=== PATIENT | female | born 1950 | race Caucasian/White ===

== ENCOUNTER 2020-06-01 03:11 | Emergency (ER) | payer MEDICARE, BC, SELFPAY ==
[2020-06-01] VITALS (8 sets, daily range): BP systolic 117–158; BP diastolic 54–97; PULSE 67–76; RESP 16–18; TEMP 37.1; O2SAT 90–98; BMI 39.4
--- NOTE | 2020-06-01 03:53 | CTR_ITS ---
PROCEDURE INFORMATION: Exam: CT Head Without Contrast Exam date and time: 06/01/2020 4:15 AM Age: 69 years old Clinical indication: Dizziness; Additional info: Dizziness/vomiting TECHNIQUE: Imaging protocol: Computed tomography of the head without contrast. Radiation optimization: All CT scans at this facility use at least one of these dose optimization techniques: automated exposure control; mA and/or kV adjustment per patient size (includes targeted exams where dose is matched to clinical indication); or iterative reconstruction. COMPARISON: No relevant prior studies available. RADIATION DOSE METRICS: Total DLP (mGy-cm): 801.5 FINDINGS: Brain: No acute intracranial hemorrhage or mass effect. There is very mild decreased attenuation in the periventricular white matter, likely from microvascular disease. There is an old lacunar infarct in the right basal ganglia region. No definite acute infarct by CT. MRI could be more sensitive/specific for detection, as clinically directed. Ventricles: Ventricle size is normal for age. Bones/joints: No definite acute skull fracture. Sinuses: Included paranasal sinuses are essentially clear. Mastoid air cells: No significant acute finding. Vasculature: Vascular calcifications in the internal carotid and vertebral basilar systems. CT/CT head wo con* [id number] IMPRESSION: 1. No acute intracranial hemorrhage or mass effect. 2. Changes of microvascular disease, and old right lacunar infarct. 3. No definite acute infarct by CT, see above. 4. Other findings discussed above. Radiation Dose CTDIVOL = (mGy): DLP = 801.5 (mGy-cm)
--- NOTE | 2020-06-01 03:53 | CTR_ITS ---
PROCEDURE INFORMATION: Exam: CT Cervical Spine Without Contrast Exam date and time: 06/01/2020 4:15 AM Age: 69 years old Clinical indication: Neck pain TECHNIQUE: Imaging protocol: Computed tomography images of the cervical spine without contrast. Radiation optimization: All CT scans at this facility use at least one of these dose optimization techniques: automated exposure control; mA and/or kV adjustment per patient size (includes targeted exams where dose is matched to clinical indication); or iterative reconstruction. COMPARISON: No relevant prior studies available. RADIATION DOSE METRICS: Total DLP (mGy-cm): 1573.21 FINDINGS: Vertebrae: On axial CT images, no definite acute fracture is visible. Sagittal and coronal reconstructions show no fracture or subluxation. Mild to moderate degenerative disc changes and facet joint arthritis at several levels. Discs/Spinal canal/Neural foramina: No definite/significant disc herniation by CT, MRI could be more sensitive if clinically indicated. Lungs: No significant acute abnormality in the upper lungs. CT/CT cervical spin wo con* [id number] IMPRESSION: 1. No definite acute fracture or subluxation by CT. 2. Other findings discussed above. Radiation Dose CTDIVOL = (mGy): DLP = 1573.21 (mGy-cm)
--- NOTE | 2020-06-01 03:53 | XRR_ITS ---
PROCEDURE INFORMATION: Exam: XR Chest, 1 View Exam date and time: 06/01/2020 4:30 AM Age: 69 years old Clinical indication: Patient HX: Dizziness, nausea, vertigo TECHNIQUE: Imaging protocol: XR of the chest Views: 1 view. COMPARISON: CR Chest 1 [place] [id number] 06/14/2019 7:33 PM FINDINGS: Lungs: Emphysematous change and interstitial prominence. Pleural space: No pleural effusion. Heart/Mediastinum: Cardiac silhouette upper limits of normal in size. Bones/joints: Osteopenia, degenerative change, and mild scoliosis. When correlating with the previous study, no significant interval changes are present. XR/XR chest 1V portable [id number] IMPRESSION: Stable appearance of the chest, not significantly changed from 06/14/19.
[2020-06-01] MEDS: diazePAM 5 mg Tablet PO (04:14)
[2020-06-01] MEDS: sodium chloride 0.9% 1,000 ML 999 ML IV (04:15)
[2020-06-01] MEDS: ondansetron 2 mg/ML SDV 2 mL 4 MG IVP (04:16)
[2020-06-01 04:33] LABS: Basophils % 0.4 %; Eosinophils # 0.3 10^3/uL (0.0-0.8); Eosinophils % 6.2 %; Hematocrit 38.9 % (37.0-47.0); Hemoglobin 12.8 g/dL (11.5-15.3); Lymphocytes # 0.4 10^3/uL (0.8-4.8); Lymphocytes % 6.8 %; Mean Corpuscular HGB Conc 32.9 g/dL (30.0-36.0); Mean Corpuscular Hemoglobin 30.2 pg (28.0-34.0); Mean Corpuscular Volume 91.7 fL (81-99); Mean Platelet Volume 12.6 fL (7.4-10.4); Monocytes # 0.5 10^3/uL (0.2-0.9); Monocytes % 9.7 %; Neutrophils # 4.09 10^3/uL (1.8-7.7); Neutrophils % 74.9 %; Nucleated Red Blood Cells % 0 %; Platelet Count 117 10^3/cmm (130-400); Red Blood Count 4.24 10^6/uL (4.1-5.3); White Blood Count 5.5 10^3/uL (4.0-10.0)
[2020-06-01 04:41] LABS: INR 0.99 (0.8-1.2)
[2020-06-01 04:50] LABS: Alanine Aminotransferase 24 U/L (0-33); Albumin Level 4.7 g/dL (3.5-5.2); Alkaline Phosphatase 89 IU/L (35-105); Anion Gap 16.3 (5-19); Aspartate Amino Transferase 22 U/L (0-32); Blood Urea Nitrogen 14 mg/dL (8-23); Calcium 10.5 mg/dL (8.5-10.5); Carbon Dioxide 21 mmol/L (22-29); Chloride 100 mmol/L (98-107); Globulin 2.2 g/dL (1.3-4.6); Glucose 184 mg/dL (65-115); Lipase 31 U/L (13-60); Magnesium 1.5 mg/dL (1.7-2.3); Osmolality Calculated 277 mOsm/kg (285-295); Potassium 4.3 mmol/L (3.5-5.1); Sodium 133 mmol/L (136-145); Total Bilirubin 0.4 mg/dL (0.15-1.2); Total Protein 6.9 g/dL (6.6-8.7)
[2020-06-01 04:51] LABS: Troponin(5th) Baseline 6 ng/L (0-10)
[2020-06-01 04:54] LABS: Alcohol Level < 10 mg/dL (0-10)
--- NOTE | 2020-06-01 05:40 | ED_ITS ---
Documented by User: Hannah Carbajal 06/01/20 05:42 HPI - Dizziness General: Chief Complaint: Nausea/Vomiting/Diarrhea Stated Complaint: n/v x 3 days; dizzy Time Seen by Provider: 06/01/20 03:24 Source: patient Mode of arrival: ambulatory Limitations: no limitations History of Present Illness: HPI Narrative: Betty is a nice 69-year-old female who comes in complaining of a 3-day history of dizziness described as feeling off balance. She has associated nausea and vomiting and a headache. She states that she has had a headache ever since she fell in October and has been having these dizzy spells ever since then. Patient denies any chest pain, shortness of breath, palpitations, lightheadedness or otherwise. Patient states her symptoms are worse when she moves quickly or moves her head in certain positions. Associated symptoms: Reports headache(s), nausea and vomiting; Denies change in hearing, chest pain, chills, diaphoresis, ear discharge, malaise, palpitations or syncope Associated neuro symptoms: Deny confusion or numbness in extremities Review of Systems Const: Denies: fever(s), chills, body aches, fatigue, malaise or diaphoresis Eyes: Denies: change in vision, blurry vision, blind spots, photophobia, eye discharge or eye redness ENMT: Denies: throat pain, odynophagia, hoarseness, swelling of lips/tongue, oral sores, ear or mastoid pain, ear discharge, change in hearing or nasal di scharge Card: Denies: chest pain, palpitations, irregular heart rhythm, edema, lightheadedness, syncope, pre-syncope, dyspnea on exertion or orthopnea Resp: Denies: dyspnea, productive cough, non-productive cough, wheezing, hemoptysis or chest congestion GI: Reports: nausea and vomiting; Denies: abdominal pain, hematemesis, coffee ground emesis, heartburn, diarrhea, constipation, GI cramping, hematochezia or melena : Denies: flank pain, dysuria, urinary frequency, urinary urgency or hematuria Musc: Denies: neck pain, back pain, extremity pain, extremity swelling, joint pain, joint swelling, joint redness, joint warmth or joint stiffness Skin/Breast: Denies: rash, pruritus, erythema, skin tenderness or jaundice Neuro: Reports: headache(s), dizziness and vertigo; Denies: numbness in extremities, weakness in extremities, sensory changes, lack of coordination, difficulty walking, confusion, Slurred speech present or seizure-like activity Jeremy/Lymph: Denies: easy bruising, easy bleeding, petechiae, purpura or enlarged lymph nodes All/Imm: Denies: urticaria, throat swelling, tongue swelling, facial swelling or acute wheezing Physical Exam Const: COMMON NORMALS: no acute distress, patient oriented x3, no limitations, healthy appearing and well nourished GENERAL APPEARANCE: cooperative, well kempt and well developed HENMT: COMMON NORMALS: normocephalic, atraumatic, external ears normal, EAC's normal and Normal external nose present HEAD & SCALP: normal to inspection, normocephalic and atraumatic FACE & SINUS: normal facial exam and face symmetric NOSE: Normal external nose present and Normal nares present EXTERNAL EAR: Yes external ears normal EXTERNAL AUDITORY CANAL: EAC's normal MOUTH: Normal oral and palatal mucosa present, lip normal and tongue normal Eye: COMMON NORMALS: Equal, round and reactive pupils present and conjunctivae normal GENERAL EYE: appearance normal, both eyes and all related structures ALIGNMENT: Yes alignment normal PERIORBITAL: periorbital findings normal EYELID: eyelids normal CONJUNCTIVA: Yes conjunctivae normal SCLERA: sclerae normal PUPIL: Yes Equal, round and reactive pupils present Neck/C-Spine: COMMON NORMALS: full ROM, no lymphadenopathy, supple, no meningeal signs and no JVD GENERAL: Yes normal visual inspection and Yes trachea midline Chest: COMMONS NORMALS: normal inspection of the chest and normal palpation of entire chest wall Resp: COMMON NORMALS: normal respiratory effort, No retractions and No use of accessory muscles EFFORT & INSPECTION: Yes able to speak in complete sentences and Yes symmetric chest movement AUSCULTATION: no crackles, no rales, no rhonchi and no wheezes Cardio: COMMON NORMALS: no JVD, regular rate, regular rhythm, S1 normal heart sound present and S2 normal heart sound present RATE: regular rate RHYTHM: regular rhythm HEART SOUNDS: S1 normal heart sound present, S2 normal heart sound present, no click, no gallops, no murmurs, no rubs and abnormal split S2 GI: COMMON NORMALS: Soft to palpation and No hepatosplenomegaly present PALPATION: Yes Soft to palpation, No Tenderness to palpation present (GI), No Guarding due to palpation present (GI), No Rigid due to palpation, Yes No hepatosplenomegaly present, No Hernia present, No Palpable mass present and No Pulsatile mass present : COMMON NORMALS: Yes no CVA tenderness BLADDER/KIDNEY EXAM: Yes no CVA tenderness EXTERNAL FEMALE EXAM: No Hernia present Back/Pelvis: COMMON NORMALS: no CVA tenderness, thoracic and lumbar spine normal to inspection, no thoracic nor lumbar tenderness and thoraco-lumbar ROM normal Extremity: COMMON NORMALS: normal to inspection, full ROM, capillary refill normal, no joint enlargement, no clubbing, cyanosis or edema and no calf tenderness Neuro: COMMON NORMALS: patient oriented x3, CN's II-XII intact bilaterally, moves all extremities, no focal motor deficits and no sensory deficits noted MENINGEAL SIGNS: Yes no meningeal signs SPEECH: speech normal Psych: COMMON NORMALS: mental status grossly normal, Normal thought process present, cooperative, normal affect, speech normal and activity/motor behavior normal APPEARANCE: Yes well kempt SPEECH: Yes normal speech THOUGHT PROCESS: Normal thought process present Skin: COMMON NORMALS: no rashes or lesions noted, turgor normal, no jaundice, no petechiae and no mottling GENERAL SKIN EXAM: no rashes or lesions noted and turgor normal Course Vital Signs: Vital signs: Vital Signs Temperature 98.7 F 06/01/20 03:21 Pulse Rate 67 06/01/20 07:39 Respiratory Rate 18 06/01/20 07:39 Blood Pressure 120/54 06/01/20 07:39 Pulse Oximetry 98 06/01/20 07:39 MDM - Dizziness Lab Data: Labs: Lab Results 06/01/20 06/01/20 06/01/20 Range/Units 04:10 04:10 04:10 WBC 5.5 (4.0-10.0) 10^3/ uL RBC 4.24 (4.1-5.3) 10^6/u L Hgb 12.8 (11.5-15.3) g/dL Hct 38.9 (37.0-47.0) % MCV 91.7 (81-99) fL MCH 30.2 (28.0-34.0) pg MCHC 32.9 (30.0-36.0) g/dL RDW 13.0 (12.1-15.1) % Plt Count 117 L (130-400) 10^3/c mm MPV 12.6 H (7.4-10.4) fL Neut % (Auto) 74.9 % Lymph % (Auto) 6.8 % [place] % (Auto) 9.7 % Eos % (Auto) 6.2 % Baso % (Auto) 0.4 % Neut # (Auto) 4.09 (1.8-7.7) 10^3/u L Lymph # (Auto) 0.4 L (0.8-4.8) 10^3/u L [place] # (Auto) 0.5 (0.2-0.9) 10^3/u L Eos # (Auto) 0.3 (0.0-0.8) 10^3/u L Baso # (Auto) 0.0 (0.0-0.1) 10^3/u L Nucleated RBC % (a uto) 0 % Nucleated RBCs # 0.0 /100WBC PT 13.40 H (10.5-13.3) SECO NDS INR 0.99 (0.8-1.2) Sodium 133 L (136-145) mmol/L Potassium 4.3 (3.5-5.1) mmol/L Chloride 100 (98-107) mmol/L Carbon Dioxide 21 L (22-29) mmol/L Anion Gap 16.3 (5-19) BUN 14 (8-23) mg/dL Creatinine 1.0 H (0.5-0.9) mg/dL GFR Calculation 55.0 L (90-130) mL/min Glucose 184 H (65-115) mg/dL Calculated Osmolal ity 277 L (285-295) mOsm/k g Calcium 10.5 (8.5-10.5) mg/dL Magnesium 1.5 L (1.7-2.3) mg/dL Total Bilirubin 0.4 (0.15-1.2) mg/dL AST 22 (0-32) U/L ALT 24 (0-33) U/L Alkaline Phosphata se 89 (35-105) IU/L Troponin T Baselin e (0-10) ng/L Troponin T 120 Min tolowa dee-ni' (0-10) ng/L Delta Troponin T (0-10) ABS# Total Protein 6.9 (6.6-8.7) g/dL Albumin 4.7 (3.5-5.2) g/dL Globulin 2.2 (1.3-4.6) g/dL Lipase 31 (13-60) U/L Urine Color (Yellow) Urine Appearance (CLEAR) Urine pH (5-7) Ur Specific Gravit y (1.005-1.030) Urine Protein (Negative) Urine Glucose (UA) (Normal) Urine Ketones (Negative) Urine Blood (Negative) Urine Nitrate (Negative) Urine Bilirubin (NEGATIVE) Urine Urobilinogen (Negative) mg/dL Ur Leukocyte Tiffany ase (Negative) Urine RBC (0-2) /hpf Urine WBC (0-5) /hpf Ur Squamous Epith Cells (0-5) Urine Bacteria (NONE) Ethyl Alcohol < 10 (0-10) mg/dL 06/01/20 06/01/20 06/01/20 Range/Units 04:10 06:03 06:22 WBC (4.0-10.0) 10^3/ uL RBC (4.1-5.3) 10^6/u L Hgb (11.5-15.3) g/dL Hct (37.0-47.0) % MCV (81-99) fL MCH (28.0-34.0) pg MCHC (30.0-36.0) g/dL RDW (12.1-15.1) % Plt Count (130-400) 10^3/c mm MPV (7.4-10.4) fL Neut % (Auto) % Lymph % (Auto) % [place] % (Auto) % Eos % (Auto) % Baso % (Auto) % Neut # (Auto) (1.8-7.7) 10^3/u L Lymph # (Auto) (0.8-4.8) 10^3/u L [place] # (Auto) (0.2-0.9) 10^3/u L Eos # (Auto) (0.0-0.8) 10^3/u L Baso # (Auto) (0.0-0.1) 10^3/u L Nucleated RBC % (a uto) % Nucleated RBCs # /100WBC PT (10.5-13.3) SECO NDS INR (0.8-1.2) Sodium (136-145) mmol/L Potassium (3.5-5.1) mmol/L Chloride (98-107) mmol/L Carbon Dioxide (22-29) mmol/L Anion Gap (5-19) BUN (8-23) mg/dL Creatinine (0.5-0.9) mg/dL GFR Calculation (90-130) mL/min Glucose (65-115) mg/dL Calculated Osmolal ity (285-295) mOsm/k g Calcium (8.5-10.5) mg/dL Magnesium (1.7-2.3) mg/dL Total Bilirubin (0.15-1.2) mg/dL AST (0-32) U/L ALT (0-33) U/L Alkaline Phosphata se (35-105) IU/L Troponin T Baselin e 6 (0-10) ng/L Troponin T 120 Min tolowa dee-ni' 6.00 (0-10) ng/L Delta Troponin T 0 (0-10) ABS# Total Protein (6.6-8.7) g/dL Albumin (3.5-5.2) g/dL Globulin (1.3-4.6) g/dL Lipase (13-60) U/L Urine Color Yellow (Yellow) Urine Appearance Clear (CLEAR) Urine pH 5 (5-7) Ur Specific Gravit y 1.020 (1.005-1.030) Urine Protein Neg (Negative) Urine Glucose (UA) Norm (Normal) Urine Ketones Negative (Negative) Urine Blood Neg (Negative) Urine Nitrate Negative (Negative) Urine Bilirubin Neg (NEGATIVE) Urine Urobilinogen Norm (Negative) mg/dL Ur Leukocyte Tiffany ase Negative (Negative) Urine RBC None (0-2) /hpf Urine WBC None (0-5) /hpf Ur Squamous Epith Cells Rare (0-5) Urine Bacteria Trace (NONE) Ethyl Alcohol (0-10) mg/dL Discharge Plan Discharge Patient Disposition: Home, Self-Care Clinical Impression: Acute labyrinthitis Qualifiers: Laterality: bilateral Qualified Code(s): H83.03 - Labyrinthitis, bilateral Condition: Stable Prescriptions: New meclizine 25 mg tablet 25 mg PO QID PRN (Reason: dizziness) Qty: 30 RF: 0 ondansetron 4 mg tablet,disintegrating 4 mg PO Q8H PRN (Reason: nausea and vomiting) Qty: 15 RF: 0 Discharge Orders: Discharge Order (Routine); Ordered 06/01/20 Ordered By: Preet Shearer Referrals: Naren Castle MD [Primary Care Provider] - Sign Out Sign Out Data: Patient Sign Out occurred on 06/01/20 at 07:23. Patient's care was discussed, and care was transferred from to Preet Shearer. Coding Level of Care Code ED Global Category Manager for Chg Fwd Exam Comprehensive Documented by User: Preet Shearer, 06/01/20 07:44 HPI - Dizziness General: Chief Complaint: Nausea/Vomiting/Diarrhea Stated Complaint: n/v x 3 days; dizzy Time Seen by Provider: 06/01/20 03:24 Course Vital Signs: Vital signs: Vital Signs Temperature 98.7 F 06/01/20 03:21 Pulse Rate 67 06/01/20 07:39 Respiratory Rate 18 06/01/20 07:39 Blood Pressure 120/54 06/01/20 07:39 Pulse Oximetry 98 06/01/20 07:39 MDM - Dizziness Lab Data: Labs: Lab Results 06/01/20 06/01/20 06/01/20 Range/Units 04:10 04:10 04:10 WBC 5.5 (4.0-10.0) 10^3/ uL RBC 4.24 (4.1-5.3) 10^6/u L Hgb 12.8 (11.5-15.3) g/dL Hct 38.9 (37.0-47.0) % MCV 91.7 (81-99) fL MCH 30.2 (28.0-34.0) pg MCHC 32.9 (30.0-36.0) g/dL RDW 13.0 (12.1-15.1) % Plt Count 117 L (130-400) 10^3/c mm MPV 12.6 H (7.4-10.4) fL Neut % (Auto) 74.9 % Lymph % (Auto) 6.8 % [place] % (Auto) 9.7 % Eos % (Auto) 6.2 % Baso % (Auto) 0.4 % Neut # (Auto) 4.09 (1.8-7.7) 10^3/u L Lymph # (Auto) 0.4 L (0.8-4.8) 10^3/u L [place] # (Auto) 0.5 (0.2-0.9) 10^3/u L Eos # (Auto) 0.3 (0.0-0.8) 10^3/u L Baso # (Auto) 0.0 (0.0-0.1) 10^3/u L Nucleated RBC % (a uto) 0 % Nucleated RBCs # 0.0 /100WBC PT 13.40 H (10.5-13.3) SECO NDS INR 0.99 (0.8-1.2) Sodium 133 L (136-145) mmol/L Potassium 4.3 (3.5-5.1) mmol/L Chloride 100 (98-107) mmol/L Carbon Dioxide 21 L (22-29) mmol/L Anion Gap 16.3 (5-19) BUN 14 (8-23) mg/dL Creatinine 1.0 H (0.5-0.9) mg/dL GFR Calculation 55.0 L (90-130) mL/min Glucose 184 H (65-115) mg/dL Calculated Osmolal ity 277 L (285-295) mOsm/k g Calcium 10.5 (8.5-10.5) mg/dL Magnesium 1.5 L (1.7-2.3) mg/dL Total Bilirubin 0.4 (0.15-1.2) mg/dL AST 22 (0-32) U/L ALT 24 (0-33) U/L Alkaline Phosphata se 89 (35-105) IU/L Troponin T Baselin e (0-10) ng/L Troponin T 120 Min tolowa dee-ni' (0-10) ng/L Delta Troponin T (0-10) ABS# Total Protein 6.9 (6.6-8.7) g/dL Albumin 4.7 (3.5-5.2) g/dL Globulin 2.2 (1.3-4.6) g/dL Lipase 31 (13-60) U/L Urine Color (Yellow) Urine Appearance (CLEAR) Urine pH (5-7) Ur Specific Gravit y (1.005-1.030) Urine Protein (Negative) Urine Glucose (UA) (Normal) Urine Ketones (Negative) Urine Blood (Negative) Urine Nitrate (Negative) Urine Bilirubin (NEGATIVE) Urine Urobilinogen (Negative) mg/dL Ur Leukocyte Tiffany ase (Negative) Urine RBC (0-2) /hpf Urine WBC (0-5) /hpf Ur Squamous Epith Cells (0-5) Urine Bacteria (NONE) Ethyl Alcohol < 10 (0-10) mg/dL 06/01/20 06/01/20 06/01/20 Range/Units 04:10 06:03 06:22 WBC (4.0-10.0) 10^3/ uL RBC (4.1-5.3) 10^6/u L Hgb (11.5-15.3) g/dL Hct (37.0-47.0) % MCV (81-99) fL MCH (28.0-34.0) pg MCHC (30.0-36.0) g/dL RDW (12.1-15.1) % Plt Count (130-400) 10^3/c mm MPV (7.4-10.4) fL Neut % (Auto) % Lymph % (Auto) % [place] % (Auto) % Eos % (Auto) % Baso % (Auto) % Neut # (Auto) (1.8-7.7) 10^3/u L Lymph # (Auto) (0.8-4.8) 10^3/u L [place] # (Auto) (0.2-0.9) 10^3/u L Eos # (Auto) (0.0-0.8) 10^3/u L Baso # (Auto) (0.0-0.1) 10^3/u L Nucleated RBC % (a uto) % Nucleated RBCs # /100WBC PT (10.5-13.3) SECO NDS INR (0.8-1.2) Sodium (136-145) mmol/L Potassium (3.5-5.1) mmol/L Chloride (98-107) mmol/L Carbon Dioxide (22-29) mmol/L Anion Gap (5-19) BUN (8-23) mg/dL Creatinine (0.5-0.9) mg/dL GFR Calculation (90-130) mL/min Glucose (65-115) mg/dL Calculated Osmolal ity (285-295) mOsm/k g Calcium (8.5-10.5) mg/dL Magnesium (1.7-2.3) mg/dL Total Bilirubin (0.15-1.2) mg/dL AST (0-32) U/L ALT (0-33) U/L Alkaline Phosphata se (35-105) IU/L Troponin T Baselin e 6 (0-10) ng/L Troponin T 120 Min tolowa dee-ni' 6.00 (0-10) ng/L Delta Troponin T 0 (0-10) ABS# Total Protein (6.6-8.7) g/dL Albumin (3.5-5.2) g/dL Globulin (1.3-4.6) g/dL Lipase (13-60) U/L Urine Color Yellow (Yellow) Urine Appearance Clear (CLEAR) Urine pH 5 (5-7) Ur Specific Gravit y 1.020 (1.005-1.030) Urine Protein Neg (Negative) Urine Glucose (UA) Norm (Normal) Urine Ketones Negative (Negative) Urine Blood Neg (Negative) Urine Nitrate Negative (Negative) Urine Bilirubin Neg (NEGATIVE) Urine Urobilinogen Norm (Negative) mg/dL Ur Leukocyte Tiffany ase Negative (Negative) Urine RBC None (0-2) /hpf Urine WBC None (0-5) /hpf Ur Squamous Epith Cells Rare (0-5) Urine Bacteria Trace (NONE) Ethyl Alcohol (0-10) mg/dL Discharge Plan Discharge Patient Disposition: Home, Self-Care Clinical Impression: Acute labyrinthitis Qualifiers: Laterality: bilateral Qualified Code(s): H83.03 - Labyrinthitis, bilateral Condition: Stable Prescriptions: New meclizine 25 mg tablet 25 mg PO QID PRN (Reason: dizziness) Qty: 30 RF: 0 ondansetron 4 mg tablet,disintegrating 4 mg PO Q8H PRN (Reason: nausea and vomiting) Qty: 15 RF: 0 Discharge Orders: Discharge Order (Routine); Ordered 06/01/20 Ordered By: Preet Shearer Referrals: Naren Castle MD [Primary Care Provider] - Sign Out Sign Out Data: Patient Sign Out occurred on 06/01/20 at 07:23. Patient's care was discussed, and care was transferred from to Preet Shearer. Coding Level of Care Code ED Global Category Manager for Chg Fwd Exam Comprehensive
--- NOTE | 2020-06-01 05:54 | ECG_ITS ---
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 Measurements Intervals Davey Rate: 67 P: 15 WY: 195 QRS: -2 QRSD: 93 T: 3 QT: 406 QTc: 430 Interpretive Statements SINUS RHYTHM MINIMAL VOLTAGE CRITERIA FOR LVH, CONSIDER NORMAL VARIANT [MEETS CRITERIA IN ONE OF: R(aVL), S(V1), R(V5), R(V5/V6)+S(V1)] NONSPECIFIC T-WAVE ABNORMALITY No previous ECG available for comparison Electronically Signed On 06-01-2020 17:20:00 CDT by Dionne Mccoy M.D. [id number]
[2020-06-01 06:48] LABS: Troponin 5 2HR Delta 0 ABS# (0-10)
--- NOTE | 2020-06-01 07:13 | PC.NURSE ---
REPORT GIVEN TO LINH Benitez FOR PT HAND OFF.
--- NOTE | 2020-06-01 07:14 | PC.NURSE ---
Resumed care at this time.
[2020-06-01 07:27] LABS: Add Urine Culture? No; Bacteria Urine TRACE; Bilirubin Urine Neg (NEGATIVE); Blood Urine Neg (Negative); Glucose Urine UA Norm (Normal); Ketones Urine Negative (Negative); Leukocyte Esterase Urine Negative (Negative); Nitrate Urine Negative (Negative); Protein Urine Neg (Negative); Squamous Epithelial Cell Urine RARE (0-5); Urine Appearance Clear (CLEAR); Urine Color Yellow (Yellow); Urobilinogen Urine Norm (Negative); pH Urine 5 (5-7)
== END 2020-06-01 08:03 | disposition home or self-care (01) ==
PROVIDERS: Emergency Medicine; Emergency Provider Family Medicine; PCP Family Medicine
DX: H83.03 Labyrinthitis, bilateral (principal)
CPT/HCPCS: 12345; 70450; 71045; 72125; 80053; 80307; 81001; 83690; 83735; 84484; 85025; 85610; 93005; 96361; 96374; 96375; 99283; 99284; J2405; J7030

== ENCOUNTER 2020-06-07 14:07 | Outpatient (CLI) | payer MEDICARE, BC, SELFPAY ==
--- NOTE | 2020-06-07 14:17 | MM_ITS ---
WS: [id number] BILATERAL DIGITAL SCREENING MAMMOGRAPHY WITH CAD CLINICAL INFORMATION: SCREENING HISTORY: Screening mammogram. No current complaints. COMPARISON: TECHNIQUE: Bilateral CC and MLO views. FINDINGS: Scattered fibroglandular densities bilaterally. No suspicious focal mass, asymmetry, calcifications, or architectural distortion. No evidence of malignancy. Punctate and lucent centered calcifications. Stable intramammary lymph node right breast. MM/[place] [id number] IMPRESSION: BI-RADS: 2-Benign FOLLOW UP: 1 Year Follow-up Recommend return to annual screening mammography.
--- NOTE | 2020-06-07 15:30 | XR_ITS ---
WS: [id number] Bone mineral density performed on a [place], 06/07/2020 Clinical data: HYPERCALCEMIA Findings: The first 4 lumbar vertebral bodies demonstrated the bone mineral density of 0.835 g/cm2 for a young adult T score of -2.9. Measurement of the left hip reveals a bone mineral density of 0.711 g/cm2 with a young adult T score of -2.4. Measurement of the right hip reveals the bone mineral density of 0.728 g/cm2 for young adult T score of -2.2. XR/XR DEXA axial skeleton* [id number] Impression: 1. Osteoporosis of the lumbar spine. 2. Osteopenia of both hips.
== END 2020-06-07 14:08 | disposition home or self-care (01) ==
LOC: RADSHAW 14:14
PROVIDERS: PCP Family Medicine; Visit Provider Family Medicine
DX: Z12.31 Encounter for screening mammogram for malignant neoplasm of breast (principal); E83.52 Hypercalcemia; M81.8 Other osteoporosis without current pathological fracture; M85.88 Other specified disorders of bone density and structure, other site
CPT/HCPCS: 77067; 77080

== ENCOUNTER 2021-07-02 14:29 | Outpatient (CLI) | payer MEDICARE, BC, SELFPAY ==
--- NOTE | 2021-07-02 14:37 | USCV_ITS ---
Betty Mead Age: 70 Gender: F : 1950 Exam Date: 07/02/2021 14:59 Ordering Phys: Naren Castle MD Technologist: Kassy Bush [place] [facility] [place]: SWELLING LEFT LEG PAIN HISTORY: Lower extremity swelling. PROCEDURES: Venous duplex imaging was performed in only the left lower extremity. The following venous structures were evaluated: common femoral vein, profunda vein, proximal portion of the greater saphenous vein, superficial femoral vein, and the popliteal vein. In addition, the posterior tibial and peroneal trunk were evaluated. FINDINGS: Normal 2-D Doppler and augmentation and compressibility throughout the lower extremity venous structures. Additional imaging through the proximal calf veins also reveals no thrombus. Limited evaluation of the greater saphenous vein is patent with no thrombus. There appears to be a left medial knee toure's cyst or other fluid collection seen. Pt states there has been no trauma to the left leg or knee. CONCLUSIONS No evidence of left lower extremity DVT. Left popliteal cyst measuring 3.9 x 0.6 x 1.7cm Armadno Clemente MD (Electronically Signed) Final Date: 02 July 2021 17:40 S
--- NOTE | 2021-07-02 14:40 | XRR_ITS ---
PROCEDURE INFORMATION: Exam: XR Left Knee Exam date and time: 07/02/2021 2:40 PM Age: 70 years old Clinical indication: Pain; Knee; Left; Additional info: Left knee pain TECHNIQUE: Imaging protocol: XR Left knee. Views: 3 views. COMPARISON: CR [facility] [place] Foot LEFT 3 views 03/04/2018 10:46 AM FINDINGS: Bones/joints: Unremarkable. No significant finding. Soft tissues: Normal. Vasculature: Scattered atherosclerosis. XR/XR knee LT 3V* [id number] IMPRESSION: No significant knee joint abnormality.
== END 2021-07-02 14:30 | disposition home or self-care (01) ==
LOC: RAD 14:36
PROVIDERS: PCP Family Medicine; Visit Provider Family Medicine
DX: M79.89 Other specified soft tissue disorders (principal); M25.562 Pain in left knee
CPT/HCPCS: 73562; 93971

== ENCOUNTER → 2021-09-26 10:36 | Outpatient (BNVA) | payer MEDICARE, BC, SELFPAY | PROVIDERS: PCP Family Medicine; Referring Provider Family Medicine; Visit Provider Specialist | DX: M17.12 Unilateral primary osteoarthritis, left knee (principal) | CPT/HCPCS: 73560; 73565 ==

== ENCOUNTER → 2021-09-28 11:23 | Outpatient (BNVA) | payer MEDICARE, BC, SELFPAY | PROVIDERS: PCP Family Medicine; Visit Provider Specialist | DX: Z20.822 Contact with and (suspected) exposure to COVID-19 (principal); Z01.818 Encounter for other preprocedural examination | CPT/HCPCS: 87635 ==

== ENCOUNTER 2021-10-05 07:27 | Day surgery (SDC) | payer MEDICARE, BC, SELFPAY ==
[2021-10-04 16:07] VITALS: BMI 34.3
[2021-10-05] VITALS (8 sets, daily range): BP systolic 133–187; BP diastolic 64–104; PULSE 50–69; RESP 16–19; TEMP 36.1–36.9; O2SAT 90–98
[2021-10-05 08:13] LABS: Glucose Point of Care 140 mg/dL (70-110)
[2021-10-05] MEDS: sodium chloride 0.9% 1,000 ML 30 ML IV (08:25)
[2021-10-05] MEDS: CELEcoxib 200 mg Capsule 400 MG PO (08:26)
[2021-10-05] MEDS: acetaminophen 1,000 MG/100 ML PIGGYBACK 400 MG IV (08:27)
--- NOTE | 2021-10-05 08:38 | ANES.PREANE2 ---
Pre-Anesthetic Assessment Pre-Anesthetic Assessment: Height/Weight: Height 1.63 m Weight 90.718 kg Temp Pulse Resp BP Pulse Ox 97.5 F L 60 16 160/104 98 10/05/21 07:49 10/05/21 07:49 10/05/21 07:49 10/05/21 07:49 10/05/21 07:49 Preop Diagnosis: Left knee medial meniscal tear, patellar tendinitis Proposed Procedure: Operation Date: 10/05/21 09:05 Proposed Procedures p Knee Arthroscopy 92417 S83.242A(Left) - Carolyn Badleras MD Familial anesthetic complications: none Was Beta Maggie taken within 24 hours: N/A Was Clonidine taken within 24 hours: N/A Last intake: Intake Last Liquid Date 10/04/21 Last Liquid Time 20:00 Last Solid Date 10/04/21 Last Solid Time 19:30 Social: Social History: No alcohol and No tobacco Exam: Pre-Anes Outpt Exam: alert, oriented x 3, clear to auscultation bilaterally and regular rate & rhythm Airway: Cervical ROM: WNL MP: 2 Dentition: Full CV/HEM: CV/HEM: HTN Comments: Patient had episode several years ago while traveling where she had syncopal episode. She states she was on a diet and drinking excess water and was found to have low potassium and magnesium. Her HR was 30s and there was discussion that she might need pacemaker. She has since seen marketing communications associate in [place] and Dr rg. No further heart issues and it was decided no pacemaker necessary and no need for any further evaluation. pateint states she can achieve > 4 METS with no symptoms Metabolic: Metabolic: DM and Hyperlipidemia Anesthetic Plan: ASA status: 3 Anesthesia: General Risk of > 500 ml blood loss (7ml/kg in children): No Meds/Allergies Current Medications: Current Medications Generic Name Dose Route Start Last Admin Trade Name Freq PRN Reason Stop Dose Admin Sodium Chloride 1,000 mls @ 30 ml s/hr 10/05/21 07:45 10/05/21 08:25 Sodium Chloride 0.9% IV 10/06/21 07:44 30 mls/hr .Q24H MARIANO Administration PFSH Anesthesia PFSH: Medical History (Updated 09/28/21 @ 12:51 by Carolyn Balderas MD) Benign essential HTN Bradycardia Depression Diabetes Dyslipidemia Glaucoma Labyrinthitis Osteoporosis Syncope and collapse The EKG from 06/01/2020 revealed sinus rhythm, minimal left axis deviation, minimal voltage criteria for LVH and some nonspecific T wave changes. T2DM (type 2 diabetes mellitus) Surgical History H/O hysterectomy with oophorectomy Hx of appendectomy Hx of cataract removal with insertion of prosthetic lens Family History Other Hypertension Pacemaker Stroke Social History Smoking and tobacco status: never smoked Alcohol intake: never Data Anesthesia CBC & Chem 7: 10/05/21 08:10 Other Labs: Laboratory Results - last 48 hr 10/05/21 08:08 POC Glucose 140 H Cardiac Studies: No Data to Display
[2021-10-05 08:53] LABS: Alanine Aminotransferase 16 U/L (0-33); Albumin Level 4.4 g/dL (3.5-5.2); Alkaline Phosphatase 106 IU/L (35-105); Anion Gap 15.1 (5-19); Aspartate Amino Transferase 13 U/L (0-32); Blood Urea Nitrogen 15 mg/dL (8-23); Calcium 10.2 mg/dL (8.5-10.5); Carbon Dioxide 22 mmol/L (22-29); Chloride 106 mmol/L (98-107); Creatinine Clr Calc Pharmacy 71.3868; Globulin 2.5 g/dL (1.3-4.6); Glomerular Filtration Rate 82.7 mL/min (90-130); Glucose 144 mg/dL (65-115); Osmolality Calculated 291 mOsm/kg (285-295); Potassium 4.1 mmol/L (3.5-5.1); Sodium 139 mmol/L (136-145); Total Bilirubin 0.4 mg/dL (0.15-1.2); Total Protein 6.9 g/dL (6.6-8.7)
--- NOTE | 2021-10-05 09:15 | W.PM.OPSUD ---
Surgery/Procedure H&P Update DATE OF PROCEDURE: October 05, 2021 DATE H&P PERFORMED: 09/28/21 H&P UPDATE INFORMATION: I have reviewed H&P completed within last 30 days, I have examined patient prior to procedure, No changes to prior documentation and H&P is in [facility] [place] on date indicated PREOP DIAGNOSIS: Left knee medial meniscal tear, patellar tendinitis PLANNED PROCEDURE: Operation Date: 10/05/21 09:05 Proposed Procedures p Knee Arthroscopy 44137 S83.242A(Left) - Carolyn Balderas MD Related Problem List Diagnoses (1) Patellar tendonitis of left knee: (2) Acute medial meniscus tear of left knee: Qualifiers: Encounter type: initial encounter Qualified Code(s): S83.242A - Other tear of medial meniscus, current injury, left knee, initial encounter
[2021-10-05] MEDS: morphine 4 mg/mL SDV 1 mL 8 MG XX (11:13)
[2021-10-05] MEDS: ondansetron 2 mg/ML SDV 2 mL 4 MG IVP (11:35)
--- NOTE | 2021-10-05 11:39 | PM.OP ---
Operative Report Date of procedure: October 05, 2021 Pre-op Diagnosis: Left knee medial and lateral meniscal tear, patellar tendinitis, DJD Post-op diagnosis: same Post-op Findings: Significant osteoarthritic change with grade IV chondromalacia medial femoral condyle and patella. Inner rim tearing of the lateral meniscus. Posterior horn medial meniscal tear as per MRI plus inner rim tearing. Procedure Done: Left arthroscopic knee surgery with partial medial and lateral meniscectomies, chondroplasties of the patella and medial femoral condyle Pathology: none sent Surgeon: Carolyn Baldears Anesthesia: General (ASA 3) Estimated blood loss (mL): 20 Tourniquet time (min): 1 Tourniquet time: At 250 mmHg. Tourniquet removed after 1 minute secondary to venous tourniquet. IV fluids (mL): 800 Urine output (mL): 0 Urine output: No Recinos Complications: None Findings: Inner rim medial and lateral meniscal tearing with posterior horn medial meniscal tear, significant chondromalacia and osteoarthritic change along the medial femoral condyle and medial tibial plateau as well as the patellofemoral joint. Condition: stable Disposition: PACU (Then to same-day surgery for discharge to home) Brief History: This 70-year-old woman presented to my office after having an injury to her left knee. The patient had an MRI which demonstrated a posterior horn medial meniscal tear. By x-ray, she had some osteoarthritic changes. She wished to have the knee addressed as it was impacting significantly her activities of daily living. After discussion, we elected to proceed with arthroscopic knee surgery. Risks and complications were discussed with the patient. She consented to the surgical procedure. Questions were answered. Procedure: Patient was brought to the operating theater and after undergoing adequate general anesthesia, ASA 3, the patient's left lower extremity was prepped and draped in usual fashion utilizing DuraPrep. A tourniquet was placed high on the leg prior to prepping and draping. The tourniquet was elevated prior to commencement of the surgical procedure to 250 mmHg. Total tourniquet time was 1 minute. Elevation followed prepping and exsanguination, but the tourniquet functioned as a venous tourniquet as the patient's blood pressure skyrocketed once the tourniquet was elevated. The blood pressure decreased back to more normal for the patient once the tourniquet was removed. Prior to commencement of the surgical procedure, a surgical pause was performed. At the time of the surgical pause, we identified the site and side of surgery. We also confirmed the patient's identity and appropriate and timely administration of preoperative antibiotics. Preoperative surgical markings were also visualized at this time. Standard arthroscopic portals were utilized including superolateral, inferomedial, and inferolateral portals. The examination commenced in the suprapatellar pouch area where the patient was noted to have significant chondromalacia on the undersurface of the patella. The arthroscope was then passed in the medial compartment where there was noted to be significant chondromalacic changes of the medial femoral condyle and medial tibial plateau. There was also noted to be the posterior horn medial meniscal tear as described on the MRI with associated inner rim tearing of the meniscus as well. The arthroscope was then passed across the notch area where anterior cruciate ligament was visualized and found to be intact, but there was significant synovitis associated with this. The scope was passed into the lateral compartment with the knee in a [id number] position. Lateral meniscus was noted to have inner rim tearing. The lateral femoral condyle was without significant changes of chondromalacia. The lateral meniscus was addressed with the intra-articular shaver and heat wand to address the tearing. Once lateral meniscus had been thus prepared it was palpated and found to be intact and not displaceable into the knee joint. Scope was then returned to notch area where a synovectomy was performed. It was then passed into the medial compartment where the posterior horn tear of the medial meniscus was addressed with a combination of basket forceps, the intra-articular shaver, and the intra-articular heat wand. Additionally, the shaver and heat wand were used to address the significant chondromalacic changes over the entire weightbearing surface of the medial femoral condyle following this debridement of the chondromalacia and medial meniscus, the meniscus was palpated and found to be not displaceable into the knee joint. The arthroscope was then returned to the patellofemoral joint where a chondroplasty was performed of the undersurface of the patella. This chondroplasty involved use of the intra-articular shaver as well as the heat wand. Once the patella had been addressed, the scope was passed back through the knee compartments to evaluate for other abnormalities. Finding none, attention was directed to closure. The knee was copiously irrigated and suctioned dry. Following this, each portal was closed with a simple suture followed by Dermabond and Tegaderm. Additionally, the knee was injected with 28 mL of half percent ropivacaine and 8 mg of morphine. Additional 10 mL of ropivacaine was placed about the portals. Sterile dressing was placed consisting of the Dermabond, Steri-Strips, and OpSite followed by sterile soft roll and an Casey wrap. Patient was returned to Recovery Room in satisfactory condition where she will be discharged home to follow-up with me in the office as scheduled. There were no complications and no specimens. Associated Problem List Diagnoses (1) Primary osteoarthritis of left knee: (2) Acute medial meniscus tear of left knee: Qualifiers: Encounter type: initial encounter Qualified Code(s): S83.242A - Other tear of medial meniscus, current injury, left knee, initial encounter (3) Acute lateral meniscus tear of left knee: Qualifiers: Encounter type: initial encounter Qualified Code(s): S83.282A - Other tear of lateral meniscus, current injury, left knee, initial encounter (4) Patellar tendonitis of left knee:
[2021-10-05] MEDS: HYDROcodone-acetaminophen 5-325 mg Tablet 1 TAB PO (12:33)
--- NOTE | 2021-10-05 14:17 | ANE.PACU2 ---
Inpatient post-anesthesia follow up: Airway intact: Yes Vital signs: Temperature 97 F Pulse Rate 50 Respiratory Rate 16 Blood Pressure 156/64 Pulse Oximetry 96 Oxygen Delivery Me thod Room Air Oxygen Flow Rate 2 Fraction of Inspir ed Oxygen Hydration adequate: Yes Nausea and vomiting: No Pain level: 2 Mental status: Baseline
== END 2021-10-05 13:10 | disposition home or self-care (01) ==
PROVIDERS: PCP Family Medicine; Visit Provider Specialist
PROC: (CPT 29870; principal; 2021-10-05 08:55)
DX: S83.282A Other tear of lateral meniscus, current injury, left knee, initial encounter (principal); S83.242A Other tear of medial meniscus, current injury, left knee, initial encounter; X58.XXXA Exposure to other specified factors, initial encounter; M76.52 Patellar tendinitis, left knee; M17.12 Unilateral primary osteoarthritis, left knee; I10 Essential (primary) hypertension; E11.9 Type 2 diabetes mellitus without complications; E78.5 Hyperlipidemia, unspecified; M81.0 Age-related osteoporosis without current pathological fracture; Z82.49 Family history of ischemic heart disease and other diseases of the circulatory system; Z82.3 Family history of stroke
CPT/HCPCS: 29880; 36415; 36416; 80053; 82962; J0690; J1100; J2270; J2405; J2704; J2795; J3010; J3490; J7030

== ENCOUNTER 2021-11-06 14:32 | Outpatient (RCR) | payer MEDICARE, BC, SELFPAY | END 2021-11-23 23:59 | disposition home or self-care (01) | LOC: SPT 14:32 | PROVIDERS: PCP Family Medicine; Referring Provider Specialist; Visit Provider Specialist | DX: Z48.89 Encounter for other specified surgical aftercare (principal) | CPT/HCPCS: 97110; 97161 ==

== ENCOUNTER 2021-11-24 06:00 | Outpatient (RCR) | payer MEDICARE, BC, SELFPAY | END 2021-12-24 23:59 | disposition home or self-care (01) | LOC: SPT 06:00 | PROVIDERS: PCP Family Medicine; Referring Provider Specialist; Visit Provider Specialist | DX: Z47.89 Encounter for other orthopedic aftercare (principal); M17.12 Unilateral primary osteoarthritis, left knee | CPT/HCPCS: 97110 ==

== ENCOUNTER 2021-12-25 06:00 | Outpatient (RCR) | payer MEDICARE, BC, SELFPAY | END 2022-01-21 23:59 | disposition home or self-care (01) | LOC: SPT 06:00 | PROVIDERS: PCP Family Medicine; Referring Provider Specialist; Visit Provider Specialist | DX: Z47.89 Encounter for other orthopedic aftercare (principal); M17.12 Unilateral primary osteoarthritis, left knee | CPT/HCPCS: 97110; 97116 ==

== ENCOUNTER 2022-01-22 06:00 | Outpatient (RCR) | payer MEDICARE, BC, SELFPAY | END 2022-01-22 23:59 | disposition home or self-care (01) | LOC: SPT 06:00 | PROVIDERS: PCP Family Medicine; Referring Provider Specialist; Visit Provider Specialist | DX: Z47.89 Encounter for other orthopedic aftercare (principal); M17.12 Unilateral primary osteoarthritis, left knee | CPT/HCPCS: 97116; L1851 ==

== ENCOUNTER → 2022-02-06 10:12 | Outpatient (BNVA) | payer MEDICARE, BC, SELFPAY | PROVIDERS: PCP Family Medicine; Visit Provider Specialist | DX: M17.12 Unilateral primary osteoarthritis, left knee (principal) | CPT/HCPCS: 73560; 73565; 87635 ==

== ENCOUNTER 2022-02-12 15:40 | Observation (INO) | payer MEDICARE, BC, SELFPAY ==
[2022-02-08 10:07] VITALS: BMI 33.5
--- NOTE | 2022-02-08 10:16 | ECG_ITS ---
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 Measurements Intervals Vona Rate: 64 P: 175 MT: 195 QRS: 205 QRSD: 101 T: 167 QT: 416 QTc: 431 Interpretive Statements SINUS RHYTHM RIGHT AXIS DEVIATION [QRS AXIS > 100] NONSPECIFIC ST & T-WAVE ABNORMALITY Compared to ECG 06/01/2020 06:03:44 Right-axis deviation now present T-wave abnormality still present Electronically Signed On 02-08-2022 20:12:15 CDT by Cody Irizarry M.D. [id number]
--- NOTE | 2022-02-08 10:49 | P.ANESASSM_ITS ---
Pre-Anesthetic Assessment Height/Weight: Height 1.63 m Weight 88.451 kg Preop Diagnosis: Severe degenerative osteoarthritis left knee Operation Date: 02/12/22 10:30 Proposed Procedures p Total Knee Arthroplasty 22793/m87.08(Right) - Carolyn Balderas MD Familial anesthetic complications: None Social No alcohol and No tobacco Exam alert, oriented x 3, clear to auscultation bilaterally and regular rate & rhythm Airway Mallampati: Class II Dentition: other (1 missing) Pulmonary None reported CV/HEM Hypertension bradycardia None reported Hepatic None reported Metabolic Diabetes Mellitus and Hyperlipidemia Anesthetic Plan ASA status: 2 Anesthesia: Regional (specify below) Other: spinal + adductor canal Risk of > 500 ml blood loss (7ml/kg in children): No Medications/Allergies Home Medications Medication Instructions Recorded Confirmed Last Taken Type meclizine 25 mg tablet 25 mg PO QID PRN #30 tab 06/01/20 02/08/22 08/08/21 Rx amlodipine 5 mg tablet 5 mg PO DAILY 07/18/20 02/08/22 10/04/21 History biotin 10 mg tablet 10 mg PO DAILY 07/18/20 02/08/22 10/04/21 History calcium carbonate 600 mg calcium 600 mg PO DAILY 07/18/20 02/08/22 10/03/21 H istory (1,500 mg) tablet (Calcium) diphenhydramine HCl 25 mg capsule 25 mg PO DAILY cap 07/18/20 02/08/22 10/04/21 History (Benadryl) ergocalciferol (vitamin D2) 50 mcg 50 mcg PO DAILY 07/18/20 02/08/22 10/04/21 History (2,000 unit) capsule glipizide 5 mg tablet 2.5 mg PO DAILY 07/18/20 02/08/22 10/04/21 08:00 History sitagliptin 100 mg tablet (Januvia) 100 mg PO DAILY 07/18/20 02/08/22 10/04/21 History fenofibrate 160 mg tablet 160 mg PO DAILY 10/04/21 02/08/22 10/04/21 History trazodone 150 mg tablet 150 mg PO BEDTIME 10/04/21 02/08/22 10/04/21 History valsartan 80 mg tablet (Diovan) 80 mg PO DAILY 02/06/22 02/08/22 Unknown History Allergies Allergy/AdvReac Type Severity Reaction Status Date / Time codeine Allergy ADR-Nausea Verified 02/08/22 10:03 [facility] Anesthesia Medical History Benign essential HTN Bradycardia Depression Diabetes Dyslipidemia Glaucoma Labyrinthitis Osteoporosis Syncope and collapse The EKG from 06/01/2020 revealed sinus rhythm, minimal left axis deviation, minimal voltage criteria for LVH and some nonspecific T wave changes. T2DM (type 2 diabetes mellitus) Surgical History H/O hysterectomy with oophorectomy Hx of appendectomy Hx of cataract removal with insertion of prosthetic lens Family History Other Hypertension Pacemaker Stroke Social History Smoking and tobacco status: never smoked Alcohol intake: never Data Anesthesia : 02/08/22 10:37 02/08/22 10:37 Cardiac Studies: No Data to Display
[2022-02-08 10:50] LABS: Basophils # 0.1 10^3/uL (0.0-0.1); Basophils % 0.9 %; Eosinophils # 0.2 10^3/uL (0.0-0.8); Eosinophils % 2.9 %; Hematocrit 41.8 % (37.0-47.0); Hemoglobin 13.8 g/dL (11.5-15.3); Lymphocytes # 1.5 10^3/uL (0.8-4.8); Lymphocytes % 19.6 %; Mean Corpuscular Hemoglobin 29.2 pg (28.0-34.0); Mean Corpuscular Volume 88.6 fl (81-99); Mean Platelet Volume 12.6 fL (7.4-10.4); Monocytes # 0.6 10^3/uL (0.2-0.9); Neutrophils # 5.39 10^3/uL (1.8-7.7); Neutrophils % 68.7 %; Nucleated Red Blood Cells % 0 %; Platelet Count 178 10^3/cmm (130-400); Red Blood Count 4.72 10^6/uL (4.1-5.3); White Blood Count 7.9 10^3/uL (4.0-10.0)
[2022-02-08 11:28] LABS: Urine Appearance Clear (CLEAR); Urine Color Yellow (Yellow); pH Urine 5 (5-7)
[2022-02-08 11:29] LABS: Add Urine Culture? Yes; Add Urine Microscopic? YES; Bacteria Urine 2+ /hpf; Bilirubin Urine Neg (Negative); Blood Urine Neg (Negative); Glucose Urine UA 2+ (Normal); Ketones Urine Negative (Negative); Leukocyte Esterase Urine Negative (Negative); Nitrate Urine Positive (Negative); Protein Urine Neg (Negative); Squamous Epithelial Cell Urine RARE /hpf (0-5); Urobilinogen Urine Neg (Negative); WBC Urine 0-4 /hpf (0-5)
[2022-02-08 11:45] LABS: Alanine Aminotransferase 15 U/L (0-33); Albumin Level 4.7 g/dL (3.5-5.2); Alkaline Phosphatase 112 IU/L (35-105); Anion Gap 15.8 (5-19); Aspartate Amino Transferase 15 U/L (0-32); Blood Urea Nitrogen 18 mg/dL (8-23); Calcium 10.5 mg/dL (8.5-10.5); Carbon Dioxide 22 mmol/L (22-29); Chloride 105 mmol/L (98-107); Creatinine Clr Calc Pharmacy 69.4436; Globulin 2.8 g/dL (1.3-4.6); Glucose 144 mg/dL (65-115); Osmolality Calculated 292 mOsm/kg (285-295); Potassium 3.8 mmol/L (3.5-5.1); Sodium 139 mmol/L (136-145); Total Bilirubin 0.3 mg/dL (0.15-1.2); Total Protein 7.5 g/dL (6.6-8.7)
[2022-02-12] VITALS (24 sets, daily range): BP systolic 115–161; BP diastolic 46–80; PULSE 43–62; RESP 11–22; TEMP 36.3–36.6; O2SAT 89–99
[2022-02-12] MEDS: sodium chloride 0.9% 1,000 ML 30 ML IV (09:48)
[2022-02-12] MEDS: acetaminophen 1,000 MG/100 ML PIGGYBACK 400 MG IV ×2 (09:48→16:37)
[2022-02-12] MEDS: CELEcoxib 200 mg Capsule 400 MG PO (09:51)
[2022-02-12 10:02] LABS: Glucose Point of Care 103 mg/dL (70-110)
--- NOTE | 2022-02-12 10:28 | P.HPUD_ITS ---
Surgery/Procedure H&P Update DATE OF PROCEDURE: February 12, 2022 DATE H&P PERFORMED: 02/06/22 H&P UPDATE INFORMATION: I have reviewed H&P completed within last 30 days, I have examined patient prior to procedure, No changes to prior documentation and H&P is in [facility] [place] on date indicated PREOP DIAGNOSIS: Left knee primary osteoarthritis PLANNED PROCEDURE: Operation Date: 02/12/22 10:30 Proposed Procedures p Total Knee Arthroplasty 13259/m87.08(Left) - Carolyn Balderas MD Related Problem List Diagnoses (1) Primary osteoarthritis of left knee:
--- NOTE | 2022-02-12 10:57 | P.ANESUD_ITS ---
Pre-Anesthetic Update Pre-Anesthetic Assessment: Date of Surgery/Procedure: 02/12/22 Preop Hortencia gnosis: Left knee primary osteoarthritis Proposed Procedure: Operation Date: 02/12/22 10:30 Proposed Procedures p Total Knee Arthroplasty 17295/m87.08(Right) - Carolyn Balderas MD Changes from Pre-Anesthetic Assessment: no changes in health. Last Intake: Intake Last Liquid Date 02/11/22 Last Liquid Time 00:00 Last Solid Date 02/11/22 Last Solid Time 18:00 Vitals: Temperature 97.6 F 02/12/22 09:36 Temperature Source Temporal Artery S can 02/12/22 09:36 Pulse Rate 55 L 02/12/22 09:36 Respiratory Rate 16 02/12/22 09:36 Blood Pressure 152/68 02/12/22 09:36 Blood Pressure Kristy n 96 02/12/22 09:36 Pulse Oximetry 97 02/12/22 09:36 Oxygen Delivery Me thod 02/12/22 09:36 Cardiac Studies: No Data to Display
--- NOTE | 2022-02-12 11:38 | ANES.PROC ---
Anesthesia Procedures Procedure/Date: 02/12/22 Nerve Block ^: Nerve Block 1: Main Anesthesia: spinal anesthesia block Time Out Performed: Yes Consent: requested by attending/covering physician, from patient, risks and benefits reviewed and patient agrees to proceed Nerve block location: adductor canal (left) Anesthesia monitors applied: pulse oximetry, EKG, BP cuff and oxygen Nerve block position: supine Anesthetic Used: ropivicaine 0.5% Amount of anesthesia used (mL): 20 Ultrasound used to: recognize landmarks Nerve Stimulator Used?: No Interscalene/Femoral BLK: 4 stimuplex 21 g needle used for position and inplane approach Injection: neg aspiration of heme Patient Tolerated Procedure: well Complications: none
[2022-02-12] MEDS: ceFAZolin 1,000 mg SDV 1000 MG IRRIGATION ×2 (12:15→12:23)
[2022-02-12] MEDS: vancomycin 1,000 MG SDV 1000 MG XX (12:17)
--- NOTE | 2022-02-12 12:29 | SUR.OPER ---
family updated of surgical status
--- NOTE | 2022-02-12 13:33 | SUR.OPER ---
family updated of surgical status
[2022-02-12] MEDS: fentaNYL 50 mcg/mL INJ 2mL IVP (14:27)
--- NOTE | 2022-02-12 14:27 | XRR_ITS ---
PROCEDURE INFORMATION: Exam: XR Left Knee Exam date and time: 02/12/2022 2:35 PM Age: 71 years old Clinical indication: Device placement; Joint replacement hardware; Prior surgery; Surgery date: Post-operative (0-2 days); Surgery type: Status post left total knee arthroplasty TECHNIQUE: Imaging protocol: XR Left knee. Views: 1 or 2 views. COMPARISON: CR XR knees AP WB w LT lmt ORTH 02/06/2022 10:20 AM FINDINGS: Bones/joints: Sequela of recently placed left total knee arthroplasty in expected alignment. Soft tissues: Soft tissue thickening and gas within the anterior knee with skin analisa consistent with recent surgical procedure. XR/XR knee LT 1-2V [id number] IMPRESSION: Sequela of recently placed left total knee arthroplasty in expected alignment.
--- NOTE | 2022-02-12 14:38 | P.OP_ITS ---
Operative Report Date of procedure: February 12, 2022 Pre-op diagnosis: Left knee primary osteoarthritis Post-op diagnosis: Left knee primary osteoarthritis Post-op findings: Severe degenerative osteoarthritis and obvious osteochondral defect with osteonecrosis Procedure done: Left total knee arthroplasty Implants: The [employer] total knee system with a size 4 triathlon beaded posterior stabilized femur left, a triathlon titanium tibial component size 4 beaded, a triathlon X3 posterior stabilized tibial bearing insert size 4 X 9 mm and a beaded triathlon titanium asymmetric patella size 32 x 10 mm Pathology: none sent Surgeon: Carolyn Balderas Arborer: [facility] operating room technicians Anesthesia: MAC (With spinal and supplemental block, ASA 2) Estimated blood loss (mL): 5 Tourniquet time (min): 109 (At 250 mmHg) IV fluids (mL): 1,000 Urine output (mL): 300 Complications: None Findings: Severe degenerative osteoarthritis with obvious osteochondral lesion as visualized on x-ray Condition: stable Disposition: PACU (Then return to floor for postoperative rehabilitation and pain management) Brief History: This 71-year-old woman presented with complaints of increasing and severe left knee pain. She had previously undergone arthroscopic knee surgery for a meniscal tear, and this helped with that particular complaint. Since that time, she has developed pain in the knee, and this is most consistent with osteoarthritic pain. Also, imaging demonstrates an avascular necrosis with osteochondral lesion. After discussion, the patient wished to proceed with left total knee arthroplasty. Risks and complications were discussed with her. Consents were signed and questions were answered. Procedure: The patient was brought to the operating theater, and after undergoing adequate spinal anesthesia with MAC, ASA 2, and with supplemental adductor canal block placed, the left lower extremity was prepped with Dura-Prep and draped in usual fashion following placement of a tourniquet high on the leg. The leg was then draped free. Following prepping and draping, the leg was exsanguinated, and the tourniquet was elevated to 250 mm Hg for a total tourniquet time of 109 minutes.? Prior to elevation of the tourniquet, but following exposure of the site of surgery, a surgical pause was performed. At the time of the surgical pause, we confirmed the site and side of surgery. Additionally, we confirmed the appropriate and timely administration of preoperative antibiotics, Ancef 2 g, and Transexemic acid 1 g. The availability of equipment was confirmed, and the patient's identity was verbalized as well. Following the surgical pause, an incision was made centering over the patella continuing proximally and distally as necessary to allow access to the knee joint. Dissection continued through skin and soft tissues using a scalpel. Hemostasis was obtained using electrocautery. The skin incision was followed by a median parapatellar arthrotomy. The leg was extended and the patella was everted. Following this, the leg was returned to flexed position.? The distal femur was exposed and a drill hole was made in this for placement of the distal femoral jig. The distal femoral jig was set at 5? of valgus. The distal femoral cutting block was then placed in appropriate position, and an judy wing was used to confirm an appropriate amount of distal femur would be resected.? The distal femoral resection was accomplished with 10 mm of bone being resected distally due to the patient's flexion contracture. After the distal femoral resection had been accomplished, the femur was measured and it measured a size 4 in an anterior posterior direction is in a medial lateral direction.? A size 4 femoral cutting block was placed in position after we had shifted the position 1/2 step anteriorly, and we were then able to accomplish the anterior, posterior and chamfer cuts. This jig was then removed, and the notch guide was placed in position. With the notch guide in appropriate position, the notch was excised including resection of the anterior and posterior cruciate ligaments. This notch was to allow for the posterior stabilized femoral component. At this point, the femur was prepared and attention was directed to the proximal tibia. The posterior knee retractor was placed along with medial and lateral retractors.? Further resection of the menisci was accomplished as we had better visualization. A complete meniscectomy was performed both medially and laterally with care being taken to protect the popliteus. Retractors were then placed so that the proximal tibia was well visualized. A drill hole was then made in the tibia for placement of the intramedullary guide. This guide was placed so that approximately 2 mm of bone would be resected from the medial tibial plateau, and this resulted in 4 mm resected from the lateral tibial plateau. The intramedullary guide was utilized supplemented with an extramedullary guide to assure appropriate alignment for the proximal tibial resection. The proximal tibial jig was then evaluated, pinned in position, and the proximal tibial resection was accomplished without difficulty. The jig was removed, and the pr oximal tibia was measured. It measured a size 4. We then attempted a trial reduction with a size 4 by 9 mm insert.? The knee was placed through range of motion.? There was excellent stability with excellent varus-valgus alignment with appropriate patellar tracking. Extension was noted to be full as well.? This was felt to be the appropriate size insert. There was full extension and flexion without lift off, and the rotation of the tibia was marked. Alignment was checked from the hip to the ankle, and this was noted to be appropriate as well. Attention was then directed to the patella. The patella was measured with a caliper.? We resected sufficient patella to leave approximately 14 mm of patella remaining, and this gave us sufficient cancellous bone for the cementless patella.? Measurements of the patella then indicated that a size asymmetric 32 mm x 10 mm was the appropriate patellar size. We then placed the jig to drill for the 3 pegs of the press-fit patella, and these drill holes were made without incident. A trial patella was then placed, and the knee was placed through range of motion. The patella was noted to track nicely without evidence of subluxation.? The femur was prepared for a press-fit femur by drilling 2 holes for the femoral pegs.? All trial components were subsequently removed. The tibial tray was then pinned into position, and we broached the tibia for the s tem of the tibial component.? Subsequently, 4 drill holes were made for placement of the press-fit tibia.? This was accomplished without difficulty. Care was taken to assure appropriate rotation of the tibia as well as appropriate position on the proximal tibia. The tibial tray was completely seated on the proximal tibia. Following broaching, the tibial guide was removed, and all surfaces were copiously irrigated. The surfaces were then dried and a bone plug was placed into the distal femur.? Exparel was also injected at this point. The Tritanium tibia was impacted into position.? The beaded femur was then impacted into position in a cementless fashion. The tibial insert was placed. The patella was pressed into position with a patellar clamp.? The knee was irrigated with 20 mL of Betadine and 500 mL of normal saline, and this was allowed to remain in the knee for 3-4 minutes.? The knee was then copiously irrigated and suctioned dry.? Attention was then directed to closure.? Closure was accomplished with 0 Vicryl in the fascial tissues.? Following this, a 2-0 Monocryl was used in the subcutaneous tissues, and the skin was closed with skin analisa. A sterile dressing was then placed consisting of dermabond Prineo, OpSite, ABD, sterile soft roll, and an Casey wrap. The patient was returned the Recovery Room in a satisfactory condition.? X-rays were obtained there.? The patient will be discharged to the floor for postoperative rehabilitation and pain management. Related Problem List Diagnoses (1) Primary osteoarthritis of left knee:
[2022-02-12] MEDS: ondansetron 2 mg/ML SDV 2 mL 4 MG IVP ×2 (15:16→18:12)
[2022-02-12] MEDS: TRAMadol 50 mg Tablet PO ×3 (15:21→23:14)
--- NOTE | 2022-02-12 15:30 | ANE.PACU2 ---
Inpatient post-anesthesia follow up: Airway intact: Yes Vital signs: Temperature 97.3 F Pulse Rate 45 Respiratory Rate 18 Blood Pressure 142/67 Pulse Oximetry 95 Oxygen Delivery Me thod Nasal Cannula Oxygen Flow Rate 2 Fraction of Inspir ed Oxygen Hydration adequate: Yes Nausea and vomiting: No Pain level: 2 Mental status: Baseline
[2022-02-12] MEDS: iron polysaccharide complex 150 mg Capsule PO (18:12)
[2022-02-12] MEDS: calcium carbonate 500 mg Chew Tablet 1000 MG PO (18:12)
[2022-02-12] MEDS: mupirocin oint 22 gm 1 APPLIC NASAL (18:12)
[2022-02-12] MEDS: sennosides-docusate Tablet 2 TAB PO (18:12)
[2022-02-12] MEDS: chlorhexidine gluconate 0.12% Btl 473 mL 30 ML MUCOUS MEM ×2 (18:13→21:31)
--- NOTE | 2022-02-12 19:07 | PC.NURSE ---
Patient arrived to floor from surgery around 1615. Post procedure monitoring still in progress. Neurovasculars on the L legs are within normal limits. Pain is being managed. Patient worked with PT. Tasha given. Recinos intact and clean. Will continue to monitor and give report to [facility] Paulson.
[2022-02-12 20:46] LABS: Glucose Point of Care 228 mg/dL (70-110)
[2022-02-12] MEDS: diphenhydrAMINE 25 mg Capsule PO (21:31)
[2022-02-12] MEDS: sulfamethoxazole-trimeth DS 160-800 mg Tablet 1 TAB PO (21:31)
[2022-02-12] MEDS: CELEcoxib 200 mg Capsule PO (21:31)
[2022-02-12] MEDS: trazodone 150 mg Tablet PO (21:32)
[2022-02-13] VITALS: BP 135/60; PULSE 53; RESP 17; TEMP 36.4; O2SAT 96
[2022-02-13] MEDS: acetaminophen 1,000 MG/100 ML PIGGYBACK 400 MG IV (00:38)
[2022-02-13] MEDS: TRAMadol 50 mg Tablet PO ×3 (03:19→11:14)
[2022-02-13 04:00] VITALS: BP 123/61; PULSE 48; RESP 17; TEMP 36.4; O2SAT 94
[2022-02-13 05:53] LABS: Basophils % 0.3 %; Eosinophils % 0.2 %; Hemoglobin 11.1 g/dL (11.5-15.3); Lymphocytes # 0.9 10^3/uL (0.8-4.8); Mean Corpuscular HGB Conc 32.6 g/dL (30.0-36.0); Mean Corpuscular Hemoglobin 29.2 pg (28.0-34.0); Mean Corpuscular Volume 89.5 fl (81-99); Monocytes % 8.9 %; Neutrophils # 9.05 10^3/uL (1.8-7.7); Neutrophils % 81.8 %; Nucleated Red Blood Cells % 0 %; Platelet Count 161 10^3/cmm (130-400); Red Cell Distribution Width 13.2 % (12.1-15.1); White Blood Count 11.1 10^3/uL (4.0-10.0)
[2022-02-13 05:57] LABS: Mean Platelet Volume 13.2 fL (7.4-10.4)
[2022-02-13 06:06] LABS: Anion Gap 12.5 (5-19); Blood Urea Nitrogen 17 mg/dL (8-23); Calcium 10.2 mg/dL (8.5-10.5); Carbon Dioxide 22 mmol/L (22-29); Chloride 108 mmol/L (98-107); Glucose 126 mg/dL (65-115); Osmolality Calculated 289 mOsm/kg (285-295); Potassium 4.5 mmol/L (3.5-5.1); Sodium 138 mmol/L (136-145)
[2022-02-13 07:50] VITALS: BP 126/64; PULSE 50; RESP 18; O2SAT 93
[2022-02-13 08:04] LABS: Glucose Point of Care 138 mg/dL (70-110)
[2022-02-13] MEDS: sulfamethoxazole-trimeth DS 160-800 mg Tablet 1 TAB PO (08:33)
[2022-02-13] MEDS: iron polysaccharide complex 150 mg Capsule PO (08:33)
[2022-02-13] MEDS: aspirin 325 mg EC Tablet PO (08:33)
[2022-02-13] MEDS: multivitamin therapeutic Tablet 1 TAB PO (08:33)
[2022-02-13] MEDS: calcium carbonate 500 mg Chew Tablet 1000 MG PO (08:33)
[2022-02-13] MEDS: cholecalciferol (vitamin D3) 1,000 unit Tablet 1000 UNIT PO (08:33)
[2022-02-13 08:34] VITALS: BP 126/64
[2022-02-13] MEDS: sennosides-docusate Tablet 2 TAB PO (08:34)
[2022-02-13] MEDS: losartan 50 mg Tablet 25 MG PO (08:34)
[2022-02-13] MEDS: chlorhexidine gluconate 0.12% Btl 473 mL 30 ML MUCOUS MEM (08:35)
[2022-02-13] MEDS: mupirocin oint 22 gm 1 APPLIC NASAL (08:35)
[2022-02-13] MEDS: acetaminophen 1,000 MG/100 ML PIGGYBACK 500 MG IV (08:38)
[2022-02-13] MEDS: amlodipine 5 mg Tablet PO (09:44)
[2022-02-13] MEDS: sitagliptin 100 mg Tablet PO (09:44)
[2022-02-13] MEDS: CELEcoxib 200 mg Capsule PO (09:45)
--- NOTE | 2022-02-13 10:33 | PC.CHAP ---
Pastoral Care Encounter/Spiritual Assessment Type of Contact [] Declined hl7 developer visit [] Patient/Family/Request visit [] Outpatient visit [] Follow-up visit [] Physician referral [] Code/Alert [x] Routine visit [] Staff referral [] Actively dying [] Patient sleeping [] Family support [] [] Out of room [] Palliative care [] [x] Receiving care in room [] Pre-surgical visit [] Trauma [] Long length of stay [] ICU visit [] Other: Relational/Emotional Strength [] Patient feels connected with others/family/visitors/staff [] Distress [] Loneliness/isolation [] Abandonment Spirituality of Patient [] Person of Macy [] Attends Jewish of their Macy [] Believes in Prayer [] Reads Bible or Congregational materials [] There are Spiritual issues to be addressed Account Administrator Interventions [] Prayer [] Active listening [] Non-anxious presence [] Spiritual/emotional support [] Crisis/trauma care [] Spiritual counseling [] Bereavement support [] Provided bereavement packet [] Provided Bible/devotional materials [] Provided toy/stuffed animal, coloring book to patient or family member [] Provided Communion [] Anointing/[place] [] Salvation [] Completed spiritual assessment [] Other: Impact on Illness or Injury [] Angry [] Fearful [] Anxious [] Often cries [] Exhaustion [] Unable to work [] Unable to attend yarsani [] Unable to walk/stand [] Unable to read [] Unable to drive [] Unable to eat/drink [] Unable to sleep [] Unable to be with family [] Patient intubated [] Other: Summary Time spent with patient
[2022-02-13 10:51] LABS: Glucose Point of Care 116 mg/dL (70-110)
[2022-02-13 11:52] VITALS: BP 160/75; PULSE 49; RESP 18; O2SAT 93
--- NOTE | 2022-02-13 14:41 | PM.DCS ---
Discharge Providers Date of Admission: 02/12/22 15:40 Date of Discharge: February 13, 2022 Attending Provider at Admission: Carolyn Balderas MD Attending Provider at Discharge: Carolyn Balderas MD Primary Care Provider: Naren Castle MD Diagnoses at Discharge Discharge Diagnosis (1) Primary osteoarthritis of left knee: Status: Acute (2) Status post total left knee replacement not using cement: Status: Acute Permanent problem details: Date of procedure: February 12, 2022 Diagnosis: Left knee primary osteoarthritis Post-op findings: Severe degenerative osteoarthritis and obvious osteochondral defect with osteonecrosis Procedure done: Left total knee arthroplasty Implants: The [employer] total knee system with a size 4 triathlon beaded posterior stabilized femur left, a triathlon titanium tibial component size 4 beaded, a triathlon X3 posterior stabilized tibial bearing insert size 4 X 9 mm and a beaded triathlon titanium asymmetric patella size 32 x 10 mm Reason for Visit Reason for Visit: Idiopathic aseptic necrosis of bone Brief History: This 71-year-old woman presented with complaints of increasing and severe left knee pain.? She had previously undergone arthroscopic knee surgery for a meniscal tear, and this helped with that particular complaint.? Since that time, she has developed pain in the knee, and this is most consistent with osteoarthritic pain.? Also, imaging demonstrates an avascular necrosis with osteochondral lesion.? After discussion, the patient wished to proceed with left total knee arthroplasty.? Risks and complications were discussed with her.? Consents were signed and questions were answered. Hospital Course Hospital Course This 71-year-old woman was admitted for same-day surgery. She underwent uneventful left total knee arthroplasty and was subsequently brought to the floor for postoperative observation and rehabilitation. The patient was under observation status, and on the first postoperative day, she was independent. She was being managed with oral pain medications. Plans were therefore made for her discharge to home with home health. On the day of discharge, her wound was benign. Dressing was dry and intact. There is no evidence of infection or DVT. She was neurologically intact. Physical Exam Const: COMMON NORMALS: no acute distress, average body habitus, patient oriented x3 and alert GENERAL APPEARANCE: cooperative and comfortable ORIENTATION/CONSCIOUSNESS: Yes awake HENMT: COMMON NORMALS: normocephalic and atraumatic HEAD & SCALP: normocephalic and atraumatic Eye: GENERAL EYE: appearance normal, both eyes and all related structures Chest: COMMONS NORMALS: normal inspection of the chest Resp: COMMON NORMALS: normal respiratory effort EFFORT & INSPECTION: Yes able to speak in complete sentences and Yes symmetric chest movement Extremity: LEFT LOWER EXTREMITY: Yes knee joint (Dressing dry and intact without drainage) Left knee: Yes inspection (Minimal bruising.), Yes palpation (No significant tenderness.) and Yes neurovascular exam (No evidence of DVT, neurologically intact) Neuro: COMMON NORMALS: patient oriented x3 SENSORIUM/ORIENTATION: Yes alert Psych: COMMON NORMALS: mental status grossly normal APPEARANCE: Yes grossly normal ATTITUDE: Yes calm and Yes engaged ATTENTION/CONCENTRATION: Yes attention grossly intact Skin: COMMON NORMALS: no rashes or lesions noted GENERAL SKIN EXAM: no rashes or lesions noted Urinary Catheter Management: Recinos Latex: Cath Placed During This Visit: yes, but has since been removed by the nurse Reason for Continuing Indwelling Catheter: Perioperative Use in Selected Surgeries Urinary Catheter Date of Insertion: 02/12/22 Urinary Catheter Time of Insertion: 11:40 Date Urinary Catheter Removed: 02/13/22 Time Urinary Catheter Discontinued: 06:20 Discharge Data Studies Completed and Pending Completed Studies During Hospitalization Category Date Time Status XR knee LT 1-2V [id number] Routine Exams 02/12/22 14:27 Completed Pending at discharge Category Date Time Status Pathology: Surgical [PTH] Routine Pth 02/12/22 13:37 Received Radiology Impressions Knee X-Ray 02/12/22 14:27 IMPRESSION: Sequela of recently placed left total knee arthroplasty in expected alignment. Laboratory Results WBC 11.1 10^3/uL (4.0-10.0) H 02/13/22 05:39 RBC 3.80 10^6/uL (4.1-5.3) L 02/13/22 05:39 Hgb 11.1 g/dL (11.5-15.3) L 02/13/22 05:39 Hct 34.0 % (37.0-47.0) L 02/13/22 05:39 MCV 89.5 fl (81-99) 02/13/22 05:39 MCH 29.2 pg (28.0-34.0) 02/13/22 05:39 MCHC 32.6 g/dL (30.0-36.0) 02/13/22 05:39 RDW 13.2 % (12.1-15.1) 02/13/22 05:39 Plt Count 161 10^3/cmm (130-400) 02/13/22 05:39 MPV 13.2 fL (7.4-10.4) H 02/13/22 05:39 Neut % (Auto) 81.8 % 02/13/22 05:39 Lymph % (Auto) 8.0 % 02/13/22 05:39 Grimes % (Auto) 8.9 % 02/13/22 05:39 Eos % (Auto) 0.2 % 02/13/22 05:39 Baso % (Auto) 0.3 % 02/13/22 05:39 Neut # (Auto) 9.05 10^3/uL (1.8-7.7) H 02/13/22 05:39 Lymph # (Auto) 0.9 10^3/uL (0.8-4.8) 02/13/22 05:39 [place]imes # (Auto) 1.0 10^3/uL (0.2-0.9) H 02/13/22 05:39 Eos # (Auto) 0.0 10^3/uL (0.0-0.8) 02/13/22 05:39 Baso # (Auto) 0.0 10^3/uL (0.0-0.1) 02/13/22 05:39 Nucleated RBC % (auto) 0 % 02/13/22 05:39 Nucleated RBCs # 0.0 /100WBC 02/13/22 05:39 Sodium 138 mmol/L (136-145) 02/13/22 05:39 Potassium 4.5 mmol/L (3.5-5.1) 02/13/22 05:39 Chloride 108 mmol/L (98-107) H 02/13/22 05:39 Carbon Dioxide 22 mmol/L (22-29) 02/13/22 05:39 Anion Gap 12.5 (5-19) 02/13/22 05:39 BUN 17 mg/dL (8-23) 02/13/22 05:39 Creatinine 0.9 mg/dL (0.5-0.9) 02/13/22 05:39 GFR Calculation Not Reportable 02/13/22 05:39 Glucose 126 mg/dL (65-115) H 02/13/22 05:39 POC Glucose 116 mg/dL (70-110) H 02/13/22 10:41 Calculated Osmolality 289 mOsm/kg (285-295) 02/13/22 05:39 Calcium 10.2 mg/dL (8.5-10.5) 02/13/22 05:39 Total Bilirubin 0.3 mg/dL (0.15-1.2) 02/08/22 10:37 AST 15 U/L (0-32) 02/08/22 10:37 ALT 15 U/L (0-33) 02/08/22 10:37 Alkaline Phosphatase 112 IU/L (35-105) H 02/08/22 10:37 Total Protein 7.5 g/dL (6.6-8.7) 02/08/22 10:37 Albumin 4.7 g/dL (3.5-5.2) 02/08/22 10:37 Globulin 2.8 g/dL (1.3-4.6) 02/08/22 10:37 Urine Color Yellow (Yellow) 02/08/22 10:45 Urine Appearance Clear (CLEAR) 02/08/22 10:45 Urine pH 5 (5-7) 02/08/22 10:45 Ur Specific [place] 1.030 (1.005-1.030) 02/08/22 10:45 Urine Protein Neg (Negative) 02/08/22 10:45 Urine Glucose (UA) 2+ (Normal) H 02/08/22 10:45 Urine Ketones Negative (Negative) 02/08/22 10:45 Urine Blood Neg (Negative) 02/08/22 10:45 Urine Nitrate Positive (Negative) H 02/08/22 10:45 Urine Bilirubin Neg (Negative) 02/08/22 10:45 Urine Urobilinogen Neg mg/dL (Negative) 02/08/22 10:45 Ur Leukocyte Esterase Negative (Negative) 02/08/22 10:45 Urine RBC None /hpf (0-2) 02/08/22 10:45 Urine WBC 0-4 /hpf (0-5) H 02/08/22 10:45 Ur Squamous Epith Cells Rare /hpf (0-5) 02/08/22 10:45 Amorphous Sediment Not Reportable 02/08/22 10:45 Urine Bacteria 2+ /hpf (NONE) H 02/08/22 10:45 Vitals Last Vital Signs Temp 97.5 F L 02/13/22 04:00 Pulse 49 L 02/13/22 11:52 Resp 18 02/13/22 11:52 BP 160/75 02/13/22 11:52 Pulse Ox 93 02/13/22 11:52 Discharge Plan Discharge Patient Disposition: Home Health Service Condition: Stable Prescriptions: New celecoxib 200 mg Capsule 200 mg PO Q12H 30 Days Qty: 60 0RF tramadol 50 mg Tablet 100 mg PO Q6H PRN (Reason: Mild To Moderate Pain) 7 Days Qty: 56 0RF acetaminophen 500 mg Tablet 500 mg PO Q8H 15 Days Qty: 45 0RF aspirin 325 mg Tablet,Delayed Release (Dr/Ec) 325 mg PO DAILY 30 Days Qty: 30 0RF Continued Januvia 100 mg tablet 100 mg PO DAILY 0RF glipizide 5 mg tablet 2.5 mg PO DAILY 0RF amlodipine 5 mg tablet 5 mg PO DAILY 0RF diphenhydramine HCl [Benadryl] 25 mg capsule 25 mg PO DAILY 0RF biotin 10 mg tablet 10 mg PO DAILY 0RF ergocalciferol (vitamin D2) 50 mcg (2,000 unit) capsule 50 mcg PO DAILY 0RF calcium carbonate [Calcium 600] 600 mg calcium (1,500 mg) tablet 600 mg PO DAILY 0RF valsartan [Diovan] 80 mg tablet 80 mg PO DAILY 0RF sulfamethoxazole-trimethoprim [Bactrim DS] 800-160 mg tablet 1 tab PO Q12H Qty: 20 0RF meclizine 25 mg tablet 25 mg PO QID PRN (Reason: dizziness) Qty: 30 0RF trazodone 150 mg tablet 150 mg PO BEDTIME 0RF fenofibrate 160 mg tablet 160 mg PO DAILY 0RF Discharge Orders: Discharge Order (Routine); Ordered 02/13/22 Ordered By: Carolyn Balderas Referrals: [facility] [place] [facility] ([facility]) [Outside] Carolyn Balderas MD [Physician] - 02/26/22 10:30 am (This will be for a nurse visit. You will then have an appointment with me with x-ray on March 04 at 10:15 AM) Discharge Diet: Advance as tolerated, Usual diet and Diabetic Discharge Activity: Increase activity as tolerated, Limit activity as instructed, Use walker/crutches as instructed and As per PT/OT instructions Patient Instructions: Aspirin (By mouth), Tramadol (By mouth) (Ultram, Ultram ER, [place], Theratramadol-60, Qdolo), Celecoxib (By mouth), Knee Replacement (GEN), Opioid Safety Activity Restrictions/Additional Instructions: Range of motion and strengthening to left lower extremity. Ice and elevation. Physical therapy per home then outpatient PT. You may remove your dressing down to the clear plastic, and you may shower. Discharge Attestations Time Spent in Discharge Care*: greater than 30 min Specific Discharge Activities: educating patient, educating and/or supporting family/caregiver, documenting/other paperwork and evaluating patient/reviewing data Quality Metrics Clinical Quality Measures [ No reported AMI, CVA or VTE this stay] Coding Level of Care Code Acute Chg FW DC note Diagnoses Primary osteoarthritis of left knee M17.12 Status post total left knee replacement not using cement Z96.652
[2022-02-13 16:50] VITALS: BP 160/75; PULSE 49; RESP 18; O2SAT 93
== END 2022-02-13 15:00 | disposition home health service (06) ==
LOC: MEDSURG 16:46
PROVIDERS: Admitting Provider Specialist; PCP Family Medicine; Visit Provider Specialist
PROC: (CPT 27447; principal; 2022-02-12 10:10)
DX: M17.12 Unilateral primary osteoarthritis, left knee (principal); I10 Essential (primary) hypertension; E11.9 Type 2 diabetes mellitus without complications; E78.5 Hyperlipidemia, unspecified
CPT/HCPCS: 27447; 36415; 36416; 51702; 64447; 73560; 76942; 80048; 80053; 81001; 82962; 85025; 87077; 87086; 87186; 88307; 88311; 93005; 97110; 97116; 97161; 97165; C1776; C9290; G0378; J0690; J1100; J2405; J2704; J2795; J3010; J3370; J3490; J7030

== ENCOUNTER → 2022-03-04 10:05 | Outpatient (BNVA) | payer MEDICARE, BC, SELFPAY | PROVIDERS: PCP Family Medicine; Visit Provider Specialist | DX: Z96.652 Presence of left artificial knee joint (principal) | CPT/HCPCS: 73560; 73565 ==

== ENCOUNTER 2022-03-20 06:00 | Outpatient (RCR) | payer MEDICARE, BC, SELFPAY | END 2022-03-23 23:59 | disposition home or self-care (01) | LOC: SPT 06:00 | PROVIDERS: PCP Family Medicine; Referring Provider Specialist; Visit Provider Specialist | DX: Z47.1 Aftercare following joint replacement surgery (principal); Z96.652 Presence of left artificial knee joint | CPT/HCPCS: 97161 ==

== ENCOUNTER 2022-03-24 06:00 | Outpatient (RCR) | payer MEDICARE, BC, SELFPAY | END 2022-04-18 23:59 | disposition home or self-care (01) | LOC: SPT 06:00 | PROVIDERS: PCP Family Medicine; Referring Provider Specialist; Visit Provider Specialist | DX: Z96.652 Presence of left artificial knee joint (principal) | CPT/HCPCS: 97110 ==

== ENCOUNTER → 2022-05-06 10:48 | Outpatient (BNVA) | payer MEDICARE, BC, SELFPAY | PROVIDERS: PCP Family Medicine; Visit Provider Specialist | DX: Z96.652 Presence of left artificial knee joint (principal) | CPT/HCPCS: 73560; 73565 ==

== ENCOUNTER 2022-06-13 11:10 | Outpatient (CLI) | payer MEDICARE, BC, SELFPAY ==
--- NOTE | 2022-06-13 11:15 | MM_ITS ---
WS: [id number] BILATERAL SCREENING DIGITAL BREAST TOMOSYNTHESIS MAMMOGRAM WITH CAD HISTORY: SCREEN COMPARISON: 06/07/2020 and 04/20/2014 Bilateral CC and MLO views with tomosynthesis and synthetic mammography submitted. Computer aided det ection analyzed. Breast composition: There are scattered areas of fibroglandular density. No suspicious masses, microc alcifications or architectural distortion. Benign calcifications in each breast. MM/[place] [id number] IMPRESSION: BI-RADS: 2-Benign FOLLOW UP: 1 Year Follow-up
== END 2022-06-13 11:11 | disposition home or self-care (01) ==
LOC: RAD 11:11
PROVIDERS: PCP Family Medicine; Visit Provider Family Medicine
DX: Z12.31 Encounter for screening mammogram for malignant neoplasm of breast (principal)
CPT/HCPCS: 77063; 77067

== ENCOUNTER → 2022-11-12 13:51 | Outpatient (BNVA) | payer MEDICARE, BC, SELFPAY | PROVIDERS: PCP Family Medicine; Visit Provider Family Medicine | DX: N39.0 Urinary tract infection, site not specified (principal); R30.0 Dysuria; Z51.81 Encounter for therapeutic drug level monitoring; E11.9 Type 2 diabetes mellitus without complications; R53.81 Other malaise; R53.83 Other fatigue; E53.8 Deficiency of other specified B group vitamins; E55.9 Vitamin D deficiency, unspecified; E78.5 Hyperlipidemia, unspecified; I10 Essential (primary) hypertension | CPT/HCPCS: 80053; 81000; 82306; 82607; 83036; 84443; 85025; 87077; 87086; 87184 ==

== ENCOUNTER → 2023-02-12 12:28 | Outpatient (BNVA) | payer MEDICARE, BC, SELFPAY | PROVIDERS: PCP Family Medicine; Visit Provider Family Medicine | DX: E11.9 Type 2 diabetes mellitus without complications (principal); E55.9 Vitamin D deficiency, unspecified; F41.9 Anxiety disorder, unspecified; K29.70 Gastritis, unspecified, without bleeding | CPT/HCPCS: 82306; 83036 ==

== ENCOUNTER → 2023-05-05 13:05 | Outpatient (BNVA) | payer MEDICARE, BC, SELFPAY | PROVIDERS: PCP Family Medicine; Visit Provider Specialist | DX: Z96.652 Presence of left artificial knee joint (principal); M17.12 Unilateral primary osteoarthritis, left knee | CPT/HCPCS: 73560; 73565; 99213 ==

== ENCOUNTER → 2023-08-28 08:22 | Outpatient (BNVA) | payer MEDICARE, BC, SELFPAY | PROVIDERS: PCP Family Medicine; Visit Provider Family Medicine | DX: Z51.81 Encounter for therapeutic drug level monitoring (principal); E11.9 Type 2 diabetes mellitus without complications; E55.9 Vitamin D deficiency, unspecified; E78.5 Hyperlipidemia, unspecified | CPT/HCPCS: 80053; 83036; 85025 ==

== ENCOUNTER 2023-09-10 11:08 | Outpatient (CLI) | payer MEDICARE, BC, SELFPAY ==
--- NOTE | 2023-09-10 11:21 | XRR_ITS ---
PROCEDURE INFORMATION: Exam: XR Chest Exam date and time: 09/10/2023 11:22 AM Age: 72 years old Clinical indication: Dyspnea and shortness of breath TECHNIQUE: Imaging protocol: Radiologic exam of the chest. Views: 2 views. COMPARISON: CR XR chest 1V portable [id number] 06/01/2020 4:13 AM FINDINGS: Lungs: 16 mm nodular density projecting over the peripheral left upper lobe. This was not present on the prior examination. CT is recommended for better evaluation. Pleural spaces: Unremarkable. No pleural effusion. No pneumothorax. Heart/Mediastinum: Unremarkable. No cardiomegaly. Bones/joints: Unremarkable. XR/XR chest 2V* [id number] IMPRESSION: 16 mm nodular density projecting over the peripheral left upper lobe. This was not present on prior examination. CT is recommended for better evaluation
== END 2023-09-10 11:09 | disposition home or self-care (01) ==
PROVIDERS: PCP Family Medicine; Visit Provider Family Medicine
DX: R06.00 Dyspnea, unspecified (principal)
CPT/HCPCS: 71046

== ENCOUNTER 2023-09-19 09:41 | Outpatient (CLI) | payer MEDICARE, BC, SELFPAY ==
--- NOTE | 2023-09-19 10:30 | CT_ITS ---
WS: [id number] CT chest wo con [id number] HISTORY: Lung nodule, dyspnea with exertion TECHNIQUE: Axial imaging performed through the thorax. Coronal and sagittal reformats are submitted. All CT scans at [facility] use at least one of these dose optimization techniques: automated exposure control; mA and/or kV adjustment per patient size (includes targeted exams where dose is mat ched to clinical indication); or iterative reconstruction. CONTRAST: None DLP: 512.68 mGy.cm COMPARISON: 06/14/2019, chest radiograph 09/10/2023 Lungs and central airway: Slightly spiculated solid mass in the LEFT upper lobe abuts the fissure. Ma ss measures 11 x 13 x 13 mm. No associated calcifications. There are several additional small pulmona ry nodules. 5 mm nodule RIGHT middle lobe. 5 mm nodule at the lingula. 3 mm nodule RIGHT lower lobe. Pleura: Normal. No pleural effusion. Heart and pericardium: Mild cardiomegaly. Moderate coronary artery atherosclerosis. No pericardial ef fusion. Mediastinum and shawn: No adenopathy is identified on this unenhanced exam. Small enlarged lymph nodes would be difficult to exclude without IV contrast. Vessels: Ectatic thoracic aorta with mild ectasia. Aberrant RIGHT subclavian artery. Chest wall and lower neck: No soft tissue masses. Upper abdomen: Mild hepatic steatosis. Normal size spleen. Moderate splenic artery calcification. Cys tic mass upper pole LEFT kidney with wall calcification. No adrenal mass. Osseous structures: Increase in thoracic kyphosis and scoliosis. IMPRESSION: 1. Spiculated solid nodule LEFT upper lobe abutting the fissure. Nodule measures 11 x 13 x 13 mm. Pul monary neoplasm needs to be excluded. This does correspond to the radiographic abnormality recently d escribed. 2. There are additional very small, noncalcified pulmonary nodules as described above. The largest ad ditional nodules are 5 mm in the lingula and RIGHT middle lobe. 3. No adenopathy identified on this unenhanced exam. 4. No adrenal mass. 5. Complex LEFT renal cyst. Wall calcification associated with this cyst. Stable since 06/14/2019. 6. Aberrant RIGHT subclavian artery. 7. Mild cardiomegaly.
== END 2023-09-19 09:42 | disposition home or self-care (01) ==
LOC: RAD 09:41
PROVIDERS: PCP Family Medicine; Visit Provider Family Medicine
DX: R91.8 Other nonspecific abnormal finding of lung field (principal); R06.00 Dyspnea, unspecified; I51.7 Cardiomegaly
CPT/HCPCS: 71250; 85379

== ENCOUNTER → 2023-10-07 13:50 | Outpatient (BNVA) | payer MEDICARE, BC, SELFPAY | PROVIDERS: PCP Family Medicine; Referring Provider Family Medicine; Visit Provider Internal Medicine Pulmonary Disease | DX: J30.2 Other seasonal allergic rhinitis (principal); R91.8 Other nonspecific abnormal finding of lung field; R06.00 Dyspnea, unspecified; Z77.22 Contact with and (suspected) exposure to environmental tobacco smoke (acute) (chronic) | CPT/HCPCS: 36415; 82785; 86003; 99204 ==

== ENCOUNTER 2023-10-14 13:42 | Outpatient (CLI) | payer MEDICARE, BC, SELFPAY ==
--- NOTE | 2023-10-14 10:00 | PETR_ITS ---
PROCEDURE INFORMATION: Exam: PET/CT Skull Base to Mid-thigh Exam date and time: 10/14/2023 10:44 AM Age: 72 years old Clinical indication: Abnormal findings; 1. Spiculated solid nodule left upper lobe abutting the fissure. Nodule measures 11 x 13 x 13 mm. Pulmonary neoplasm needs to be excluded. This does correspond to the radiographic abnormality. Recently described. ; Additional info: Spiculated nodule in left lung, nodule not amenable to CT guided biopsy. Needing to get pet LABS AND CLINICAL REPORTS: Glucose: 162 mg/dl Treatment strategy for malignancy (PET staging): Initial Staging (PI) TECHNIQUE: Imaging protocol: Following at least four-hour fasting and following the injection of radiopharmaceutical, low dose CT images were obtained. Then, PET images were obtained. Attenuation corrected images were constructed using the CT scan. Fused images of PET and CT were reviewed. The standardized uptake values (SUV) reported below are maximum values within a region of interest, expressed in gm/ml. Exam includes orbital meatal line to mid-thigh. Radiopharmaceutical: 13.1 mCi F-18 FDG (Fluorodeoxyglucose), IV. Time of imaging post radiopharmaceutical administration: 1 hour Injection site: Right AC COMPARISON: CT chest wo con [id number] 09/19/2023 9:49 AM FINDINGS: Brain: Visualized brain has normal physiologic uptake. Pharynx: No abnormal uptake. Physiologic uptake. Larynx: No abnormal uptake. Physiologic uptake. Lungs, pleura and trachea: Hypermetabolic 1.8 x 1.5 cm left upper lobe lesion with maximum SUV 5.8 axial image 74. Heart: Normal physiologic uptake. Mediastinal space: No abnormal uptake. Liver: No abnormal uptake. Probable mild hepatic steatosis. Gallbladder and bile ducts: No abnormal uptake. Pancreas: No abnormal uptake. Spleen: No abnormal uptake. Adrenal glands: No abnormal uptake. Kidneys and ureters: Normal physiologic uptake. Unchanged left renal cyst. Stomach and bowel: No abnormal uptake. Vasculature: No abnormal uptake. Aberrant right subclavian artery. Lymph nodes: Focal uptake in the left hilar region with maximum SUV 3.7 on axial image 76. Underlying presumed node is not well delineated without contrast. Bones/joints: No abnormal uptake in the visualized axial and appendicular skeleton. Soft tissues: No abnormal uptake in the visualized head, neck, chest, abdomen, pelvis, and extremities. PET/PET skulltothigh INITIAL 90618 IMPRESSION: Hypermetabolic left upper lobe lesion and suspect hypermetabolic left hilar lymph node. No suspicious contralateral findings.
== END 2023-10-14 13:43 | disposition home or self-care (01) ==
LOC: RAD 13:42
PROVIDERS: PCP Family Medicine; Visit Provider Family Medicine
DX: R91.1 Solitary pulmonary nodule (principal)
CPT/HCPCS: 78815; A9552

== ENCOUNTER 2023-10-20 05:45 | Day surgery (SDC) | payer MEDICARE, BC, SELFPAY ==
[2023-10-20] VITALS (10 sets, daily range): BP systolic 104–181; BP diastolic 47–98; PULSE 61–79; RESP 12–18; TEMP 36.1–36.4; O2SAT 90–96; BMI 34.3
--- NOTE | 2023-10-20 06:01 | CT_ITS ---
WS: [id number] NONCONTRAST CT CHEST HISTORY: lung biopsy. Lung mass. Prior bronchoscopy. DLP: Not provided. All CT scans at [facility] use at least one of these dose optimization techniques: automated e xposure control; mA and/or kV adjustment per patient size (includes targeted exams where dose is matc hed to clinical indication); or iterative reconstruction. CT imaging of 0. 0.5 mm is performed through the thorax with arms up and arms down prior to bronchosc opy for navigation purposes. Imaging will be used for guidance during bronchoscopy. Slightly spiculated solid nodule LEFT upper lobe is reidentified abutting the LEFT fissure. Nodule me asures 13 x 15 mm without significant increase in size. Lungs are hyperexpanded. There are few additi onal nodules as described on the prior examination. Mild atherosclerosis aorta. Pulmonary artery size is mildly prominent. Small mediastinal and hilar ly mph nodes. Aberrant RIGHT subclavian artery. RIGHT subclavian artery passes posterior to the esophagu s. Moderate coronary artery calcification. Mild cardiomegaly. Heavy calcification in the splenic abe ry. Incompletely visualized well-circumscribed mass upper pole LEFT kidney. And Hounsfield severity l ow suggesting this is a cyst. There is calcification in the wall of the cyst. No adrenal mass. IMPRESSION: CT thorax provided for navigational purpose during bronchoscopy. LEFT upper lobe spiculated 13 x 15 mm nodule.
[2023-10-20] MEDS: sodium chloride 0.9% 1,000 ML 30 ML IV (06:36)
--- NOTE | 2023-10-20 06:55 | ANES.PREANE2 ---
Pre-Anesthetic Assessment Height/Weight: Height 1.63 m Weight 90.718 kg Temp Pulse Resp BP Pulse Ox O2 Del Method 97.0 F L 68 16 181/83 95 Room Air 10/20/23 06:36 10/20/23 06:36 10/20/23 06:36 10/20/23 06:36 10/20/23 06:36 10/20/23 06:36 Operation Date: 10/20/23 07:00 Proposed Procedures p ON, EBUS, 93651, 21044, 05110, 99185, 89033, 93305, 64976, 11880, 40972, 89960, 41008, 15187, 76105, 74834,R91.8(Not Applicable) - Sukhi Rudd MD s Ebus(Not Applicable) - Sukhi Rudd MD Familial anesthetic complications: None Was Beta Maggie taken within 24 hours: N/A Was Clonidine taken within 24 hours: N/A Last intake: Intake Last Liquid Date 10/19/23 Last Liquid Time 23:00 Last Solid Date 10/19/23 Last Solid Time 23:00 Social No alcohol and No tobacco Exam alert, oriented x 3, clear to auscultation bilaterally and regular rate & rhythm Airway Mallampati: Class I Dentition: chipped CV/HEM Arrythmia and Hypertension Metabolic Diabetes Mellitus and Hyperlipidemia Anesthetic Plan ASA status: 3 Anesthesia: General Risk of > 500 ml blood loss (7ml/kg in children): No Medications/Allergies Home Medications Medication Instructions Recorded Confirmed Last Taken Type meclizine 25 mg tablet 25 mg PO QID PRN dizziness #30 tabs 06/01/20 10/20/23 1 Month Ago Rx ~09/19/23 ergocalciferol (vitamin D2) 50 mcg 50 mcg PO BID #180 caps 12/12/22 10/20/23 10/18/23 Rx (2,000 unit) capsule omeprazole 40 mg capsule,delayed 40 mg PO DAILY #90 caps 12/12/22 10/20/23 10/19/23 Rx release ondansetron HCl 4 mg tablet 4 mg PO Q8H PRN nausea and 12/12/22 10/20/23 6 Months Ago Rx vomiting #60 tabs ~04/19/23 sertraline 100 mg tablet 100 mg PO DAILY #90 tabs 01/10/20/23 10/18/23 Rx valsartan 160 mg tablet 160 mg PO DAILY #90 tabs 12/12/22 10/20/23 10/18/23 Rx biotin 1 mg capsule 1 mg PO DAILY 09/08/23 10/20/23 10/18/23 History melatonin 3 mg capsule 3 mg PO DAILY 09/08/23 10/20/23 10/18/23 History albuterol sulfate 90 mcg/actuation 2 inh inhalation QID PRN shortness 10/07/23 10/20/23 10/19/23 Rx aerosol inhaler of breath or wheezing #8.5 grams budesonide-formoterol HFA 80 2 puff inhalation BID #10.2 grams 10/07/23 10/20/23 10/19/23 Rx mcg-4.5 mcg/actuation aerosol inhaler (Symbicort) amlodipine 2.5 mg tablet 7.5 mg PO DAILY 10/17/23 10/20/23 10/20/23 History dulaglutide 0.75 mg/0.5 mL 0.75 mg SUBCUT DIRECTED 10/17/23 10/20/23 10/11/23 History subcutaneous pen injector (Trulicity) sitagliptin phosphate 100 mg 100 mg PO DAILY 10/17/23 10/20/23 10/19/23 History tablet (Januvia) Allergies Allergy/AdvReac Type Severity Reaction Status Date / Time codeine Allergy ADR-Nausea Verified 10/20/23 06:31 Current Medications Generic Name Dose Route Start Last Admin Trade Name Freq PRN Reason Stop Dose Admin Sodium Chloride 1,000 mls @ 30 mls/hr 10/20/23 06:15 10/20/23 06:36 Sodium Chloride 0.9% IV 10/21/23 06:14 30 mls/hr .Q24H MARIANO Administration PFSH Anesthesia Medical History Benign essential HTN Bradycardia Depression Diabetes Dyslipidemia Glaucoma Labyrinthitis Osteoporosis Syncope and collapse The EKG from 06/01/2020 revealed sinus rhythm, minimal left axis deviation, minimal voltage criteria for LVH and some nonspecific T wave changes. T2DM (type 2 diabetes mellitus) Surgical History H/O hysterectomy with oophorectomy Hx of appendectomy Hx of cataract removal with insertion of prosthetic lens Family History Other Hypertension Postsurgical cardiac pacemaker in situ Stroke Social History Smoking and tobacco/nicotine status: never used tobacco/nicotine Alcohol intake: never Substance/Drug Use: never Data Anesthesia Cardiac Studies: No Data to Display
--- NOTE | 2023-10-20 07:03 | W.PM.OPSUD ---
Surgery/Procedure H&P Update DATE OF PROCEDURE: October 20, 2023 DATE H&P PERFORMED: 10/07/23 H&P UPDATE INFORMATION: I have reviewed H&P completed within last 30 days, I have examined patient prior to procedure and Changes to prior documentation as noted here PREOP DIAGNOSIS: suspected malignancy PRIMARY INDICATION FOR PROCEDURE: pt has left upper lobe spicultated nodule seen on CT chest 09/19/23 PET/CT 10/14/23: Hypermetabolic left upper lobe lesion and suspect hypermetabolic left hilar lymph node.? No suspicious contralateral findings. today scheduled for navigational bronchoscopy guided biopsy of left upper lobe nodule and EBUS guided biopsies of left hilar and mediastinal lymph nodes. PLANNED PROCEDURE: Operation Date: 10/20/23 07:00 Proposed Procedures p ON, EBUS, 25585, 65836, 65888, 81018, 48388, 41912, 18108, 59016, 89760, 05316, 08186, 30108, 20856, 23439,R91.8(Not Applicable) - Sukhi Rudd MD s Ebus(Not Applicable) - Sukhi Rudd MD
--- NOTE | 2023-10-20 07:12 | SC_ITS ---
WS: [id number] C-ARM RADIOGRAPHS CHEST; 4 IMAGES HISTORY: ion COMPARISON: None available. Intraprocedural imaging during navigational bronchoscopy for biopsy LEFT upper lobe mass. IMPRESSION: Intraprocedural imaging for navigational bronchoscopy.
[2023-10-20] MEDS: lidocaine 1% INJ 10 mL (per mL) XX (07:28)
[2023-10-20 08:12] LABS: Glucose Point of Care 156 mg/dL (70-110)
--- NOTE | 2023-10-20 08:39 | XR_ITS ---
WS: [id number] PORTABLE CHEST HISTORY: post ion/ebus COMPARISON: 09/10/2023 Mild hazy attenuation throughout both lungs is probably based on the portable technique and patient's body habitus. Previously described LEFT upper lobe nodule is not as well visualized radiographically . No pleural effusion or pneumothorax. Cardiac size: Mildly enlarged cardiac silhouette. Mediastinum/Aorta: Mild atherosclerosis aorta. No osseous abnormality seen. IMPRESSION: No pneumothorax status post ion LEFT upper lobe mass biopsy.
--- NOTE | 2023-10-20 08:50 | PM.OP ---
Operative Report Date of procedure: October 20, 2023 Pre-op diagnosis: Suspected lung malignancy Procedure done: 10906 Dx Bronchoscope w/Washings or airway inspection 48941 Bx Bronchoscope w/Brushings or protected brushings 49742 Dx Bronchoscope w/BAL 16871 Bronch with computer image guided Navigational Bronchoscopy 67846 Bronchoscopy w/Transbronchial lung biopsy(s), single lobe 51827 Bronchoscopy w/Transbronchial needle aspiration biopsy(s), tracheal, main stem, and/or lobar bronchus 14108 Bronchoscopy w/ therapeutic aspiration of the tracheobronchial tree (clearance of airway secretions, removal of mucus plugs) 38517 EBUS Sampling 3 nodes 48565 EBUS Diag or Interven Peripheral lesion (radial EBUS) Surgeon: Sukhi Rudd MD Brief History: Ms. Betty Mead referred by Dr. Castle for pulmonary nodule. Patient was complaining of dyspnea on exertion and had a chest x-ray 09/10/2023 which showed 16 mm nodular density projecting peripheral left upper lobe. Subsequent chest CT scan 09/19/2023 showed spiculated solid left upper lobe nodule abutting the fissure. Nodule measures 11 x 13 x 13 mm. This lesion looks suspicious for malignancy. There are other small noncalcified pulmonary nodules largest being 5 mm in lingula and right middle lobe. There is no obvious lymphadenopathy. Subsequent PET/CT 10/14/23: Hypermetabolic left upper lobe lesion and suspect hypermetabolic left hilar lymph node.? No suspicious contralateral findings. Patient herself was a never smoker but reported having significant second hand smoke exposure She complained having sob on exertion; spells of coughs used inhalers previously. She was on lisinopril previously which was discontinued and her cough improved slightly. She denied any weight loss, palpitations, chest pains, hemoptysis, Today scheduled for navigational bronchoscopy guided biopsy of left upper lobe lesion as well as endobronchial ultrasound-guided surveillance and biopsy of hilar and mediastinal lymph nodes. Procedure: 67758 Dx Bronchoscope w/Washings or airway inspection 39177 Bx Bronchoscope w/Brushings or protected brushings 38130 Dx Bronchoscope w/BAL 18222 Bronch with computer image guided Navigational Bronchoscopy 84873 Bronchoscopy w/Transbronchial lung biopsy(s), single lobe 64372 Bronchoscopy w/Transbronchial needle aspiration biopsy(s), tracheal, main stem, and/or lobar bronchus 16213 Bronchoscopy w/ therapeutic aspiration of the tracheobronchial tree (clearance of airway secretions, removal of mucus plugs) 35520 EBUS Sampling 3 nodes 18824 EBUS Diag or Interven Peripheral lesion (radial EBUS) Indication: Description of the procedure: The procedure was explained to the patient and the consent was obtained. The patient was brought to the OR. Anesthesia: The patient underwent endotracheal intubation for general anesthesia. Local anesthesia: The distal trachea-Terry, right and left mainstem bronchi were anesthetized with 1% lidocaine, 3 mL. Following induction of general anesthesia, the flexible bronchoscope was advanced through the ET tube. The lower trachea mucosa appeared normal, no endotracheal lesion was seen. The terry was sharp. The terry, the right and left mainstem bronchi are anesthetized with 1% lidocaine. In a systematic manner bilateral bronchial tree was then examined. The bronchoscope was then introduced into the right mainstem bronchus. The right upper lobe, right middle lobe and right lower lobe bronchi were examined up to the third subsegmental level and no abnormalities were identified.Mucosa appeared normal with no endobronchial lesion, active bleeding or mucous plug.There were significant clear as well as some mucus secretions which were suctioned right away.(88807). The bronchoscope was advanced into the left mainstem bronchus. The mucosa appeared normal with no endobronchial lesions. The left upper lobe, lingula and left lower lobe bronchi were examined up to the third subsegmental level and no abnormalities were identified. Mucosa appeared normal with no endobronchial lesion, active bleeding or mucous plug. There were some mucus secretions in left lower lobe-which were suctioned right away.(96054) After initial inspection as well as airway clearance with flexible bronchoscope(63350), ION robotic assisted navigational bronchoscope (31520) was introduced-and left upper lobe lesion was accessed. After confirming the location with radial EBUS (69464) with good concentric signal; under the fluoroscopy guidance -we were able to obtain biopsies using fine-needle, and forceps.There was some evidence of grade 2 bleeding-cold saline was instilled. BAL was also taken from left upper lobe segment. After making sure there is no active bleeding navigational bronchoscope was retracted and introduced Endobronchial ultrasound EBUS (93496). With the help of EBUS, identified lymph nodes at station 11 R, station 7, station 11 L. Fine-needle aspiration biopsies were taken from lymph nodes at station 11R, station 7, station 11 L, (50651) After taking the biopsies EBUS retracted-diagnostic bronchoscope was introduced to check for any evidence of active bleeding. There was some evidence of bleeding-controlled with instillation of cold saline and diluted epinephrine. After making sure there is no active bleeding bronchoscope was retracted and procedure terminated. Samples: A. Left upper lobe lesion 1. Total of 3 passes were made using needle aspiration(29017); we do not have onsite pathology and so all the material was placed in formalin for histopathology 2. Targeting the same area 4 passes were made using forceps (66754); we do not have onsite pathology and so all the material was placed in formalin for histopathology 3. Bronchoscope was wedged at the entrance of the anterior segment of left upper lobe, 10 mL of saline was instilled and returned 6 mL of bronchoalveolar lavage (19414). The fluid was mixed with blood and specks of tissue. Samples for cell count, cytology, cultures B. EBUS guided Fine-needle aspiration biopsies were taken from station 11R, station 7; station 11 L (94531) 1. Total of 3 passes were made using needle aspiration(32214) from station 11R; all the material was placed in formalin and sent for histopathology 2. Total of 3 passes were made using needle aspiration(72281) from station 7: all the material was placed in formalin and sent for histopathology 3. Total of 3 passes were made using needle aspiration(37051) from station 11 L; all the material was placed in formalin and sent for histopathology Complications: None.The patient was extubated and brought to the PACU in stable condition. Postprocedure chest x-ray: There is no evidence of pneumothorax Disposition: Patient can be discharged home in stable condition. Pt, and her son are aware that I am going to call them to update final biopsy results once available. Related Problem List Diagnoses (1) Lung nodule:
[2023-10-20 09:40] LABS: Cyto Order Verification Order Verified
--- NOTE | 2023-10-20 10:24 | XR_ITS ---
WS: [id number] PORTABLE CHEST HISTORY: repeat chest xray post ion, interm. low sp02 COMPARISON: Study earlier the same day. No pneumothorax. No interval change in appearance of the lungs. Nodule in the central RIGHT lung identified measuring 1.5 cm. No associated pneumothorax or hemorrhag e. No pleural effusion or pneumothorax. Cardiac size: Normal. Mediastinum/Aorta: Mild atherosclerosis aorta. No osseous abnormality seen. IMPRESSION: No pneumothorax status post thoracentesis.
--- NOTE | 2023-10-20 10:28 | PC.NURSE ---
Pt doing well in phase 2, denies shortness of breath or chest pain. Coughing has slowed down. Sp02 will intermittently drop to 88% on RA. Will return to 90-92% with cough and deep breathing. Lungs clear per auscultation. Datanelida updated via telephone and ordered another chest xray.
--- NOTE | 2023-10-20 10:40 | ANE.PACU2 ---
Inpatient post-anesthesia follow up: Airway intact: Yes Vital signs: Temperature 97.4 F Pulse Rate 71 Respiratory Rate 18 Blood Pressure 114/62 Pulse Oximetry 90 Oxygen Delivery Me thod Room Air Oxygen Flow Rate Fraction of Inspir ed Oxygen Hydration adequate: Yes Nausea and vomiting: No Pain level: 1 Mental status: Baseline
[2023-10-20 11:12] LABS: Apprearance, Bronch Wash Hazy (CLEAR); Color, Bronc Wash Red; Total Cells Counted Bronch 501
[2023-10-20 11:13] LABS: PATH Referral Yes
[2023-10-24 09:42] LABS: PD-L1 (Clone 22C3) by IHC BBPL See Report
== END 2023-10-20 10:48 | disposition home or self-care (01) ==
PROVIDERS: PCP Family Medicine; Visit Provider Internal Medicine Pulmonary Disease
PROC: 0BJ08ZZ Inspection of Tracheobronchial Tree, Via Natural or Artificial Opening Endoscopic (ICD-10-PCS; CPT 31622; principal; 2023-10-20 07:00)
PROC: BB4BZZZ Ultrasonography of Pleura (ICD-10-PCS; 2023-10-20 07:00)
DX: C34.12 Malignant neoplasm of upper lobe, left bronchus or lung (principal); I10 Essential (primary) hypertension; E11.9 Type 2 diabetes mellitus without complications; E78.5 Hyperlipidemia, unspecified; M81.0 Age-related osteoporosis without current pathological fracture
CPT/HCPCS: 31623; 31624; 31627; 31628; 31629; 31645; 31653; 31654; 36416; 71045; 71250; 76000; 80503; 82962; 87070; 87205; 88112; 88305; 88341; 88342; 89050; J1100; J2371; J2405; J2704; J3010; J3490; J7030

== ENCOUNTER → 2023-10-28 13:16 | Outpatient (BNVA) | payer MEDICARE, BC, SELFPAY | PROVIDERS: PCP Family Medicine; Visit Provider Internal Medicine Pulmonary Disease | DX: J82.83 Eosinophilic asthma (principal); C34.92 Malignant neoplasm of unspecified part of left bronchus or lung; Z77.22 Contact with and (suspected) exposure to environmental tobacco smoke (acute) (chronic); R91.8 Other nonspecific abnormal finding of lung field | CPT/HCPCS: 99214 ==

== ENCOUNTER → 2023-10-31 09:33 | Outpatient (BNVA) | payer MEDICARE, BC, SELFPAY | PROVIDERS: PCP Family Medicine; Visit Provider Surgery | DX: C34.92 Malignant neoplasm of unspecified part of left bronchus or lung (principal); Z95.828 Presence of other vascular implants and grafts | CPT/HCPCS: 99204 ==

== ENCOUNTER 2023-11-04 11:18 | Outpatient (CLI) | payer MEDICARE, BC, SELFPAY | END 2023-11-04 11:19 | disposition home or self-care (01) | LOC: RT 11:19 | PROVIDERS: PCP Family Medicine; Visit Provider Internal Medicine Pulmonary Disease | DX: J82.83 Eosinophilic asthma (principal); R91.1 Solitary pulmonary nodule; R06.00 Dyspnea, unspecified | CPT/HCPCS: 94010; 94618; 94726; 94729 ==

== ENCOUNTER 2023-11-06 10:33 | Day surgery (SDC) | payer MEDICARE, BC, SELFPAY ==
[2023-11-06] VITALS (9 sets, daily range): BP systolic 87–165; BP diastolic 61–94; PULSE 56–79; RESP 14–17; TEMP 36.2–36.5; O2SAT 92–98; BMI 34.3
--- NOTE | 2023-11-06 10:27 | W.PM.OPSUD ---
Surgery/Procedure H&P Update DATE OF PROCEDURE: November 06, 2023 DATE H&P PERFORMED: 10/07/23 H&P UPDATE INFORMATION: I have reviewed H&P completed within last 30 days, I have examined patient prior to procedure, No changes to prior documentation and H&P is in [facility] EMR on date indicated PLANNED PROCEDURE: Operation Date: 11/06/23 12:00 Proposed Procedures p 14731 port placement C34.92(Not Applicable) - Clarence Valentine MD
--- NOTE | 2023-11-06 10:32 | SC_ITS ---
WS: [id number] Infusion port insertion, C-arm fluoroscopy, 11/06/2023 Clinical Data: Port placement Comparison: Portable chest, 10/20/2023 Findings: Dr. Valentine inserted at an infusion port via the right internal jugular vein. It ends at the caval atrial junction. Impression: Insertion of right infusion catheter.
[2023-11-06 11:16] LABS: Glucose Point of Care 136 mg/dL (70-110)
[2023-11-06] MEDS: sodium chloride 0.9% 1,000 ML 30 ML IV (11:17)
--- NOTE | 2023-11-06 12:08 | ANES.PAUD2 ---
Pre-Anesthetic Update Pre-Anesthetic Assessment: Date of Surgery/Procedure: 11/06/23 Proposed Procedure: Operation Date: 11/06/23 12:00 Proposed Procedures p 79813 port placement C34.92(Not Applicable) - Clarence Valentine MD Any changes to Pre-Anesthetic Assessment?: No Last Intake: Intake Last Liquid Date 11/05/23 Last Liquid Time 18:00 Last Solid Date 11/05/23 Last Solid Time 18:00 Vitals: Temperature 97.1 F L 11/06/23 10:54 Temperature Source Temporal Artery S can 11/06/23 10:54 Pulse Rate 59 L 11/06/23 10:54 Respiratory Rate 17 11/06/23 10:54 Blood Pressure 158/94 11/06/23 10:54 Blood Pressure Kristy n 115 11/06/23 10:54 Pulse Oximetry 97 11/06/23 10:54 Oxygen Delivery Me thod Room Air 11/06/23 10:55 Exam: Pre-Anes Outpt Exam: alert, oriented x 3, clear to auscultation bilaterally and regular rate & rhythm Cardiac Studies: No Data to Display
[2023-11-06] MEDS: ceFAZolin 2,000 MG in sodium chloride 0.9% (plus) 50 ML 100 MG IV (12:17)
[2023-11-06] MEDS: heparin, porcine 1,000 unit/mL INJ 10 mL 6000 UNIT IRRIGATION (12:42)
[2023-11-06] MEDS: lidocaine-epi 1% 20 mL INJ INJECTION (12:43)
--- NOTE | 2023-11-06 13:00 | P.OP_ITS ---
Operative Report Date of procedure: November 06, 2023 Pre-op diagnosis: Lung cancer Post-op diagnosis: Same Post-op findings: Normal vascular anatomy Procedure done: Insertion of right IJ Port-A-Cath Implants: Bard Port-A-Cath Surgeon: Clarence Valentine MD School Bus Driver: FREDY OR Staff Estimated blood loss: 5 Complications: None Brief History: This is a 72-year-old female with lung cancer who requires chemotherapy, I have been requested to place a Port-A-Cath. After discussion of all the risk and benefits as documented in my preop note we decided to proceed. Procedure: Patient was brought into the OR. She was placed in a supine position. Mother anesthesia sedation was given. The right neck and chest was prepped and draped in the usual sterile fashion. Timeout was conducted. I then used ultrasound to localize the right IJ vein and infiltrated local anesthesia on top of the vein. I then cannulated the vein using an 18-gauge needle under direct ultrasound visualization. A wire was advanced into the vein and position was verified with both ultrasound and fluoroscopy. The needle was removed and the wire was clamped to the drapes. I then placed my attention to the right upper chest where I made a 4 cm incision, the incision was deepened to subcutaneous tissue and then a subcutaneous pocket was created to house the Port-A-Cath. Hemostasis was achieved. I then used hemostat to create a small tunnel from the chest wound to the area of the wire insertion site at the level of the neck. I then made A 0.5 cm incision at the level of the wire insertion site in the neck. The Port-A-Cath was placed in the pocket and the catheter was tunneled using the provided tunneler from the chest wound to the neck wound I then cut the catheter to length under direct fluoroscopy guidance. A peel-off sheath and introducer were then advanced over the wire under direct fluoroscopic guidance, the introducer and the wire were then removed and the catheter was advanced through the peel-off sheath. The peel-off sheath was removed leaving the catheter in place. Position was verified with fluoroscopy. The catheter was functioning well drawing back blood and flushing. I then hep-locked the catheter. Final fluoroscopy imaging was obtained showing adequate position of the catheter. I then closed the wound in layers using #3-0 Vicryl for the subcutaneous tissue and #4 Monocryl for the skin. Dermabond was applied. At the end of the procedure all counts were correct, the patient tolerated well the procedure and was transferred to the PACU in stable condition.
[2023-11-06] MEDS: meloxicam 7.5 mg tablet (14:16)
== END 2023-11-06 14:30 | disposition home or self-care (01) ==
PROVIDERS: Family Provider Nurse Practitioner Family; PCP Family Medicine; Visit Provider Surgery
PROC: (CPT 36561; principal; 2023-11-06 12:00)
DX: C34.90 Malignant neoplasm of unspecified part of unspecified bronchus or lung (principal); Z77.22 Contact with and (suspected) exposure to environmental tobacco smoke (acute) (chronic); I10 Essential (primary) hypertension; F32.A Depression, unspecified; E11.9 Type 2 diabetes mellitus without complications; E78.5 Hyperlipidemia, unspecified; M81.0 Age-related osteoporosis without current pathological fracture; T78.40XA Allergy, unspecified, initial encounter
CPT/HCPCS: 36561; 36416; 76000; 77001; 82962; C1788; J0690; J1644; J2704; J3010; J7030

== ENCOUNTER 2023-11-13 07:30 | Oncology outpatient (recurring) (ONCR) | payer MEDICARE, BC, SELFPAY ==
[2023-10-29 09:57] LABS: Basophils # 0.1 10^3/uL (0.0-0.1); Basophils % 0.7 %; Eosinophils # 0.3 10^3/uL (0.0-0.8); Eosinophils % 3.6 %; Hematocrit 42.4 % (36-47); Lymphocytes # 1.5 10^3/uL (0.8-4.8); Lymphocytes % 16.7 %; Mean Corpuscular Hemoglobin 29.1 pg (27-33); Mean Corpuscular Volume 88.1 fl (85-98); Mean Platelet Volume 12.8 fL (7.4-10.4); Monocytes # 0.7 10^3/uL (0.2-0.9); Monocytes % 7.4 %; Neutrophils # 6.24 10^3/uL (1.8-7.7); Neutrophils % 69.9 %; Nucleated Red Blood Cells % 0 %; Platelet Count 155 10^3/cmm (157-399); Red Blood Count 4.81 10^6/uL (3.85-5.65); Red Cell Distribution Width 13.5 % (12.1-15.1); White Blood Count 8.92 10^3/uL (3.29-11.43)
[2023-10-29 10:12] LABS: Alanine Aminotransferase 25 U/L (0-33); Albumin Level 4.3 g/dL (3.5-5.2); Alkaline Phosphatase 174 U/L (35-105); Anion Gap 16.1 (5-19); Aspartate Amino Transferase 28 U/L (0-32); Blood Urea Nitrogen 13 mg/dL (8-23); Calcium 9.6 mg/dL (8.5-10.5); Carbon Dioxide 22 mmol/L (22-29); Chloride 106 mmol/L (98-107); Globulin 2.7 g/dL (1.3-4.6); Glucose 169 mg/dL (65-115); Osmolality Calculated 294 mOsm/kg (285-295); Potassium 4.1 mmol/L (3.5-5.1); Sodium 140 mmol/L (136-145); Total Bilirubin 0.5 mg/dL (0.15-1.2)
[2023-10-29 10:49] LABS: Hepatitis A Antibody IgM Non-Reactive (Nonreactive); Hepatitis B Core AB, Total Non-Reactive (Nonreactive); Hepatitis B Surface AB < 3.5 (11.5-1000); Hepatitis B Surface Antigen Non-Reactive (Nonreactive); Hepatitis C Virus Antibody Non-Reactive (Nonreactive)
[2023-10-31 09:40] LABS: Bilirubin Urine 1+ (Negative); Blood Urine 2+ (Negative); Glucose Urine UA Norm (Normal); Ketones Urine Negative (Negative); Nitrate Urine Positive (Negative); Protein Urine 1+ (Negative); Urine Appearance Cloudy (CLEAR); Urine Color Yellow (Yellow); Urobilinogen Urine 1 mg/dL (Negative); pH Urine 5 (5-7)
[2023-10-31 09:41] LABS: Add Urine Microscopic? YES; Leukocyte Esterase Urine 2+ (Negative)
[2023-10-31 09:46] LABS: Add Urine Culture? Yes; Bacteria Urine 2+ /hpf; RBC Urine 0-4 /hpf (0-2); Squamous Epithelial Cell Urine 0-4 /hpf (0-5)
[2023-11-13 08:03] VITALS: BP 187/69; PULSE 64; TEMP 36.9; O2SAT 97
[2023-11-13 08:11] LABS: Basophils % 0.2 %; Eosinophils % 0.3 %; Hematocrit 39.1 % (36-47); Lymphocytes # 1.4 10^3/uL (0.8-4.8); Lymphocytes % 14.3 %; Mean Corpuscular HGB Conc 34.5 g/dL (30-55); Mean Corpuscular Hemoglobin 29.6 pg (27-33); Mean Corpuscular Volume 85.7 fl (85-98); Mean Platelet Volume 12.3 fL (7.4-10.4); Monocytes # 0.7 10^3/uL (0.2-0.9); Monocytes % 6.9 %; Neutrophils # 7.76 10^3/uL (1.8-7.7); Neutrophils % 77.5 %; Nucleated Red Blood Cells % 0 %; Platelet Count 176 10^3/cmm (157-399); Red Blood Count 4.56 10^6/uL (3.85-5.65); Red Cell Distribution Width 13.3 % (12.1-15.1); White Blood Count 10.01 10^3/uL (3.29-11.43)
[2023-11-13 08:41] LABS: Alanine Aminotransferase 28 U/L (0-33); Albumin Level 4.2 g/dL (3.5-5.2); Alkaline Phosphatase 159 U/L (35-105); Anion Gap 15.2 (5-19); Aspartate Amino Transferase 23 U/L (0-32); Blood Urea Nitrogen 18 mg/dL (8-23); Calcium 9.8 mg/dL (8.5-10.5); Carbon Dioxide 23 mmol/L (22-29); Chloride 103 mmol/L (98-107); Globulin 2.8 g/dL (1.3-4.6); Glucose 290 mg/dL (65-115); Osmolality Calculated 297 mOsm/kg (285-295); Potassium 4.2 mmol/L (3.5-5.1); Sodium 137 mmol/L (136-145); Thyroid Stimulating Hormone 0.69 uIU/mL (0.27-4.20); Total Bilirubin 0.6 mg/dL (0.15-1.2)
[2023-11-13] MEDS: sodium chloride 0.9% 250 ML 75 ML IV (10:36)
[2023-11-13] MEDS: OLANZapine 5 mg TABLET PO (10:39)
[2023-11-13] MEDS: acetaminophen 325 mg Tablet 650 MG PO (10:40)
[2023-11-13] MEDS: diphenhydrAMINE 50 mg/mL SDV 1mL 25 MG IVP (10:42)
[2023-11-13] MEDS: palonosetron 0.25 mg/5 mL SDV IVP (10:47)
[2023-11-13] MEDS: famotidine 20 mg/2 mL INJ IVP (10:47)
[2023-11-13] MEDS: cyanocobalamin 1,000 mcg/mL SDV 1000 MCG IM (11:43)
[2023-11-13] MEDS: fosaprepitant 150 MG in sodium chloride 0.9% 150 ML 300 MG IV (13:35)
[2023-11-13] MEDS: SODIUM CHLORIDE 0.9% IV (13:55)
[2023-11-13] MEDS: PEMETREXED DISODIUM IV (13:55)
[2023-11-13] MEDS: potassium chloride 20 MEQ in sodium chloride 0.9% 500 ML 255 MEQ IV (14:16)
[2023-11-13] MEDS: FUROsemide 10 mg/mL SDV 2mL 20 MG IVP (14:18)
[2023-11-13 15:54] VITALS: BP 154/72; PULSE 68; RESP 18; TEMP 36.6; O2SAT 98
== END 2023-11-13 23:59 | disposition home or self-care (01) ==
PROVIDERS: Internal Medicine; Internal Medicine Medical Oncology; Family Provider Nurse Practitioner Family; PCP Family Medicine; Visit Provider Nurse Practitioner Family
DX: Z53.9 Procedure and treatment not carried out, unspecified reason (principal); C34.92 Malignant neoplasm of unspecified part of left bronchus or lung; E11.65 Type 2 diabetes mellitus with hyperglycemia; Z79.899 Other long term (current) drug therapy
CPT/HCPCS: 36415; 80053; 81001; 84443; 85025; 86705; 86706; 86709; 86803; 87077; 87086; 87186; 87340; 96365; 96366; 96368; 96372; 96374; 96375; 96411; 96413; 96415; 96417; 99205; 99215; A4222; J1100; J1200; J1453; J1642; J1940; J2469; J3420; J3475; J3480; J3490; J7030; J7040; J7050; J9060; J9299; J9305

== ENCOUNTER 2023-11-20 13:44 | Oncology outpatient (recurring) (ONCR) | payer MEDICARE, BC, SELFPAY ==
[2023-11-20 13:55] VITALS: BP 130/68; PULSE 69; RESP 16; TEMP 36.1; O2SAT 98
[2023-11-20 14:02] LABS: Basophils % 0.3 %; Eosinophils # 0.3 10^3/uL (0.0-0.8); Eosinophils % 4.5 %; Hematocrit 37.6 % (36-47); Lymphocytes # 1.2 10^3/uL (0.8-4.8); Lymphocytes % 18.1 %; Mean Corpuscular HGB Conc 34.3 g/dL (30-55); Mean Corpuscular Hemoglobin 29.7 pg (27-33); Mean Corpuscular Volume 86.4 fl (85-98); Mean Platelet Volume 12.6 fL (7.4-10.4); Monocytes # 0.2 10^3/uL (0.2-0.9); Monocytes % 2.5 %; Neutrophils # 4.94 10^3/uL (1.8-7.7); Nucleated Red Blood Cells % 0 %; Platelet Count 141 10^3/cmm (157-399); Red Blood Count 4.35 10^6/uL (3.85-5.65); Red Cell Distribution Width 12.9 % (12.1-15.1); White Blood Count 6.68 10^3/uL (3.29-11.43)
[2023-11-20 14:20] LABS: Alanine Aminotransferase 33 U/L (0-33); Albumin Level 4.1 g/dL (3.5-5.2); Alkaline Phosphatase 126 U/L (35-105); Anion Gap 16.1 (5-19); Aspartate Amino Transferase 20 U/L (0-32); Blood Urea Nitrogen 33 mg/dL (8-23); Calcium 8.9 mg/dL (8.5-10.5); Carbon Dioxide 22 mmol/L (22-29); Chloride 102 mmol/L (98-107); Globulin 2.3 g/dL (1.3-4.6); Glucose 214 mg/dL (65-115); Osmolality Calculated 298 mOsm/kg (285-295); Potassium 3.1 mmol/L (3.5-5.1); Sodium 137 mmol/L (136-145); Total Bilirubin 0.5 mg/dL (0.15-1.2); Total Protein 6.4 g/dL (6.6-8.7)
== END 2023-11-23 23:59 | disposition home or self-care (01) ==
PROVIDERS: Family Provider Nurse Practitioner Family; PCP Family Medicine; Visit Provider Nurse Practitioner Family
DX: C34.92 Malignant neoplasm of unspecified part of left bronchus or lung; Z53.9 Procedure and treatment not carried out, unspecified reason
CPT/HCPCS: 36591; 80053; 85025; J1642

== ENCOUNTER 2023-11-26 20:00 | Outpatient (CLI) | payer MEDICARE, BC, SELFPAY | END 2023-11-26 20:01 | disposition home or self-care (01) | LOC: SLEEP 11-27 04:46 | PROVIDERS: PCP Family Medicine; Visit Provider Family Medicine | DX: G47.10 Hypersomnia, unspecified (principal); G47.33 Obstructive sleep apnea (adult) (pediatric) | CPT/HCPCS: 95810 ==

== ENCOUNTER → 2023-12-02 14:34 | Outpatient (BNVA) | payer MEDICARE, BC, SELFPAY | PROVIDERS: Family Provider Nurse Practitioner Family; PCP Family Medicine; Visit Provider Family Medicine | DX: N39.0 Urinary tract infection, site not specified (principal) | CPT/HCPCS: 87077; 87086; 87184 ==

== ENCOUNTER 2023-12-03 14:59 | Outpatient (CLI) | payer MEDICARE, BC, SELFPAY ==
--- NOTE | 2023-12-03 15:15 | MR_ITS ---
WS: [id number] MRI BRAIN WITH AND WITHOUT CONTRAST HISTORY: cancer staging COMPARISON: None available. TECHNIQUE: Multiplanar imaging performed through the brain with MultiHance 20 ml's IV. No acute infarcts are seen. Springer-white matter differentiation is well preserved. Moderate symmetric a trophy and mild small vessel ischemic disease. Prior lacunar infarct external capsule on the RIGHT. N o large territory infarct. Mild bilateral hippocampal formation atrophy. No susceptibility. Ventricles and extra-axial spaces are prominent on the basis of atrophy. Clivus and pituitary gland are normal. Visualized posterior fossa and brainstem are also normal. Postcontrast images are negative for masses or vascular malformations. Dural venous sinuses are normal. Paranasal sinuses: Well aerated with no significant disease. Mastoid air cells: Normal. Calvarium and scalp: Normal. IMPRESSION: 1. No diffusion abnormality. 2. No evidence for metastatic disease to the brain. 3. Moderate atrophy and mild small vessel ischemic disease.
[2023-12-03] MEDS: gadobenate dimeglumine 20 mL vial IV (15:18)
== END 2023-12-03 15:00 | disposition home or self-care (01) ==
LOC: RAD 14:59
PROVIDERS: Family Provider Nurse Practitioner Family; PCP Family Medicine; Visit Provider Internal Medicine
DX: C34.92 Malignant neoplasm of unspecified part of left bronchus or lung (principal)
CPT/HCPCS: 70553; A9577

== ENCOUNTER 2023-12-09 08:30 | Oncology outpatient (recurring) (ONCR) | payer MEDICARE, BC, SELFPAY ==
[2023-11-27 13:15] VITALS: BP 160/64; PULSE 52; RESP 16; TEMP 36.6; O2SAT 96
[2023-11-27 13:22] LABS: Basophils % 0.1 %; Eosinophils # 0.2 10^3/uL (0.0-0.8); Hematocrit 34.9 % (36-47); Lymphocytes % 14.6 %; Mean Corpuscular HGB Conc 34.4 g/dL (30-55); Mean Corpuscular Hemoglobin 29.3 pg (27-33); Mean Corpuscular Volume 85.3 fl (85-98); Mean Platelet Volume 12.2 fL (7.4-10.4); Monocytes # 0.7 10^3/uL (0.2-0.9); Monocytes % 9.4 %; Neutrophils # 5.04 10^3/uL (1.8-7.7); Neutrophils % 71.9 %; Nucleated Red Blood Cells % 0 %; Platelet Count 166 10^3/cmm (157-399); Red Blood Count 4.09 10^6/uL (3.85-5.65); Red Cell Distribution Width 13.3 % (12.1-15.1); White Blood Count 7.01 10^3/uL (3.29-11.43)
[2023-11-27 13:44] LABS: Alanine Aminotransferase 30 U/L (0-33); Alkaline Phosphatase 144 U/L (35-105); Anion Gap 14.6 (5-19); Aspartate Amino Transferase 22 U/L (0-32); Blood Urea Nitrogen 27 mg/dL (8-23); Calcium 9.2 mg/dL (8.5-10.5); Carbon Dioxide 26 mmol/L (22-29); Chloride 101 mmol/L (98-107); Globulin 2.4 g/dL (1.3-4.6); Glucose 154 mg/dL (65-115); Osmolality Calculated 294 mOsm/kg (285-295); Potassium 3.6 mmol/L (3.5-5.1); Sodium 138 mmol/L (136-145); Total Bilirubin 0.3 mg/dL (0.15-1.2); Total Protein 6.4 g/dL (6.6-8.7)
[2023-12-03 13:06] VITALS: BP 164/81; PULSE 63; RESP 16; TEMP 37.2; O2SAT 96
[2023-12-03 13:36] LABS: Basophils % 0.3 %; Hematocrit 35.5 % (36-47); Lymphocytes # 0.5 10^3/uL (0.8-4.8); Lymphocytes % 8.1 %; Mean Corpuscular HGB Conc 33.8 g/dL (30-55); Mean Corpuscular Hemoglobin 29.3 pg (27-33); Mean Corpuscular Volume 86.8 fl (85-98); Mean Platelet Volume 12.1 fL (7.4-10.4); Monocytes # 0.4 10^3/uL (0.2-0.9); Neutrophils # 4.76 10^3/uL (1.8-7.7); Neutrophils % 79.1 %; Nucleated Red Blood Cells % 0 %; Platelet Count 202 10^3/cmm (157-399); Red Blood Count 4.09 10^6/uL (3.85-5.65); Red Cell Distribution Width 14.4 % (12.1-15.1); White Blood Count 6.02 10^3/uL (3.29-11.43)
[2023-12-03 13:55] LABS: Alanine Aminotransferase 32 U/L (0-33); Alkaline Phosphatase 175 U/L (35-105); Anion Gap 13.8 (5-19); Aspartate Amino Transferase 21 U/L (0-32); Blood Urea Nitrogen 24 mg/dL (8-23); Calcium 9.6 mg/dL (8.5-10.5); Carbon Dioxide 25 mmol/L (22-29); Chloride 103 mmol/L (98-107); Globulin 2.6 g/dL (1.3-4.6); Glucose 357 mg/dL (65-115); Osmolality Calculated 302 mOsm/kg (285-295); Potassium 4.8 mmol/L (3.5-5.1); Sodium 137 mmol/L (136-145); Total Bilirubin 0.3 mg/dL (0.15-1.2); Total Protein 6.6 g/dL (6.6-8.7)
[2023-12-03 14:23] LABS: Slide Review Slide Review Perform
[2023-12-04 10:19] LABS: Albumin Level 4.1 g/dL (3.5-5.2); Anion Gap 15.8 (5-19); Blood Urea Nitrogen 33 mg/dL (8-23); Calcium 9.6 mg/dL (8.5-10.5); Carbon Dioxide 23 mmol/L (22-29); Chloride 102 mmol/L (98-107); Glucose 432 mg/dL (65-115); Phosphorus 3.5 mg/dL (2.5-4.5); Potassium 4.8 mmol/L (3.5-5.1); Sodium 136 mmol/L (136-145)
[2023-12-04 11:00] VITALS: BP 159/83; PULSE 56; RESP 17; TEMP 35.9; O2SAT 94
[2023-12-05 12:09] LABS: Alpha 1 Antitrypsin 106 mg/dL (83-199)
[2023-12-09 07:56] VITALS: BP 133/73; PULSE 70; TEMP 35.9; O2SAT 95
[2023-12-09 08:02] LABS: Basophils # 0.1 10^3/uL (0.0-0.1); Basophils % 0.4 %; Eosinophils % 0.1 %; Hematocrit 38.7 % (36-47); Lymphocytes % 8.2 %; Mean Corpuscular HGB Conc 33.9 g/dL (30-55); Mean Corpuscular Hemoglobin 29.9 pg (27-33); Mean Corpuscular Volume 88.4 fl (85-98); Mean Platelet Volume 11.9 fL (7.4-10.4); Monocytes # 0.7 10^3/uL (0.2-0.9); Monocytes % 5.7 %; Neutrophils # 9.76 10^3/uL (1.8-7.7); Nucleated Red Blood Cells % 0 %; Platelet Count 168 10^3/cmm (157-399); Red Blood Count 4.38 10^6/uL (3.85-5.65); White Blood Count 12.06 10^3/uL (3.29-11.43)
[2023-12-09 08:22] LABS: Alanine Aminotransferase 48 U/L (0-33); Alkaline Phosphatase 135 U/L (35-105); Anion Gap 15.7 (5-19); Aspartate Amino Transferase 22 U/L (0-32); Blood Urea Nitrogen 23 mg/dL (8-23); Calcium 9.7 mg/dL (8.5-10.5); Carbon Dioxide 20 mmol/L (22-29); Chloride 107 mmol/L (98-107); Globulin 2.9 g/dL (1.3-4.6); Glucose 199 mg/dL (65-115); Osmolality Calculated 295 mOsm/kg (285-295); Potassium 4.7 mmol/L (3.5-5.1); Sodium 138 mmol/L (136-145); Total Bilirubin 0.6 mg/dL (0.15-1.2); Total Protein 6.9 g/dL (6.6-8.7)
[2023-12-09] MEDS: OLANZapine 5 mg TABLET PO (10:05)
[2023-12-09] MEDS: acetaminophen 325 mg Tablet 650 MG PO (10:05)
[2023-12-09] MEDS: sodium chloride 0.9% 250 ML 75 ML IV (10:46)
[2023-12-09] MEDS: diphenhydrAMINE 50 mg/mL SDV 1mL 25 MG IVP (10:49)
[2023-12-09] MEDS: famotidine 20 mg/2 mL INJ IVP (10:52)
[2023-12-09] MEDS: palonosetron 0.25 mg/5 mL SDV IVP (10:55)
[2023-12-09] MEDS: fosaprepitant 150 MG in sodium chloride 0.9% 150 ML 300 MG IV (10:58)
[2023-12-09] MEDS: nivolumab 240 MG, nivolumab 120 MG in sodium chloride 0.9% 250 ML 572 MG IV (11:52)
[2023-12-09] MEDS: SODIUM CHLORIDE 0.9% IV (12:47)
[2023-12-09] MEDS: PEMETREXED DISODIUM IV (12:47)
[2023-12-09] MEDS: FUROsemide 10 mg/mL SDV 2mL 20 MG IVP (15:28)
[2023-12-09] MEDS: potassium chloride 20 MEQ in sodium chloride 0.9% 500 ML 500 MEQ IV (15:32)
[2023-12-09 16:31] VITALS: BP 139/72; PULSE 56; TEMP 36; O2SAT 97
== END 2023-12-09 23:59 | disposition home or self-care (01) ==
PROVIDERS: Internal Medicine; Family Provider Nurse Practitioner Family; PCP Family Medicine; Visit Provider Nurse Practitioner Family
DX: Z53.9 Procedure and treatment not carried out, unspecified reason (principal); C34.12 Malignant neoplasm of upper lobe, left bronchus or lung; Z51.12 Encounter for antineoplastic immunotherapy; Z51.11 Encounter for antineoplastic chemotherapy
CPT/HCPCS: 36591; 70553; 80053; 80069; 82103; 85025; 96366; 96367; 96375; 96413; 96415; 96417; 99215; A4222; A9577; J1100; J1200; J1453; J1642; J1940; J2469; J3475; J3480; J3490; J7030; J7040; J7050; J9060; J9299; J9305

== ENCOUNTER → 2023-12-29 11:19 | Outpatient (BNVA) | payer MEDICARE, BC, SELFPAY | PROVIDERS: Family Provider Nurse Practitioner Family; PCP Family Medicine; Visit Provider Family Medicine | DX: R30.0 Dysuria (principal) | CPT/HCPCS: 87086 ==

== ENCOUNTER 2023-12-30 07:33 | Oncology outpatient (recurring) (ONCR) | payer MEDICARE, BC, SELFPAY ==
[2023-12-30 08:06] LABS: Basophils % 0.4 %; Eosinophils # 0.2 10^3/uL (0.0-0.8); Eosinophils % 3.4 %; Hematocrit 28.5 % (36-47); Lymphocytes # 1.1 10^3/uL (0.8-4.8); Lymphocytes % 24.2 %; Mean Corpuscular HGB Conc 34.7 g/dL (30-55); Mean Corpuscular Hemoglobin 30.7 pg (27-33); Mean Corpuscular Volume 88.2 fl (85-98); Mean Platelet Volume 11.5 fL (7.4-10.4); Monocytes # 0.7 10^3/uL (0.2-0.9); Monocytes % 15.7 %; Neutrophils # 2.33 10^3/uL (1.8-7.7); Nucleated Red Blood Cells % 0 %; Platelet Count 176 10^3/cmm (157-399); Red Blood Count 3.23 10^6/uL (3.85-5.65); Red Cell Distribution Width 15.9 % (12.1-15.1); White Blood Count 4.47 10^3/uL (3.29-11.43)
[2023-12-30 08:41] LABS: Alanine Aminotransferase 18 U/L (0-33); Alkaline Phosphatase 126 U/L (35-105); Anion Gap 15.3 (5-19); Aspartate Amino Transferase 19 U/L (0-32); Blood Urea Nitrogen 15 mg/dL (8-23); Calcium 9.8 mg/dL (8.5-10.5); Carbon Dioxide 23 mmol/L (22-29); Chloride 106 mmol/L (98-107); Globulin 2.4 g/dL (1.3-4.6); Glucose 160 mg/dL (65-115); Osmolality Calculated 296 mOsm/kg (285-295); Potassium 3.3 mmol/L (3.5-5.1); Sodium 141 mmol/L (136-145); Thyroid Stimulating Hormone 2.54 uIU/mL (0.27-4.20); Total Bilirubin 0.5 mg/dL (0.15-1.2); Total Protein 6.4 g/dL (6.6-8.7)
[2023-12-30 09:55] LABS: Iron 69 ug/dL (37-145); Percent Saturation 29.7 % (20-50); Total Iron Binding Capacity 232 mcg/dl; Unsaturated Iron Binding 163 ug/dL (112-347)
[2023-12-30 10:07] LABS: Ferritin 1138 ng/mL (15-150)
[2023-12-30] MEDS: sodium chloride 0.9% 250 ML 50 ML IV (12:09)
[2023-12-30] MEDS: acetaminophen 325 mg Tablet 650 MG PO (12:10)
[2023-12-30] MEDS: OLANZapine 5 mg TABLET PO (12:11)
[2023-12-30] MEDS: palonosetron 0.25 mg/5 mL SDV IVP (12:13)
[2023-12-30] MEDS: diphenhydrAMINE 50 mg/mL SDV 1mL 25 MG IVP (12:16)
[2023-12-30] MEDS: famotidine 20 mg/2 mL INJ IVP (12:19)
[2023-12-30] MEDS: fosaprepitant 150 MG in sodium chloride 0.9% 150 ML 300 MG IV (12:22)
[2023-12-30] MEDS: PEMETREXED DISODIUM IV (14:40)
[2023-12-30] MEDS: SODIUM CHLORIDE 0.9% IV (14:40)
[2023-12-30] MEDS: FUROsemide 10 mg/mL SDV 2mL 20 MG IVP (15:48)
[2023-12-30] MEDS: potassium chloride 20 MEQ in sodium chloride 0.9% 500 ML 750 MEQ IV (15:49)
[2023-12-30 17:35] VITALS: BP 140/102; PULSE 84; RESP 18; TEMP 36.6; O2SAT 98
[2024-01-05 17:14] LABS: Soluble Transferrin Receptor 1.15 mg/L (0.76-1.76)
== END 2023-12-30 23:59 | disposition home or self-care (01) ==
PROVIDERS: Internal Medicine; Family Provider Nurse Practitioner Family; PCP Family Medicine; Visit Provider Nurse Practitioner Family
DX: C34.12 Malignant neoplasm of upper lobe, left bronchus or lung; R32 Unspecified urinary incontinence; E11.65 Type 2 diabetes mellitus with hyperglycemia; Z79.899 Other long term (current) drug therapy; Z51.11 Encounter for antineoplastic chemotherapy; Z51.12 Encounter for antineoplastic immunotherapy; C77.1 Secondary and unspecified malignant neoplasm of intrathoracic lymph nodes; Z79.4 Long term (current) use of insulin
CPT/HCPCS: 80053; 82728; 83540; 83550; 84238; 84443; 85025; 96365; 96366; 96367; 96375; 96413; 96415; 96417; 99214; A4222; J1100; J1200; J1453; J1642; J1940; J2469; J3475; J3480; J3490; J7030; J7040; J7050; J9060; J9299; J9305

== ENCOUNTER 2024-01-04 13:16 | Emergency (ER) | payer MEDICARE, BC, SELFPAY ==
--- NOTE | 2024-01-04 13:23 | ECG_ITS ---
[facility] Test Date: 2024-01-04 Pat Name: Betty Hamm Department: Room: Gender: Female Weaver Apprentice: : 1950 Requested By: Jose Juan Riley Order Number: [id number] Ira MD: Wilian Andino M.D. Measurements Intervals [place] Rate: 71 P: 20 AK: 189 QRS: -13 QRSD: 92 T: 35 QT: 417 QTc: 455 Interpretive Statements SINUS RHYTHM VOLTAGE CRITERIA FOR LVH [MEETS CRITERIA IN ONE OF: R(aVL), S(V1), R(V5), R(V5/V6)+S(V1)] Compared to ECG 06/14/2019 19:09:42 Sinus bradycardia no longer present ST (T wave) deviation no longer present Electronically Signed On 01-05-2024 14:17:15 TRAIN CALLER by Wilian Andino M.D. [id number]
[2024-01-04 13:26] VITALS: BP 107/63; PULSE 71; RESP 16; TEMP 36.3; O2SAT 98; BMI 33.3
--- NOTE | 2024-01-04 13:54 | XRR_ITS ---
PROCEDURE INFORMATION: Exam: XR Chest Exam date and time: 01/04/2024 2:00 PM Age: 73 years old Clinical indication: Shortness of breath; Additional info: SOB TECHNIQUE: Imaging protocol: Radiologic exam of the chest. Views: 1 view. COMPARISON: CR XR chest 1V portable [id number] 10/20/2023 11:33 AM FINDINGS: Lungs: No consolidation. Pleural spaces: No pleural effusion. No pneumothorax. Heart/Mediastinum: No cardiomegaly. Bones/joints: No acute findings. XR/XR chest 1V portable [id number] IMPRESSION: No acute findings.
[2024-01-04] MEDS: ketorolac 30 mg/mL INJ IVP (14:07)
[2024-01-04 14:15] LABS: Basophils % 0.2 %; Eosinophils # 0.1 10^3/uL (0.0-0.8); Eosinophils % 1.8 %; Hematocrit 28.1 % (36-47); Lymphocytes # 0.7 10^3/uL (0.8-4.8); Mean Corpuscular HGB Conc 34.5 g/dL (30-55); Mean Corpuscular Hemoglobin 30.7 pg (27-33); Mean Corpuscular Volume 88.9 fl (85-98); Mean Platelet Volume 12.3 fL (7.4-10.4); Monocytes # 0.1 10^3/uL (0.2-0.9); Monocytes % 0.9 %; Neutrophils # 4.72 10^3/uL (1.8-7.7); Neutrophils % 83.7 %; Nucleated Red Blood Cells % 0 %; Platelet Count 125 10^3/cmm (157-399); Red Blood Count 3.16 10^6/uL (3.85-5.65); Red Cell Distribution Width 15.7 % (12.1-15.1); White Blood Count 5.63 10^3/uL (3.29-11.43)
[2024-01-04 14:31] VITALS: BP 124/59; PULSE 64; O2SAT 99
[2024-01-04 14:42] LABS: Anion Gap 18.8 (5-19); Blood Urea Nitrogen 28 mg/dL (8-23); Calcium 8.7 mg/dL (8.5-10.5); Carbon Dioxide 21 mmol/L (22-29); Chloride 104 mmol/L (98-107); Glucose 171 mg/dL (65-115); Osmolality Calculated 300 mOsm/kg (285-295); Potassium 3.8 mmol/L (3.5-5.1); Sodium 140 mmol/L (136-145)
[2024-01-04 14:43] LABS: Troponin(5th) Baseline 16 ng/L (0-10)
[2024-01-04 14:48] LABS: NT Pro B Type Natriuretic Pept 399 pg/mL (0-125)
--- NOTE | 2024-01-04 14:59 | CTR_ITS ---
PROCEDURE INFORMATION: Exam: CTA Chest With Contrast Exam date and time: 01/04/2024 3:12 PM Age: 73 years old Clinical indication: Shortness of breath; Prior surgery; Surgery date: 1-6 months; Surgery type: Port; Additional info: perfecto SIM TECHNIQUE: Imaging protocol: Computed tomographic angiography of the chest with contrast. Exam focused on the arteries. 3D rendering (Not supervised by radiologist): MIP and/or 3D reconstructed images were created by the technologist. Radiation optimization: All CT scans at this facility use at least one of these dose optimization techniques: automated exposure control; mA and/or kV adjustment per patient size (includes targeted exams where dose is matched to clinical indication); or iterative reconstruction. Contrast material: OMNI 350; Contrast volume: 69 ml; Contrast route: INTRAVENOUS (IV); COMPARISON: CT angio chest [id number] 06/14/2019 7:55 PM RADIATION DOSE METRICS: Total DLP (mGy-cm): 429.09 FINDINGS: Pulmonary arteries: No central or segmental pulmonary emboli. Aorta: No aortic aneurysm or dissection. Lungs: Unchanged 14 mm left mid lung/lingular nodule. A few other tiny nodules are also grossly unchanged for example 5 mm nodule in the right middle lobe series 7, image 268. No focal consolidation. Pleural spaces: No pneumothorax. No pleural effusion. Heart: Coronary calcifications. No pericardial effusion. Lymph nodes: No enlarged lymph nodes. Bones/joints: No acute findings. Soft tissues: No acute findings. CT/CT angio chest [id number] IMPRESSION: No acute chest findings. Unchanged pulmonary nodules.
[2024-01-04] MEDS: iohexol 350 mg/mL 500 mL Btl (per mL) IV (15:17)
--- NOTE | 2024-01-04 15:38 | ECG_ITS ---
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 Measurements Intervals [place] Rate: 58 P: 185 CT: 224 QRS: 204 QRSD: 101 T: 192 QT: 458 QTc: 452 Interpretive Statements ECTOPIC ATRIAL BRADYCARDIA WITH FIRST DEGREE AV BLOCK WITH OCCASIONAL SUPRAVENTRICULAR PREMATURE COMPLEXES RIGHT AXIS DEVIATION [QRS AXIS > 100] MODERATE T-WAVE ABNORMALITY, CONSIDER INFERIOR ISCHEMIA [-0.1+ mV T-WAVE IN II/aVF] Compared to ECG 01/04/2024 13:23:03 Bradycardia, nonsinus now present First degree AV block now present Right-axis deviation now present T-wave abnormality now present Possible ischemia now present Sinus rhythm no longer present Left ventricular hypertrophy no longer present Electronically Signed On 01-05-2024 14:20:17 HUMAN SERVICES PROGRAM SPECIALIST by Wilian Andino M.D. [id number]
[2024-01-04] MEDS: ondansetron 2 mg/ML SDV 2 mL 4 MG IVP (15:44)
[2024-01-04 16:33] LABS: Troponin 5 2HR 17.66 ng/L (0-10); Troponin 5 2HR Delta 1.66 ABS# (0-10)
[2024-01-04 17:06] VITALS: BP 131/60; PULSE 64; O2SAT 100
--- NOTE | 2024-01-04 17:26 | ED_ITS ---
HPI - SOB/Dyspnea 2 General: Chief Complaint: Shortness of Breath/Dyspnea Stated Complaint: pressure in left shoulder, sob Time Seen by Provider: 01/04/24 13:33 History of Present Illness: HPI Narrative: This patient is a 73-year-old white female who presents to the ER complaining of pressure in the area of the left shoulder blade. This started at 7 PM last night. She does have associated shortness of breath. No nausea or vomiting. No anterior chest pain. Patient has a history of lung cancer and just received chemotherapy on Friday. She states she does not have a history of coronary artery disease or COPD. She has not had any pain or swelling in her legs. Review of Systems 2 General: Reports: 10 or more systems reviewed and unremarkable except in HPI and below Resp: Reports: dyspnea Musc: Reports: back pain PFSH ED 2 PFSH: Medical History Adenocarcinoma of left lung, stage 3 Dyslipidemia T2DM (type 2 diabetes mellitus) Syncope and collapse The EKG from 06/01/2020 revealed sinus rhythm, minimal left axis deviation, minimal voltage criteria for LVH and some nonspecific T wave changes. Benign essential HTN Glaucoma Labyrinthitis Diabetes Depression Osteoporosis Bradycardia Surgical History H/O hysterectomy with oophorectomy Hx of cataract removal with insertion of prosthetic lens Hx of appendectomy Family History Other Hypertension Postsurgical cardiac pacemaker in situ Stroke Social History Smoking and tobacco/nicotine status: never used tobacco/nicotine Second hand smoke exposure: Yes Alcohol intake: never Substance/Drug Use: never Physical Exam 2 Const: COMMON NORMALS: no acute distress, patient oriented x3 and no limitations GENERAL APPEARANCE: cooperative and comfortable HENMT: COMMON NORMALS: normocephalic, atraumatic, Normal nasal mucous membranes and turbinates present, moist oral mucous membranes and oropharynx normal HEAD & SCALP: normal to inspection, normocephalic and atraumatic F HUMERA & SINUS: normal facial exam NOSE: Normal nasal mucous membranes and turbinates present Eye: COMMON NORMALS: Equal, round and reactive pupils present, EOMs intact bilaterally and conjunctivae normal GENERAL EYE: appearance normal, both eyes and all related structures CONJUNCTIVA: Yes conjunctivae normal PUPIL: Yes Equal, round and reactive pupils present Neck/C-Spine: COMMON NORMALS: supple and no JVD Chest: COMMONS NORMALS: normal inspection of the chest Resp: COMMON NORMALS: normal respiratory effort and clear to auscultation bilaterally AUSCULTATION: clear to auscultation bilaterally Cardio: COMMON NORMALS: no JVD, regular rate, regular rhythm, No gallops present (Cardio), No murmurs present (Cardio) and No rub (Cardio) RATE: r egular rate RHYTHM: regular rhythm GI: COMMON NORMALS: Normal to inspection, nondistended, normoactive bowel sounds present, Soft to palpation and non-tender AUSCULTATION: Yes normoactive bowel sounds PALPATION: Yes Soft to palpation : COMMON NORMALS: Yes no CVA tenderness BLADDER/KIDNEY EXAM: Yes no CVA tenderness Back/Pelvis: COMMON NORMALS: no CVA tenderness and thoracic and lumbar spine normal to inspection Extremity: COMMON NORMALS: normal to inspection Neuro: COMMON NORMALS: patient oriented x3 and CN's II-XII intact bilaterally Psych: COMMON NORMALS: mental status grossly normal, Normal thought process present and cooperative THOUGHT PROCESS: Normal thought process present Skin: COMMON NORMALS: no rashes or lesions noted, turgor normal and no jaundice GENERAL SKIN EXAM: no rashes or lesions noted and turgor normal Course 2 Vital Signs: Vital signs: Vital Signs Temperature 97.4 F L 01/04/24 13:26 Pulse Rate 64 01/04/24 17:06 Respiratory Rate 16 01/04/24 13:26 Blood Pressure 131/60 01/04/24 17:06 Pulse Oximetry 100 01/04/24 17:06 Oxygen Delivery Me thod Room Air 01/04/24 17:06 MDM - SOB/Dyspnea Medical Decision Making EKG revealed sinus rhythm with no ST segment abnormalities. Chest x-ray was normal. CBC revealed a hemoglobin of 9.7 which is stable. BMP was normal. Baseline high-sensitivity opponent was 16 with a 2-hour level of 17.6. BNP was 399. CT angiogram of the chest did not reveal PE. Patient declined narcotic pain medication. She was given Toradol in the emergency department which did help somewhat. She states she will be fine with taking Tylenol or ibuprofen at home and does not want anything stronger than that. I recommended she follow-up with her primary care physician and/or oncologist later this week for recheck. She was discharged in stable condition. Lab Data 01/04/24 14:09 01/04/24 14:09 Labs/Radiology: Radiology Impressions Chest X-Ray 01/04/24 13:54 IMPRESSION: No acute findings. Chest CTA 01/04/24 14:59 IMPRESSION: No acute chest findings. Unchanged pulmonary nodules. Laboratory Results WBC 5.63 10^3/uL (3.29-11.43) 01/04/24 14:09 RBC 3.16 10^6/uL (3.85-5.65) L 01/04/24 14:09 Hgb 9.70 g/dL (11.27-16.99) L 01/04/24 14:09 Hct 28.1 % (36-47) L 01/04/24 14:09 MCV 88.9 fl (85-98) 01/04/24 14:09 MCH 30.7 pg (27-33) 01/04/24 14:09 MCHC 34.5 g/dL (30-55) 01/04/24 14:09 RDW 15.7 % (12.1-15.1) H 01/04/24 14:09 Plt Count 125 10^3/cmm (157-399) L 01/04/24 14:09 MPV 12.3 fL (7.4-10.4) H 01/04/24 14:09 Neut % (Auto) 83.7 % 01/04/24 14:09 Lymph % (Auto) 13.0 % 01/04/24 14:09 [place] % (Auto) 0.9 % 01/04/24 14:09 Eos % (Auto) 1.8 % 01/04/24 14:09 Baso % (Auto) 0.2 % 01/04/24 14:09 Neut # (Auto) 4.72 10^3/uL (1.8-7.7) 01/04/24 14:09 Lymph # (Auto) 0.7 10^3/uL (0.8-4.8) L 01/04/24 14:09 [place] # (Auto) 0.1 10^3/uL (0.2-0.9) L 01/04/24 14:09 Eos # (Auto) 0.1 10^3/uL (0.0-0.8) 01/04/24 14:09 Baso # (Auto) 0.0 10^3/uL (0.0-0.1) 01/04/24 14:09 Nucleated RBC % (auto) 0 % 01/04/24 14:09 Nucleated RBCs # 0.0 /100WBC 01/04/24 14:09 Sodium 140 mmol/L (136-145) 01/04/24 14:09 Potassium 3.8 mmol/L (3.5-5.1) 01/04/24 14:09 Chloride 104 mmol/L (98-107) 01/04/24 14:09 Carbon Dioxide 21 mmol/L (22-29) L 01/04/24 14:09 Anion Gap 18.8 (5-19) 01/04/24 14:09 BUN 28 mg/dL (8-23) H 01/04/24 14:09 Creatinine 1.2 mg/dL (0.5-0.9) H 01/04/24 14:09 GFR Calculation Not Reportable 01/04/24 14:09 Glucose 171 mg/dL (65-115) H 01/04/24 14:09 Calculated Osmolality 300 mOsm/kg (285-295) H 01/04/24 14:09 Calcium 8.7 mg/dL (8.5-10.5) 01/04/24 14:09 Troponin T Baseline 16 ng/L (0-10) H 01/04/24 14:09 Troponin T 120 Minute 17.66 ng/L (0-10) H 01/04/24 16:06 Delta Troponin T 1.66 ABS# (0-10) 01/04/24 16:06 NT-Pro-B Natriuret Pep 399 pg/mL (0-125) H 01/04/24 14:09 All radiology interpretation(s) finalized by discharge Discharge Plan Discharge Patient Disposition: Home Clinical Impression: Acute thoracic back pain Qualifiers: Back pain laterality: left Qualified Code(s): M54.6 - Pain in thoracic spine Lung cancer Qualifiers: Laterality: unspecified laterality Lung location: unspecified part of lung Q ualified Code(s): C34.90 - Malignant neoplasm of unspecified part of unspecified bronchus or lung Condition: Stable Prescriptions: No Action biotin 1 mg capsule 1 mg PO DAILY melatonin 3 mg capsule 3 mg PO DAILY budesonide-formoterol [Symbicort] 80-4.5 mcg/actuation HFA aerosol inhaler 2 puff inhalation BID Qty: 10.2 6RF albuterol sulfate 90 mcg/actuation HFA aerosol inhaler 2 inh inhalation QID PRN (Reason: shortness of breath or wheezing) Qty: 8.5 6RF diazepam [Valium] 10 mg tablet 10 mg PO ONCE PRN (Reason: claustrophobia) Qty: 1 0RF Rx Instructions: Take 30-60 min prior to MRI amlodipine 10 mg tablet 10 mg PO DAILY Qty: 30 6RF ergocalciferol (vitamin D2) 50 mcg (2,000 unit) capsule 50 mcg PO BID Qty: 180 3RF sertraline 100 mg tablet 100 mg PO DAILY Qty: 90 3RF omeprazole 40 mg capsule,delayed release(DR/EC) 40 mg PO DAILY Qty: 90 3RF ondansetron HCl 4 mg tablet 4 mg PO Q8H PRN (Reason: nausea and vomiting) Qty: 60 6RF valsartan 160 mg tablet 160 mg PO DAILY Qty: 90 3RF (DME) Bedside commode See Rx Instructions .Route .MEDSUPPLY Qty: 1 0RF Rx Instructions: As directed (DME) Depends See Rx Instructions .Route .MEDSUPPLY Qty: 1 0RF Rx Instructions: As directed lorazepam 1 mg tablet 0.5 - 1 mg PO Q6H PRN (Reason: Severe Nausea) Qty: 30 3RF folic acid 1 mg tablet 1 mg PO DAILY Qty: 30 5RF Rx Instructions: start 7 days prior to treatment and continuing for 21 days after the last pemetrexed dose. lidocaine-prilocaine 2.5-2.5 % cream 1 applic topical .COMPLEX Qty: 30 3RF Rx Instructions: apply quarter size amount 30 minutes prior to appointment and cover with cling wrap. (DME) Auto-titrating CPAP with mask and supplies See Rx Instructions .ROUTE .MEDSUPPLY Qty: 1 0RF Rx Instructions: Use while sleeping at least 4 hours per day. Settings: 6-16 cm H2O Trulicity 0.75 mg/0.5 mL pen injector 0.75 mg SUBCUT DIRECTED Qty: 2 6RF Rx Instructions: weekly sat or sun insulin lispro [Humalog KwikPen Insulin] 100 unit/mL insulin pen 5 unit SUBCUT TID Qty: 15 6RF Rx Instructions: Inject SQ via sliding scale ACHS 150-200 - 2 units 201-250 - 4 units 251-300 - 6 units 301-350 - 8 units 351-400+ - 10 units (DME) pen needle, diabetic [TechLITE Pen Needle] 31 gauge x 5/16 needle See Rx Instructions .ROUTE .MEDSUPPLY Qty: 100 6RF Rx Instructions: As directed ciprofloxacin HCl 500 mg tablet 500 mg PO BID 7 Days Qty: 14 0RF insulin glargine [Lantus Solostar U-100 Insulin] 100 unit/mL (3 mL) insulin pen 20 unit SUBCUT QAM Qty: 15 3RF Rx Instructions: Inject 20 U qAM. If fasting glucose >150 for 3 days in a row, increase by 5 U. Max 50 Units (DME) pen needle, diabetic [TechLITE Pen Needle] 31 gauge x 5/16 needle See Rx Instructions .ROUTE .MEDSUPPLY Qty: 100 6RF Rx Instructions: As directed meclizine 25 mg tablet 25 mg PO QID PRN (Reason: dizziness) Qty: 30 0RF Januvia 100 mg tablet 100 mg PO DAILY ondansetron HCl 4 mg Tablet 4 mg PO QID PRN (Reason: Nausea/vomiting) Qty: 30 3RF prochlorperazine maleate [Compazine] 10 mg tablet 10 mg PO Q4H PRN (Reason: Mild Nausea) Qty: 30 3RF dexamethasone 4 mg tablet 4 mg PO DIRECTED Qty: 24 2RF Rx Instructions: Take 4mg by mouth twice daily x 3 days. Start the day prior to Alimta treatment. meloxicam 7.5 mg tablet 7.5 mg PO DAILY Qty: 7 0RF Discharge Orders: Discharge ED (Routine); Ordered 01/04/24 Ordered By: Jose Juan Riley Referrals: Naren Castle MD [Primary Care Provider] - 1-3 days Patient Instructions: Pain Management Coding Level of Care Code ED Front End Developer for Carmella Rodrigues
== END 2024-01-04 17:14 | disposition home or self-care (01) ==
PROVIDERS: Emergency Provider Emergency Medicine; PCP Family Medicine
DX: M54.6 Pain in thoracic spine (principal); C34.92 Malignant neoplasm of unspecified part of left bronchus or lung; Z79.85 Long-term (current) use of injectable non-insulin antidiabetic drugs; Z79.4 Long term (current) use of insulin; Z77.22 Contact with and (suspected) exposure to environmental tobacco smoke (acute) (chronic); E78.5 Hyperlipidemia, unspecified; E11.9 Type 2 diabetes mellitus without complications; I10 Essential (primary) hypertension
CPT/HCPCS: 36415; 71045; 71275; 80048; 83880; 84484; 85025; 93005; 96374; 96375; 99285; J1885; J2405; Q9967

== ENCOUNTER 2024-01-19 07:41 | Oncology outpatient (recurring) (ONCR) | payer MEDICARE, BC, SELFPAY ==
[2024-01-19] VITALS (8 sets, daily range): BP systolic 104–165; BP diastolic 70–84; PULSE 53–65; RESP 16–17; TEMP 36.2–36.7; O2SAT 91–99
[2024-01-19 08:11] LABS: Hematocrit 24.4 % (36-47); Mean Corpuscular HGB Conc 33.2 g/dL (30-55); Mean Corpuscular Hemoglobin 31.9 pg (27-33); Mean Corpuscular Volume 96.1 fl (85-98); Mean Platelet Volume 12.1 fL (7.4-10.4); Platelet Count 221 10^3/cmm (157-399); Red Blood Count 2.54 10^6/uL (3.85-5.65); Red Cell Distribution Width 20.8 % (12.1-15.1); White Blood Count 4.47 10^3/uL (3.29-11.43)
[2024-01-19 08:41] LABS: Slide Review Slide Review Perform
[2024-01-19 08:46] LABS: Absolute Eosinophils 0.2 10^3/cmm (0.0-0.7); Absolute Segmented Neutrophil 2.4 10/cmm (1.6-7.1); Band Neutrophils Absolute 0.3 10^3/cmm (0.0-1.2); Eosinophils 4 %; Lymphocytes 23 %; Lymphocytes Absolute 1.1 10^3/cmm (1.2-3.4); Monocytes Absolute 0.3 10^3/cmm (0.1-0.6); Segmented Neutrophils 53 %; Total Cells Counted 100 (0-100)
[2024-01-19 08:47] LABS: Anisocytosis 1+; Macrocytosis 1+
[2024-01-19 08:48] LABS: Absolute Neutrophil 2.6 10^3/cmm (1.4-6.5); Platelet Estimate Normal (Normal)
[2024-01-19] MEDS: acetaminophen 325 mg Tablet 650 MG PO (10:59)
[2024-01-19] MEDS: diphenhydrAMINE 25 mg Capsule PO (10:59)
[2024-01-19] MEDS: sodium chloride 0.9% 250 mL Bag IV (10:59)
[2024-01-19] MEDS: FUROsemide 10 mg/mL SDV 2mL 20 MG IVP (13:44)
== END 2024-01-22 23:59 | disposition home or self-care (01) ==
PROVIDERS: Internal Medicine Medical Oncology; PCP Family Medicine; Visit Provider Nurse Practitioner Family
DX: Z53.9 Procedure and treatment not carried out, unspecified reason (principal); C34.92 Malignant neoplasm of unspecified part of left bronchus or lung; R32 Unspecified urinary incontinence; E11.65 Type 2 diabetes mellitus with hyperglycemia; Z79.899 Other long term (current) drug therapy
CPT/HCPCS: 36430; 85007; 85025; 86850; 86900; 86920; J1642; J1940; J7050; P9016

== ENCOUNTER 2024-01-22 08:49 | Outpatient (CLI) | payer MEDICARE, BC, SELFPAY ==
--- NOTE | 2024-01-22 | ECG_ITS ---
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 Interpretive Statements NAME OF STUDY: LEXISCAN SESTAMIBI STRESS TEST INDICATION: [Chest Pain, NAJERA, ] Procedure: At the baseline, the blood pressure was 155/77 mmHg with a heart rate of 48 bpm. The electrocardiogram showed sinus bradycardia. The Lexiscan was infused over a period of 20 seconds. A total of 0.4 mg of Lexiscan was infused. The stress phase was continued for a total of 5 minutes. Heart rate was at the end of stress phase was 68 bpm and a blood pressure of 127/49 mmHg. The EKG at the peak infusion revealed normal sinus rhythm with no significant ST-T wave changes. Sestamibi was injected 20 seconds after the Lexiscan infusion. Blood pressure at the end of recovery phase was 136/68 mmHg with a heart rate of 66 bpm. Conclusion: 1. Normal EKG response to Lexiscan infusion 2. No Lexiscan induced chest pain or cardiac arrhythmia. 3. Normal blood pressure and heart rate response. 4. Sestamibi/sestamibi perfusion scan pending; see separate report. Electronically Signed On 02-05-2024 10:19:04 CDT by Cody Irizarry M.D. [id number]
--- NOTE | 2024-01-22 08:54 | NMCV_ITS ---
NM kira perf SPECT r/s* [id number] Betty Lantigua Age: 73 Gender: F : 1950 Exam Date: 01/22/2024 09:43 Ordering Phys: Naren Castle MD Technologist: HEATHER Stark Exam Location: [facility] Indications: CHEST PAIN STRESS TEST Please see separate stress test report in [facility] for full findings IMAGE PROTOCOL Rest/Stress 1 Lexiscan Day Radiopharmaceutical Dose (mCi) Administration Site Administered by Rest: Tc-99m 10.5 IV HEATHER Ceja Sestamibi Stress:Tc-99m 32.3 IV HEATHER Ceja Sestamibi Rest: 22-Jan-2024 60 Discovery 630 Stress: 22-Jan-2024 30 Discovery 630 0.4mg Lexiscan. Images obtained in supine and prone position. SPECT RESULTS Technical Quality: Excellent Raw Data Analysis: Normal Image Corrections: No attenuation or motion correction applied Summed Stress Score: 0 Summed Rest Score: 0 Summed Difference Score: 0 PERFUSION FINDINGS SPECT images demonstrate homogeneous tracer distribution throughout the myocardium. FUNCTIONAL RESULTS (calculated via Gated SPECT) Stress Image LV EF (%): 68 Stress EDV (mL):80 TID: 0.83 Stress ESV (mL):26 FUNCTIONAL FINDINGS: There is normal left ventricular systolic function. IMPRESSIONS 1. Normal myocardial perfusion imaging with no evidence of ischemia 2. LV systolic function is normal Cody Irizarry MD (Electronically Signed) Final Date: 22 January 2024 13:55 S
[2024-01-22 09:17] VITALS: BMI 32.4
[2024-01-22] MEDS: regadenoson 0.4 Mg/5 ml Syringe 0.400000000000000022 MG IVP (10:40)
[2024-01-22] MEDS: ondansetron 2 mg/ML SDV 2 mL 4 MG IVP (10:46)
== END 2024-01-22 08:50 | disposition home or self-care (01) ==
PROVIDERS: Family Provider Thoracic Surgery (Cardiothoracic Vascular Surgery); PCP Family Medicine; Visit Provider Family Medicine
DX: R07.9 Chest pain, unspecified (principal); R06.00 Dyspnea, unspecified
CPT/HCPCS: 36415; 78452; 96375; A9500; J2405; J2785

== ENCOUNTER 2024-01-27 09:03 | Oncology outpatient (recurring) (ONCR) | payer MEDICARE, BC, SELFPAY ==
[2024-01-27 10:23] LABS: Basophils # 0.1 10^3/uL (0.0-0.1); Basophils % 1.2 %; Eosinophils % 0.7 %; Hematocrit 32.7 % (36-47); Lymphocytes # 1.1 10^3/uL (0.8-4.8); Lymphocytes % 20.1 %; Mean Corpuscular HGB Conc 32.7 g/dL (30-55); Mean Corpuscular Hemoglobin 30.7 pg (27-33); Mean Platelet Volume 12.5 fL (7.4-10.4); Monocytes # 0.8 10^3/uL (0.2-0.9); Neutrophils # 3.33 10^3/uL (1.8-7.7); Neutrophils % 59.4 %; Nucleated Red Blood Cells % 0 %; Platelet Count 159 10^3/cmm (157-399); Red Blood Count 3.48 10^6/uL (3.85-5.65); Red Cell Distribution Width 19.2 % (12.1-15.1); White Blood Count 5.61 10^3/uL (3.29-11.43)
[2024-01-27 10:56] LABS: Alanine Aminotransferase 15 U/L (0-33); Alkaline Phosphatase 135 U/L (35-105); Anion Gap 16.6 (5-19); Aspartate Amino Transferase 21 U/L (0-32); Blood Urea Nitrogen 17 mg/dL (8-23); Calcium 9.3 mg/dL (8.5-10.5); Carbon Dioxide 21 mmol/L (22-29); Chloride 107 mmol/L (98-107); Globulin 2.7 g/dL (1.3-4.6); Glucose 126 mg/dL (65-115); Osmolality Calculated 293 mOsm/kg (285-295); Potassium 4.6 mmol/L (3.5-5.1); Sodium 140 mmol/L (136-145); Thyroid Stimulating Hormone 2.09 uIU/mL (0.27-4.20); Total Bilirubin 0.4 mg/dL (0.15-1.2); Total Protein 6.7 g/dL (6.6-8.7)
== END 2024-02-22 23:59 | disposition home or self-care (01) ==
PROVIDERS: Internal Medicine Medical Oncology; Family Provider Thoracic Surgery (Cardiothoracic Vascular Surgery); PCP Family Medicine; Visit Provider Nurse Practitioner Family
DX: C34.92 Malignant neoplasm of unspecified part of left bronchus or lung
CPT/HCPCS: 36591; 80053; 84443; 85025; J1642

== ENCOUNTER 2024-03-10 07:47 | Oncology outpatient (recurring) (ONCR) | payer MEDICARE, BC, SELFPAY ==
[2024-03-10 08:27] LABS: Basophils # 0.1 10^3/uL (0.0-0.1); Basophils % 0.6 %; Eosinophils # 0.2 10^3/uL (0.0-0.8); Eosinophils % 2.7 %; Lymphocytes # 1.3 10^3/uL (0.8-4.8); Lymphocytes % 16.2 %; Mean Corpuscular HGB Conc 32.3 g/dL (30-55); Mean Corpuscular Hemoglobin 32.2 pg (27-33); Mean Corpuscular Volume 99.7 fl (85-98); Mean Platelet Volume 11.9 fL (7.4-10.4); Monocytes # 0.7 10^3/uL (0.2-0.9); Monocytes % 8.8 %; Nucleated Red Blood Cells % 0 %; Platelet Count 179 10^3/cmm (157-399); Red Blood Count 3.11 10^6/uL (3.85-5.65); Red Cell Distribution Width 14.6 % (12.1-15.1); White Blood Count 8.17 10^3/uL (3.29-11.43)
[2024-03-10 08:54] LABS: Alanine Aminotransferase 16 U/L (0-33); Alkaline Phosphatase 136 U/L (35-105); Anion Gap 14.2 (5-19); Aspartate Amino Transferase 22 U/L (0-32); Blood Urea Nitrogen 30 mg/dL (8-23); Calcium 10.3 mg/dL (8.5-10.5); Carbon Dioxide 17 mmol/L (22-29); Chloride 111 mmol/L (98-107); Globulin 2.8 g/dL (1.3-4.6); Glucose 165 mg/dL (65-115); Osmolality Calculated 296 mOsm/kg (285-295); Potassium 4.2 mmol/L (3.5-5.1); Sodium 138 mmol/L (136-145); Thyroid Stimulating Hormone 1.01 uIU/mL (0.27-4.20); Total Bilirubin 0.2 mg/dL (0.15-1.2); Total Protein 6.8 g/dL (6.6-8.7)
[2024-03-10 10:30] LABS: Iron 43 ug/dL (37-145); Magnesium 1.5 mg/dL (1.7-2.3); Total Iron Binding Capacity 238 mcg/dl; Unsaturated Iron Binding 195 ug/dL (112-347)
[2024-03-10 10:45] LABS: Ferritin 1801 ng/mL (15-150); Vitamin B12 644 pg/mL (232-1245)
[2024-03-10 11:15] LABS: Folate Level 7.6 ng/mL (4.8-37.3)
[2024-03-13 12:15] LABS: Methylmalonic Acid 202 nmol/L (87-318)
[2024-03-15 12:45] LABS: Soluble Transferrin Receptor 2.16 mg/L (0.76-1.76)
== END 2024-03-23 23:59 | disposition home or self-care (01) ==
PROVIDERS: Internal Medicine; Family Provider Thoracic Surgery (Cardiothoracic Vascular Surgery); PCP Family Medicine; Visit Provider Nurse Practitioner Family
DX: C34.92 Malignant neoplasm of unspecified part of left bronchus or lung (principal); E11.65 Type 2 diabetes mellitus with hyperglycemia; Z79.899 Other long term (current) drug therapy
CPT/HCPCS: 36591; 80053; 82607; 82728; 82746; 83540; 83550; 83735; 83921; 84238; 84443; 85025; 99215

== ENCOUNTER 2024-03-18 12:12 | Outpatient (CLI) | payer MEDICARE, BC, SELFPAY ==
[2024-03-18] MEDS: iohexol 350 mg/mL 500 mL Btl (per mL) PO (12:53)
[2024-03-18] MEDS: iohexol 350 mg/mL 500 mL Btl (per mL) IV (13:28)
--- NOTE | 2024-03-18 13:30 | CT_ITS ---
WS: [id number] CT CHEST, ABDOMEN AND PELVIS WITH CONTRAST HISTORY: adenocarcinoma of left lung TECHNIQUE: Contiguous 5 mm axial imaging performed through the chest, abdomen and pelvis with IV cont rast, oral contrast has been provided. Coronal and sagittal reformats chest. Coronal and sagittal ref ormats through the abdomen and pelvis. All CT scans at [facility] use at least one of these d ose optimization techniques: automated exposure control; mA and/or kV adjustment per patient size (in cludes targeted exams where dose is matched to clinical indication); or iterative reconstruction. CONTRAST: Omnipaque 350; 100 mL IV. DLP: 1031.41 mGy.cm COMPARISON: PET/CT 10/14/2023, chest CT 01/04/2024 and 09/19/[address]: Status post LEFT upper lobectomy. There is volume loss in the LEFT thorax. There is a small circumferential pleural effusion which is new since the prior examination and may be related to surg merlene and treatment. There is a single 4 mm pulmonary nodule central RIGHT lung, image 34 series 4. No additional pulmonary nodule. No mass or pneumonia. Aberrant RIGHT subclavian artery. Mild atheroscler osis aorta. Normal opacification of the central pulmonary arteries. No mediastinal or hilar adenopath y. No axillary adenopathy. Heart is slightly enlarged. Soft tissue tracts in the posterior LEFT lower thorax. Tracts from prior surgical entry points or chest tubes. Abdomen CT: No metastatic disease to the liver. Normal portal vein. Normal pancreas and spleen. No ad renal mass. Normal gallbladder. No renal obstruction. Several cysts with the LEFT kidney. Largest cys t from the upper pole contains wall calcification. This complex cyst measures 5.8 x 5.7 cm. Additiona l smaller cysts within the LEFT kidney. Moderate atherosclerosis aorta. Normally distended stomach. No small bowel obstruction. No GI tract obstruction. No adenopathy or asc ites. Pelvic CT: No free fluid. Prior hysterectomy. L4 mild compression deformity. IMPRESSION: 1. Status post LEFT upper lobectomy. 2. Small residual LEFT pleural effusion. 3. No mediastinal or hilar adenopathy. No pulmonary mass. 4. No metastatic disease to the liver or adrenal glands.
== END 2024-03-18 12:13 | disposition home or self-care (01) ==
LOC: RAD 12:12
PROVIDERS: Family Provider Thoracic Surgery (Cardiothoracic Vascular Surgery); PCP Family Medicine; Visit Provider Internal Medicine
DX: C34.92 Malignant neoplasm of unspecified part of left bronchus or lung (principal); J90 Pleural effusion, not elsewhere classified; R91.1 Solitary pulmonary nodule; Z90.2 Acquired absence of lung [part of]
CPT/HCPCS: 71260; 74177; Q9967

== ENCOUNTER → 2024-03-31 13:54 | Outpatient (BNVA) | payer MEDICARE, BC, SELFPAY | PROVIDERS: Family Provider Thoracic Surgery (Cardiothoracic Vascular Surgery); PCP Family Medicine; Visit Provider Internal Medicine Pulmonary Disease | DX: C34.92 Malignant neoplasm of unspecified part of left bronchus or lung (principal); J82.83 Eosinophilic asthma | CPT/HCPCS: 99214 ==

== ENCOUNTER 2024-04-07 10:27 | Oncology outpatient (recurring) (ONCR) | payer MEDICARE, BC, SELFPAY ==
[2024-04-07 11:17] LABS: Basophils # 0.1 10^3/uL (0.0-0.1); Basophils % 0.6 %; Eosinophils # 0.1 10^3/uL (0.0-0.8); Eosinophils % 1.6 %; Hematocrit 34.9 % (36-47); Lymphocytes # 1.5 10^3/uL (0.8-4.8); Lymphocytes % 18.6 %; Mean Corpuscular HGB Conc 33.2 g/dL (30-55); Mean Corpuscular Volume 96.1 fl (85-98); Mean Platelet Volume 12.6 fL (7.4-10.4); Monocytes # 0.8 10^3/uL (0.2-0.9); Monocytes % 9.4 %; Neutrophils # 5.67 10^3/uL (1.8-7.7); Neutrophils % 69.1 %; Nucleated Red Blood Cells % 0 %; Platelet Count 162 10^3/cmm (157-399); Red Blood Count 3.63 10^6/uL (3.85-5.65); Red Cell Distribution Width 13.1 % (12.1-15.1); White Blood Count 8.21 10^3/uL (3.29-11.43)
[2024-04-07 11:38] LABS: Alanine Aminotransferase 20 U/L (0-33); Albumin Level 4.3 g/dL (3.5-5.2); Alkaline Phosphatase 111 U/L (35-105); Anion Gap 16.3 (5-19); Aspartate Amino Transferase 26 U/L (0-32); Blood Urea Nitrogen 19 mg/dL (8-23); Calcium 9.7 mg/dL (8.5-10.5); Carbon Dioxide 23 mmol/L (22-29); Chloride 106 mmol/L (98-107); Globulin 3.2 g/dL (1.3-4.6); Glucose 117 mg/dL (65-115); Magnesium 1.5 mg/dL (1.7-2.3); Osmolality Calculated 295 mOsm/kg (285-295); Potassium 4.3 mmol/L (3.5-5.1); Sodium 141 mmol/L (136-145); Total Bilirubin 0.3 mg/dL (0.15-1.2); Total Protein 7.5 g/dL (6.6-8.7)
== END 2024-04-23 23:59 | disposition home or self-care (01) ==
LOC: ONCMED 10:28
PROVIDERS: Family Provider Thoracic Surgery (Cardiothoracic Vascular Surgery); PCP Family Medicine; Visit Provider Nurse Practitioner Family
DX: C34.92 Malignant neoplasm of unspecified part of left bronchus or lung (principal); E11.65 Type 2 diabetes mellitus with hyperglycemia; Z79.899 Other long term (current) drug therapy
CPT/HCPCS: 36591; 80053; 83735; 85025; 99215

== ENCOUNTER → 2024-04-15 12:22 | Outpatient (BNVA) | payer MEDICARE, BC, SELFPAY | PROVIDERS: Family Provider Thoracic Surgery (Cardiothoracic Vascular Surgery); PCP Family Medicine; Visit Provider Family Medicine | DX: C34.92 Malignant neoplasm of unspecified part of left bronchus or lung (principal) | CPT/HCPCS: 93005 ==

== ENCOUNTER 2024-04-20 06:17 | Outpatient (CLI) | payer MEDICARE, BC, SELFPAY ==
--- NOTE | 2024-04-20 06:30 | USCV_ITS ---
Betty Lantigua Age: 73 Gender: F : 1950 Exam Date: 04/20/2024 06:29 Ordering Phys: Alisson Chambers APRN Technologist: JEANNA Exam Location: [facility] Indication: New medication requiring ekg and echo prior to treatment BP: / HR: 59 Rhythm: Sinus Technical Quality: MEASUREMENTS (Male / Female) Normal Values 2D ECHO LV Diastolic Diameter PLAX 3.8 cm 4.2 - 5.9 / 3.9 - 5.3 cm IVS Diastolic Thickness 1.2 cm 0.6 - 1.0 / 0.6 - 0.9 cm IVS Systolic Thickness 1.5 cm LVPW Diastolic Thickness 1.1 cm 0.6 - 1.0 / 0.6 - 0.9 cm LVPW Systolic Thickness 1.4 cm LVOT Diameter 2.0 cm LV Ejection Fraction 2D Teich 73.0 % LV Ejection Fraction MOD 2C 28.5 % LV Ejection Fraction 2C AL 29.6 % LA Diameter 2.6 cm RA Systolic Volume 4C AL 9.5 ml RA Systolic Volume 4C MOD 9.2 ml LA Sys Volume AL 22.1 cm cubed LA Sys Volume Index AL 11.4 cm cubed/m squared Aorta at Sinotubular Diameter 3.1 cm IVC Diameter 2.1 cm M-MODE LA Ao Ratio MM 1.0 AV Cusp Separation MM 1.7 cm DOPPLER AV Peak Velocity 127.0 cm/s LVOT Peak Velocity 104.0 cm/s AV Area Cont Eq vti 2.8 cm squared AV Area Cont Eq pk 2.6 cm squared MV Area PHT 1.9 cm squared Mitral E to A Ratio 0.6 TV Peak Velocity 129.5 cm/s TR Peak Velocity 152.0 cm/s TR Peak Gradient 9.2 mmHg TR Mean Velocity 123.0 cm/s TR Mean Gradient 6.6 mmHg TR Velocity Time Integral 42.8 cm Right Atrial Pressure 3.0 mmHg Pulmonary Artery Systolic Pressu 12.2 mmHg PV Peak Velocity 102.0 cm/s RV Ejection Time 0.4 s FINDINGS Left Ventricle Left ventricle is normal in size. LV systolic function is normal with EF of 55-60%. No regional wall motion abnormalities. Grade 1 diastolic dysfunction Right Ventricle Normal size and function Right Atrium Normal in size Left Atrium Normal in size Mitral Valve Structurally normal mitral valve. Mild mitral regurgitation. Aortic Valve Aortic valve is thickened. No significant stenosis or regurgitation. Tricuspid Valve Insufficient TR jet to calculate RVSP. Pulmonic Valve Not well-visualized. Pericardium Normal Aorta Mildly dilated ascending aorta IVC Grossly normal CONCLUSIONS LV systolic function is normal with EF of 55-60% Grade 1 diastolic dysfunction Mild mitral regurgitation. Cody Irizarry MD (Electronically Signed) Final Date: 26 April 2024 14:12 S
== END 2024-04-20 06:18 | disposition home or self-care (01) ==
LOC: RAD 06:17
PROVIDERS: Family Provider Thoracic Surgery (Cardiothoracic Vascular Surgery); PCP Family Medicine; Visit Provider Nurse Practitioner Family
DX: C34.92 Malignant neoplasm of unspecified part of left bronchus or lung (principal); I50.30 Unspecified diastolic (congestive) heart failure
CPT/HCPCS: 93306

== ENCOUNTER 2024-05-20 15:00 | Oncology outpatient (recurring) (ONCR) | payer MEDICARE, BC, SELFPAY ==
[2024-05-06 15:21] LABS: Basophils % 0.6 %; Eosinophils # 0.2 10^3/uL (0.0-0.8); Eosinophils % 2.7 %; Hematocrit 34.4 % (36-47); Lymphocytes # 1.4 10^3/uL (0.8-4.8); Lymphocytes % 19.3 %; Mean Corpuscular HGB Conc 32.8 g/dL (30-55); Mean Corpuscular Volume 94.2 fl (85-98); Mean Platelet Volume 13.8 fL (7.4-10.4); Monocytes # 0.6 10^3/uL (0.2-0.9); Monocytes % 8.9 %; Neutrophils # 4.82 10^3/uL (1.8-7.7); Neutrophils % 67.9 %; Nucleated Red Blood Cells % 0 %; Platelet Count 117 10^3/cmm (157-399); Red Blood Count 3.65 10^6/uL (3.85-5.65); Red Cell Distribution Width 12.7 % (12.1-15.1); White Blood Count 7.09 10^3/uL (3.29-11.43)
[2024-05-06 16:47] LABS: Alanine Aminotransferase 22 U/L (0-33); Albumin Level 4.2 g/dL (3.5-5.2); Alkaline Phosphatase 113 U/L (35-105); Aspartate Amino Transferase 20 U/L (0-32); Blood Urea Nitrogen 26 mg/dL (8-23); Calcium 9.6 mg/dL (8.5-10.5); Carbon Dioxide 21 mmol/L (22-29); Chloride 107 mmol/L (98-107); Globulin 2.6 g/dL (1.3-4.6); Glucose 109 mg/dL (65-115); Osmolality Calculated 293 mOsm/kg (285-295); Sodium 139 mmol/L (136-145); Thyroid Stimulating Hormone 1.41 uIU/mL (0.27-4.20); Total Bilirubin 0.2 mg/dL (0.15-1.2); Total Protein 6.8 g/dL (6.6-8.7)
[2024-05-20 15:09] LABS: Basophils % 0.4 %; Eosinophils # 0.2 10^3/uL (0.0-0.8); Eosinophils % 2.3 %; Lymphocytes # 1.6 10^3/uL (0.8-4.8); Mean Corpuscular HGB Conc 34.8 g/dL (30-55); Mean Corpuscular Hemoglobin 31.4 pg (27-33); Mean Corpuscular Volume 90.2 fl (85-98); Mean Platelet Volume 12.9 fL (7.4-10.4); Monocytes # 0.8 10^3/uL (0.2-0.9); Monocytes % 9.4 %; Neutrophils # 5.61 10^3/uL (1.8-7.7); Neutrophils % 68.5 %; Nucleated Red Blood Cells % 0 %; Platelet Count 85 10^3/cmm (157-399); Red Blood Count 3.66 10^6/uL (3.85-5.65); Red Cell Distribution Width 12.8 % (12.1-15.1); White Blood Count 8.19 10^3/uL (3.29-11.43)
[2024-05-20 15:26] LABS: Alanine Aminotransferase 20 U/L (0-33); Albumin Level 4.3 g/dL (3.5-5.2); Alkaline Phosphatase 121 U/L (35-105); Anion Gap 12.9 (5-19); Aspartate Amino Transferase 21 U/L (0-32); Blood Urea Nitrogen 18 mg/dL (8-23); Calcium 10.1 mg/dL (8.5-10.5); Carbon Dioxide 21 mmol/L (22-29); Chloride 109 mmol/L (98-107); Globulin 2.9 g/dL (1.3-4.6); Glucose 86 mg/dL (65-115); Osmolality Calculated 289 mOsm/kg (285-295); Potassium 3.9 mmol/L (3.5-5.1); Sodium 139 mmol/L (136-145); Total Bilirubin 0.3 mg/dL (0.15-1.2); Total Protein 7.2 g/dL (6.6-8.7)
== END 2024-05-23 23:59 | disposition home or self-care (01) ==
PROVIDERS: Internal Medicine Medical Oncology; Family Provider Thoracic Surgery (Cardiothoracic Vascular Surgery); PCP Family Medicine; Visit Provider Nurse Practitioner Family
DX: Z53.9 Procedure and treatment not carried out, unspecified reason (principal); C34.92 Malignant neoplasm of unspecified part of left bronchus or lung
CPT/HCPCS: 36591; 80053; 84443; 85025

== ENCOUNTER 2024-05-31 08:09 | Outpatient (CLI) | payer MEDICARE, BC, SELFPAY ==
--- NOTE | 2024-05-31 08:30 | CTR_ITS ---
PROCEDURE INFORMATION: Exam: CT Chest Without Contrast; Diagnostic Exam date and time: 05/31/2024 8:36 AM Age: 73 years old Clinical indication: Condition or disease; Other: Adenocarcinoma, prior surgery; Surgery date: 6+ months; Surgery type: Left lobectomy TECHNIQUE: Imaging protocol: Diagnostic computed tomography of the chest without contrast. Radiation optimization: All CT scans at this facility use at least one of these dose optimization techniques: automated exposure control; mA and/or kV adjustment per patient size (includes targeted exams where dose is matched to clinical indication); or iterative reconstruction. COMPARISON: CT chest abdpel w/*[id number] 03/18/2024 1:24 PM RADIATION DOSE METRICS: Total DLP (mGy-cm): 1200.59 FINDINGS: Lungs: Post left upper lobectomy with volume loss and scarring. No residual or recurrent neoplastic disease. Stable 4 mm right lung pulmonary nodule (3-31). Pleural spaces: Unremarkable. No pneumothorax. No pleural effusion. Heart: Unremarkable. No cardiomegaly. No pericardial effusion. Coronary arteries: Coronary artery calcifications. Lymph nodes: Unremarkable. No enlarged lymph nodes. Vasculature: Unremarkable. No aortic aneurysm. Diaphragm: Small hiatal hernia. Spleen: 13 cm splenomegaly. Kidneys and ureters: Incompletely imaged left renal cyst with mural calcification. Bones/joints: Unremarkable. No acute fracture. Soft tissues: Unremarkable. CT/CT chest wo con [id number] IMPRESSION: No significant change. COMMENTS: Consistent with the [employer]'s Incidental Findings Committee white paper (J Am Timoteo Radiol 2018): Any incidental renal lesion less than 1 cm or classified as too small to characterize, or any incidental cystic renal lesion characterized as simple-appearing, is likely benign. No follow-up imaging is recommended for these lesions per consensus recommendations based on imaging criteria.
== END 2024-05-31 08:10 | disposition home or self-care (01) ==
LOC: RAD 08:09
PROVIDERS: Family Provider Thoracic Surgery (Cardiothoracic Vascular Surgery); PCP Family Medicine; Visit Provider Internal Medicine
DX: C34.92 Malignant neoplasm of unspecified part of left bronchus or lung (principal); Z90.2 Acquired absence of lung [part of]; R91.1 Solitary pulmonary nodule; I25.84 Coronary atherosclerosis due to calcified coronary lesion; K44.9 Diaphragmatic hernia without obstruction or gangrene; R16.1 Splenomegaly, not elsewhere classified; N28.1 Cyst of kidney, acquired
CPT/HCPCS: 71250

== ENCOUNTER 2024-06-08 09:00 | Oncology outpatient (recurring) (ONCR) | payer MEDICARE, BC, SELFPAY ==
[2024-05-26 12:49] LABS: Basophils % 0.5 %; Eosinophils # 0.2 10^3/uL (0.0-0.8); Eosinophils % 2.8 %; Hematocrit 33.5 % (36-47); Lymphocytes # 1.2 10^3/uL (0.8-4.8); Lymphocytes % 16.8 %; Mean Corpuscular HGB Conc 34.3 g/dL (30-55); Mean Corpuscular Volume 90.3 fl (85-98); Mean Platelet Volume 13.2 fL (7.4-10.4); Monocytes # 0.5 10^3/uL (0.2-0.9); Monocytes % 6.9 %; Neutrophils # 5.32 10^3/uL (1.8-7.7); Neutrophils % 72.3 %; Nucleated Red Blood Cells % 0 %; Platelet Count 78 10^3/cmm (157-399); Red Blood Count 3.71 10^6/uL (3.85-5.65); Red Cell Distribution Width 13.2 % (12.1-15.1); White Blood Count 7.37 10^3/uL (3.29-11.43)
[2024-05-26 13:06] LABS: Alanine Aminotransferase 13 U/L (0-33); Albumin Level 4.2 g/dL (3.5-5.2); Alkaline Phosphatase 110 U/L (35-105); Anion Gap 14.1 (5-19); Aspartate Amino Transferase 16 U/L (0-32); Blood Urea Nitrogen 18 mg/dL (8-23); Calcium 9.5 mg/dL (8.5-10.5); Carbon Dioxide 21 mmol/L (22-29); Chloride 109 mmol/L (98-107); Globulin 2.8 g/dL (1.3-4.6); Glucose 91 mg/dL (65-115); Osmolality Calculated 291 mOsm/kg (285-295); Potassium 4.1 mmol/L (3.5-5.1); Sodium 140 mmol/L (136-145); Total Bilirubin 0.3 mg/dL (0.15-1.2)
[2024-06-08 09:03] LABS: Basophils % 0.6 %; Eosinophils # 0.2 10^3/uL (0.0-0.8); Eosinophils % 3.4 %; Lymphocytes # 1.3 10^3/uL (0.8-4.8); Mean Corpuscular HGB Conc 33.5 g/dL (30-55); Mean Corpuscular Hemoglobin 30.2 pg (27-33); Mean Corpuscular Volume 90.2 fl (85-98); Mean Platelet Volume 12.8 fL (7.4-10.4); Monocytes # 0.7 10^3/uL (0.2-0.9); Monocytes % 9.4 %; Neutrophils # 4.78 10^3/uL (1.8-7.7); Neutrophils % 67.9 %; Nucleated Red Blood Cells % 0 %; Platelet Count 124 10^3/cmm (157-399); Red Cell Distribution Width 13.2 % (12.1-15.1); White Blood Count 7.04 10^3/uL (3.29-11.43)
[2024-06-08 09:23] LABS: Alanine Aminotransferase 18 U/L (0-33); Albumin Level 4.3 g/dL (3.5-5.2); Alkaline Phosphatase 112 U/L (35-105); Anion Gap 17.1 (5-19); Aspartate Amino Transferase 19 U/L (0-32); Blood Urea Nitrogen 17 mg/dL (8-23); Calcium 10.4 mg/dL (8.5-10.5); Carbon Dioxide 21 mmol/L (22-29); Chloride 104 mmol/L (98-107); Creatinine Clr Calc Pharmacy 46.8224; Glucose 113 mg/dL (65-115); Osmolality Calculated 288 mOsm/kg (285-295); Potassium 4.1 mmol/L (3.5-5.1); Sodium 138 mmol/L (136-145); Total Bilirubin 0.4 mg/dL (0.15-1.2); Total Protein 7.3 g/dL (6.6-8.7)
== END 2024-06-23 23:59 | disposition home or self-care (01) ==
PROVIDERS: Internal Medicine; Family Provider Thoracic Surgery (Cardiothoracic Vascular Surgery); PCP Family Medicine; Visit Provider Nurse Practitioner Family
DX: C34.92 Malignant neoplasm of unspecified part of left bronchus or lung (principal); Z53.9 Procedure and treatment not carried out, unspecified reason; Z79.899 Other long term (current) drug therapy
CPT/HCPCS: 36591; 80053; 85025; 99213; 99214

== ENCOUNTER → 2024-06-15 10:30 | Outpatient (BNVA) | payer MEDICARE, BC, SELFPAY | PROVIDERS: Family Provider Thoracic Surgery (Cardiothoracic Vascular Surgery); PCP Family Medicine; Referring Provider Nurse Practitioner Family; Visit Provider Internal Medicine Cardiovascular Disease | DX: R00.1 Bradycardia, unspecified (principal); I10 Essential (primary) hypertension; E78.5 Hyperlipidemia, unspecified; C34.92 Malignant neoplasm of unspecified part of left bronchus or lung | CPT/HCPCS: 99203 ==

== ENCOUNTER 2024-07-20 11:15 | Oncology outpatient (recurring) (ONCR) | payer MEDICARE, BC, SELFPAY ==
[2024-07-07 13:15] LABS: Basophils % 0.4 %; Eosinophils # 0.1 10^3/uL (0.0-0.8); Eosinophils % 1.8 %; Hematocrit 35.1 % (36-47); Lymphocytes # 1.3 10^3/uL (0.8-4.8); Lymphocytes % 18.1 %; Mean Corpuscular HGB Conc 33.6 g/dL (30-55); Mean Corpuscular Volume 92.1 fl (85-98); Mean Platelet Volume 12.9 fL (7.4-10.4); Monocytes # 0.5 10^3/uL (0.2-0.9); Monocytes % 6.8 %; Neutrophils # 5.35 10^3/uL (1.8-7.7); Neutrophils % 72.2 %; Nucleated Red Blood Cells % 0 %; Platelet Count 97 10^3/cmm (157-399); Red Blood Count 3.81 10^6/uL (3.85-5.65); Red Cell Distribution Width 13.6 % (12.1-15.1)
[2024-07-07 13:30] LABS: Alanine Aminotransferase 20 U/L (0-33); Albumin Level 4.2 g/dL (3.5-5.2); Alkaline Phosphatase 121 U/L (35-105); Anion Gap 15.8 (5-19); Aspartate Amino Transferase 23 U/L (0-32); Blood Urea Nitrogen 21 mg/dL (8-23); Calcium 9.4 mg/dL (8.5-10.5); Carbon Dioxide 19 mmol/L (22-29); Chloride 108 mmol/L (98-107); Glucose 147 mg/dL (65-115); Osmolality Calculated 294 mOsm/kg (285-295); Potassium 3.8 mmol/L (3.5-5.1); Sodium 139 mmol/L (136-145); Total Bilirubin 0.3 mg/dL (0.15-1.2); Total Protein 7.2 g/dL (6.6-8.7)
[2024-07-07 15:09] LABS: Magnesium 1.9 mg/dL (1.7-2.3)
[2024-07-20 11:16] LABS: Basophils % 0.6 %; Eosinophils # 0.2 10^3/uL (0.0-0.8); Eosinophils % 2.7 %; Lymphocytes # 1.5 10^3/uL (0.8-4.8); Lymphocytes % 22.7 %; Mean Corpuscular HGB Conc 33.8 g/dL (30-55); Mean Corpuscular Hemoglobin 30.7 pg (27-33); Mean Corpuscular Volume 90.7 fl (85-98); Mean Platelet Volume 12.4 fL (7.4-10.4); Monocytes # 0.6 10^3/uL (0.2-0.9); Monocytes % 9.5 %; Neutrophils # 4.09 10^3/uL (1.8-7.7); Neutrophils % 63.9 %; Nucleated Red Blood Cells % 0 %; Platelet Count 117 10^3/cmm (157-399); Red Blood Count 3.75 10^6/uL (3.85-5.65)
[2024-07-20 11:34] LABS: Alanine Aminotransferase 13 U/L (0-33); Albumin Level 4.2 g/dL (3.5-5.2); Alkaline Phosphatase 126 U/L (35-105); Aspartate Amino Transferase 15 U/L (0-32); Blood Urea Nitrogen 19 mg/dL (8-23); Calcium 9.9 mg/dL (8.5-10.5); Carbon Dioxide 17 mmol/L (22-29); Chloride 112 mmol/L (98-107); Creatinine Clr Calc Pharmacy 38.9173; Globulin 3.1 g/dL (1.3-4.6); Glucose 102 mg/dL (65-115); Osmolality Calculated 290 mOsm/kg (285-295); Sodium 139 mmol/L (136-145); Total Bilirubin 0.3 mg/dL (0.15-1.2); Total Protein 7.3 g/dL (6.6-8.7)
[2024-07-20 13:42] LABS: Magnesium 1.8 mg/dL (1.7-2.3)
[2024-07-20 15:01] LABS: Vitamin B12 402 pg/mL (232-1245)
== END 2024-07-24 23:59 | disposition home or self-care (01) ==
PROVIDERS: Internal Medicine Medical Oncology; Nurse Practitioner Family; Family Provider Thoracic Surgery (Cardiothoracic Vascular Surgery); PCP Family Medicine; Visit Provider Nurse Practitioner Family
DX: C34.12 Malignant neoplasm of upper lobe, left bronchus or lung (principal); Z53.9 Procedure and treatment not carried out, unspecified reason; D64.9 Anemia, unspecified; E83.42 Hypomagnesemia; R42 Dizziness and giddiness; Z79.899 Other long term (current) drug therapy
CPT/HCPCS: 36415; 36591; 80053; 82607; 83735; 85025; 99214

== ENCOUNTER → 2024-08-09 15:33 | Outpatient (BNVA) | payer MEDICARE, BC, SELFPAY | PROVIDERS: Family Provider Thoracic Surgery (Cardiothoracic Vascular Surgery); PCP Family Medicine; Visit Provider Family Medicine | DX: E11.9 Type 2 diabetes mellitus without complications (principal); E55.9 Vitamin D deficiency, unspecified | CPT/HCPCS: 82306; 83036 ==

== ENCOUNTER 2024-08-12 13:10 | Outpatient (CLI) | payer MEDICARE, BC, SELFPAY ==
--- NOTE | 2024-08-12 13:30 | MM_ITS ---
WS: [id number] BILATERAL 3D TOMOSYNTHESIS DIGITAL DIAGNOSTIC MAMMOGRAPHY WITH CAD CLINICAL INFORMATION: mammogram, breast cancer HISTORY: LEFT breast pain COMPARISON: 2021 TECHNIQUE: Bilateral CC, MLO, and ML views. FINDINGS: Scattered fibroglandular densities bilaterally. Vascular calcification. Incidental punctate and lucen t centered calcifications. ULTRASOUND BREAST LEFT TECHNIQUE: Ultrasound left breast focused area of concern. CLINICAL INFORMATION: mammogram, breast cancer FINDINGS: Ultrasound LEFT breast area of pain 4-7 o'clock position 4 cm from the nipple. Normal underlying pare nchymal tissue. No cystic or solid lesions. No suspicious lesions to target for biopsy. Recommend ret urn to annual screening mammography. MM/MM diag BI tomosynthesis [id number] IMPRESSION: DENSITY: There are scattered areas of fibroglandular density. BI-RADS: 2 - Benign. FOLLOW UP: 1 Year Follow-up Recommend return to annual screening mammography.
--- NOTE | 2024-08-12 13:46 | US_ITS ---
WS: [id number] BILATERAL 3D TOMOSYNTHESIS DIGITAL DIAGNOSTIC MAMMOGRAPHY WITH CAD CLINICAL INFORMATION: mammogram, breast cancer HISTORY: LEFT breast pain COMPARISON: 2021 TECHNIQUE: Bilateral CC, MLO, and ML views. FINDINGS: Scattered fibroglandular densities bilaterally. Vascular calcification. Incidental punctate and lucen t centered calcifications. ULTRASOUND BREAST LEFT TECHNIQUE: Ultrasound left breast focused area of concern. CLINICAL INFORMATION: mammogram, breast cancer FINDINGS: Ultrasound LEFT breast area of pain 4-7 o'clock position 4 cm from the nipple. Normal underlying pare nchymal tissue. No cystic or solid lesions. No suspicious lesions to target for biopsy. Recommend ret urn to annual screening mammography. US/US breast LT limited* [id number] IMPRESSION: DENSITY: There are scattered areas of fibroglandular density. BI-RADS: 2 - Benign. FOLLOW UP: 1 Year Follow-up Recommend return to annual screening mammography.
== END 2024-08-12 13:11 | disposition home or self-care (01) ==
LOC: RAD 13:10
PROVIDERS: Family Provider Thoracic Surgery (Cardiothoracic Vascular Surgery); PCP Family Medicine; Visit Provider Internal Medicine Medical Oncology
DX: C34.92 Malignant neoplasm of unspecified part of left bronchus or lung (principal); R92.323 Mammographic fibroglandular density, bilateral breasts; R92.1 Mammographic calcification found on diagnostic imaging of breast
CPT/HCPCS: 76642; 77062; G0279

== ENCOUNTER 2024-08-17 08:41 | Outpatient (CLI) | payer MEDICARE, BC, SELFPAY ==
--- NOTE | 2024-08-17 09:15 | CT_ITS ---
WS: [id number] CT CHEST TECHNIQUE: Contrast enhanced CT of the chest with coronal and sagittal reformatted images. CLINICAL INFORMATION: lung cancer COMPARISON: None. DLP: 389.[address] scans at [facility] use at least one of these dose optimization techniques: automated e xposure control; mA and/or kV adjustment per patient size (includes targeted exams where dose is matc hed to clinical indication); or iterative reconstruction. FINDINGS: Cardiomegaly.Aberrant LEFT subclavian artery. Aortic calcification. Coronary calcification. Prior pos toperative changes LEFT lung with LEFT upper lobectomy. Volume loss LEFT lung. Stable 4 mm nodule RIG HT middle lobe. No axillary lymphadenopathy. Small LEFT thyroid nodule measuring 7 mm. Surgical clips about the LEFT hilum. No mediastinal or hilar lymphadenopathy. Small esophageal hiatal hernia. Splenic artery calcification. Adrenal glands are normal. Mild thoraci c curve. Moderate thoracic kyphosis. RIGHT central venous catheter. CT/CT chest w con* [id number] IMPRESSION: 1. No evidence of residual/recurrent lung neoplasm. 2. Prior postoperative changes LEFT upper lobectomy. 3. No mediastinal or hilar lymphadenopathy. 4. Stable 4 mm nodule RIGHT middle lobe. 5. Aberrant RIGHT subclavian artery. 6. Small esophageal hiatal hernia.
[2024-08-17] MEDS: iohexol 350 mg/mL 500 mL Btl (per mL) IV (09:34)
== END 2024-08-17 08:42 | disposition home or self-care (01) ==
LOC: RAD 08:41
PROVIDERS: Family Provider Thoracic Surgery (Cardiothoracic Vascular Surgery); PCP Family Medicine; Visit Provider Internal Medicine Medical Oncology
DX: C34.92 Malignant neoplasm of unspecified part of left bronchus or lung (principal); I51.7 Cardiomegaly; Q25.48 Anomalous origin of subclavian artery; I70.0 Atherosclerosis of aorta; I25.84 Coronary atherosclerosis due to calcified coronary lesion; Z98.890 Other specified postprocedural states; R91.1 Solitary pulmonary nodule; E04.1 Nontoxic single thyroid nodule; D73.89 Other diseases of spleen; M40.204 Unspecified kyphosis, thoracic region; Z95.9 Presence of cardiac and vascular implant and graft, unspecified
CPT/HCPCS: 71260

== ENCOUNTER 2024-08-17 09:45 | Oncology outpatient (recurring) (ONCR) | payer MEDICARE, BC, SELFPAY | END 2024-08-23 23:59 | disposition home or self-care (01) | PROVIDERS: Family Provider Thoracic Surgery (Cardiothoracic Vascular Surgery); PCP Family Medicine; Visit Provider Nurse Practitioner Family | DX: Z45.2 Encounter for adjustment and management of vascular access device (principal); C34.92 Malignant neoplasm of unspecified part of left bronchus or lung; I51.7 Cardiomegaly; Q25.48 Anomalous origin of subclavian artery; I70.0 Atherosclerosis of aorta; I25.84 Coronary atherosclerosis due to calcified coronary lesion; Z98.890 Other specified postprocedural states; R91.1 Solitary pulmonary nodule; E04.1 Nontoxic single thyroid nodule; D73.89 Other diseases of spleen; M40.204 Unspecified kyphosis, thoracic region; Z95.9 Presence of cardiac and vascular implant and graft, unspecified | CPT/HCPCS: 96523; 99214 ==

== ENCOUNTER 2024-08-19 13:09 | Outpatient (CLI) | payer MEDICARE, BC, SELFPAY ==
--- NOTE | 2024-08-19 13:45 | MR_ITS ---
WS: [id number] MRI BRAIN WITH AND WITHOUT CONTRAST HISTORY: lung cancer; disequilibrium COMPARISON: 12/03/2023 TECHNIQUE: Multiplanar imaging performed through the brain with MultiHance 17 ml's IV. No acute infarcts are seen. Springer-white matter differentiation is well preserved. Moderate symmetric a trophy and mild small vessel ischemic disease. Small lacunar infarct in the RIGHT basal ganglia. Mild hippocampal atrophy. No large territory infarct. Ventricles and extra-axial spaces are normal. Clivus and pituitary gland are normal. Visualized posterior fossa and brainstem are also normal. Postcontrast images are negative for masses or vascular malformations. Dural venous sinuses are normal. Paranasal sinuses: Well aerated with no significant disease. Mastoid air cells: Normal. Calvarium and scalp: Normal. MR/MR head wo/w con [id number] IMPRESSION: 1. No metastatic disease to the brain. 2. No acute infarct. 3. Moderate atrophy and mild small vessel ischemic disease. Similar to 12/03/19 24.
[2024-08-19] MEDS: gadobenate dimeglumine 20 mL vial 17 ML IV (15:22)
== END 2024-08-19 13:10 | disposition home or self-care (01) ==
LOC: RAD 13:10
PROVIDERS: Family Provider Thoracic Surgery (Cardiothoracic Vascular Surgery); PCP Family Medicine; Visit Provider Internal Medicine Medical Oncology
DX: C34.12 Malignant neoplasm of upper lobe, left bronchus or lung (principal); G31.9 Degenerative disease of nervous system, unspecified; R42 Dizziness and giddiness
CPT/HCPCS: 70553

== ENCOUNTER → 2024-09-01 13:48 | Outpatient (BNVA) | payer MEDICARE, BC, SELFPAY | PROVIDERS: Family Provider Thoracic Surgery (Cardiothoracic Vascular Surgery); PCP Family Medicine; Referring Provider Internal Medicine Medical Oncology; Visit Provider Surgery | DX: Z12.11 Encounter for screening for malignant neoplasm of colon (principal) | CPT/HCPCS: 99024; 99204 ==

== ENCOUNTER 2024-09-20 08:30 | Oncology outpatient (recurring) (ONCR) | payer MEDICARE, BC, SELFPAY ==
[2024-09-08 13:06] LABS: Basophils # 0.1 10^3/uL (0.0-0.1); Basophils % 0.7 %; Eosinophils # 0.1 10^3/uL (0.0-0.8); Eosinophils % 1.6 %; Lymphocytes # 1.6 10^3/uL (0.8-4.8); Lymphocytes % 20.5 %; Mean Corpuscular HGB Conc 33.4 g/dL (30-55); Mean Corpuscular Hemoglobin 30.8 pg (27-33); Mean Corpuscular Volume 92.2 fl (85-98); Mean Platelet Volume 12.9 fL (7.4-10.4); Monocytes # 0.4 10^3/uL (0.2-0.9); Monocytes % 5.8 %; Neutrophils # 5.39 10^3/uL (1.8-7.7); Neutrophils % 71.1 %; Nucleated Red Blood Cells % 0 %; Platelet Count 98 10^3/cmm (157-399); Red Blood Count 4.12 10^6/uL (3.85-5.65); Red Cell Distribution Width 13.9 % (12.1-15.1); White Blood Count 7.57 10^3/uL (3.29-11.43)
[2024-09-08 13:25] LABS: Alanine Aminotransferase 19 U/L (0-33); Albumin Level 4.6 g/dL (3.5-5.2); Alkaline Phosphatase 118 U/L (35-105); Anion Gap 15.7 (5-19); Aspartate Amino Transferase 18 U/L (0-32); Blood Urea Nitrogen 35 mg/dL (8-23); Calcium 9.9 mg/dL (8.5-10.5); Carbon Dioxide 15 mmol/L (22-29); Chloride 110 mmol/L (98-107); Creatinine Clr Calc Pharmacy 24.7223; Globulin 2.8 g/dL (1.3-4.6); Glucose 155 mg/dL (65-115); Osmolality Calculated 295 mOsm/kg (285-295); Potassium 3.7 mmol/L (3.5-5.1); Sodium 137 mmol/L (136-145); Total Bilirubin 0.3 mg/dL (0.15-1.2); Total Protein 7.4 g/dL (6.6-8.7)
[2024-09-08 16:08] LABS: Bilirubin Urine Negative (Negative); Blood Urine Trace (Negative); Glucose Urine UA Negative (Normal); Ketones Urine Negative (Negative); Leukocyte Esterase Urine 3+ (Negative); Nitrate Urine Negative (Negative); Protein Urine 2+ (Negative); Specific Gravity, Urine 1.017 (1.005-1.030); Urine Appearance Turbid (CLEAR); Urine Color Yellow (Yellow); pH Urine 5.5 (5-7)
[2024-09-08 16:13] LABS: Add Urine Microscopic? YES; Bacteria Urine 2+ /hpf; Hyaline Casts Urine 27.72 /lpf; WBC Urine >100 /hpf (0-5)
[2024-09-08] MEDS: sodium chloride 0.9% 500 ML 999 ML IV (16:13)
[2024-09-08 16:31] LABS: UA Slide Review UA Slide Review Perf
[2024-09-08 16:33] LABS: Add Urine Culture? Yes
[2024-09-08 16:52] VITALS: BP 129/87; PULSE 56; RESP 16; TEMP 36.2; O2SAT 95
[2024-09-20 08:45] LABS: Basophils % 0.5 %; Eosinophils # 0.2 10^3/uL (0.0-0.8); Eosinophils % 2.9 %; Lymphocytes # 1.8 10^3/uL (0.8-4.8); Lymphocytes % 27.6 %; Mean Corpuscular HGB Conc 32.9 g/dL (30-55); Mean Corpuscular Hemoglobin 30.2 pg (27-33); Mean Corpuscular Volume 91.6 fl (85-98); Mean Platelet Volume 13.4 fL (7.4-10.4); Monocytes # 0.5 10^3/uL (0.2-0.9); Monocytes % 7.7 %; Neutrophils # 4.02 10^3/uL (1.8-7.7); Neutrophils % 60.8 %; Nucleated Red Blood Cells % 0 %; Platelet Count 78 10^3/cmm (157-399); Red Blood Count 3.71 10^6/uL (3.85-5.65); Red Cell Distribution Width 13.8 % (12.1-15.1)
[2024-09-20 09:05] LABS: Slide Review Slide Review Perform
[2024-09-20 09:12] LABS: Alanine Aminotransferase 22 U/L (0-33); Alkaline Phosphatase 114 U/L (35-105); Anion Gap 13.7 (5-19); Aspartate Amino Transferase 25 U/L (0-32); Blood Urea Nitrogen 19 mg/dL (8-23); Calcium 9.4 mg/dL (8.5-10.5); Carbon Dioxide 20 mmol/L (22-29); Chloride 108 mmol/L (98-107); Creatinine Clr Calc Pharmacy 45.4389; Globulin 2.5 g/dL (1.3-4.6); Glucose 101 mg/dL (65-115); Osmolality Calculated 288 mOsm/kg (285-295); Potassium 3.7 mmol/L (3.5-5.1); Sodium 138 mmol/L (136-145); Total Bilirubin 0.3 mg/dL (0.15-1.2); Total Protein 6.5 g/dL (6.6-8.7)
== END 2024-09-23 23:59 | disposition home or self-care (01) ==
PROVIDERS: Internal Medicine Medical Oncology; Family Provider Thoracic Surgery (Cardiothoracic Vascular Surgery); PCP Family Medicine; Visit Provider Nurse Practitioner Family
DX: C34.12 Malignant neoplasm of upper lobe, left bronchus or lung (principal); Z53.9 Procedure and treatment not carried out, unspecified reason; R79.89 Other specified abnormal findings of blood chemistry; Z79.899 Other long term (current) drug therapy
CPT/HCPCS: 36591; 80053; 81001; 85025; 87077; 87086; 87186; 96360; 99214; J7040

== ENCOUNTER 2024-09-23 08:09 | Day surgery (SDC) | payer MEDICARE, BC, SELFPAY ==
[2024-09-23 08:12] VITALS: BMI 30.8
--- NOTE | 2024-09-23 08:21 | ANES.PREANE2 ---
Pre-Anesthetic Assessment Height/Weight: Height 1.6 m Weight 78.925 kg Preop Diagnosis: screening Operation Date: 09/23/24 09:00 Proposed Procedures p Colonoscopy 58848, G0105, Z12.11(Not Applicable) - Clarence Valentine MD Familial anesthetic complications: nausea Was Beta Maggie taken within 24 hours: N/A Was Clonidine taken within 24 hours: N/A Social No alcohol and No tobacco Exam alert, oriented x 3, clear to auscultation bilaterally and regular rate & rhythm Airway Submandibular: within normal limits Cervical ROM: within normal limits Mallampati: Class II Dentition: full History/ROS No significant history except as noted and No significant complaints Pulmonary Shortness of Breath Lung cancer CV/HEM Hypertension None reported elevated creatinine Hepatic None reported GI Hiatal Hernia Metabolic Diabetes Mellitus [facility] [place]/[facility] None reported Neuropsych None reported Anesthetic Plan ASA status: 3 Anesthesia: MAC Risk of > 500 ml blood loss (7ml/kg in children): No Medications/Allergies Home Medications Medication Instructions Recorded Confirmed Last Taken Type meclizine 25 mg tablet 25 mg PO QID PRN dizziness #30 tabs 06/01/20 09/22/24 1 Month Ago Rx ~09/19/23 ergocalciferol (vitamin D2) 50 mcg 50 mcg PO BID #180 caps 12/12/22 09/22/24 09/20/24 Rx (2,000 unit) capsule biotin 1 mg capsule 1 mg PO DAILY 09/08/23 09/22/24 09/20/24 History melatonin 3 mg capsule 3 mg PO DAILY 09/08/23 09/22/24 09/20/24 History albuterol sulfate 90 mcg/actuation 2 inh inhalation QID PRN shortness 10/07/23 09/22/24 11/05/23 Rx aerosol inhaler of breath or wheezing #8.5 grams meloxicam 7.5 mg tablet 7.5 mg PO DAILY #7 tabs 11/06/23 09/22/24 Unknown Rx lidocaine-prilocaine 2.5 %-2.5 % 1 applic topical .COMPLEX #30 grams 11/19/23 09/22/24 09/20/24 Rx topical cream Bedside commode #1 ea 12/04/23 09/20/24 Unknown Rx Depends #1 ea 12/04/23 09/20/24 Unknown Rx insulin lispro 100 unit/mL 5 unit (0.05 mL) SUBCUT TID #15 mL 12/04/23 09/22/24 Unknown Rx subcutaneous pen (Humalog KwikPen (U-100) Insulin) pen needle, diabetic 31 gauge x #100 ea 12/04/23 09/20/24 Unknown Rx 5/16 (TechLITE Pen Needle) insulin glargine 100 unit/mL (3 20 unit (0.2 mL) SUBCUT QAM #15 mL 12/05/23 09/22/24 09/21/24 Rx mL) subcutaneous pen (Lantus Solostar U-100 Insulin) pen needle, diabetic 31 gauge x #100 ea 12/05/23 09/20/24 Unknown Rx 5/16 (TechLITE Pen Needle) Diabetic Shoes #1 ea 01/05/24 09/20/24 Unknown Rx vibegron 75 mg tablet (Gemtesa) 75 mg PO DAILY 02/11/24 09/22/24 09/20/24 History blood-glucose meter,continuous #1 ea 03/03/24 09/20/24 Unknown Rx (Dexcom G6 [employer] Chief [employer] Officer) blood-glucose sensor (Dexcom G6 #3 ea 03/03/24 09/20/24 Unknown Rx Sensor device) blood-glucose transmitter (Dexcom #1 ea 03/03/24 09/20/24 Unknown Rx G6 Transmitter device) budesonide 160 mcg-glycopyr 9 2 inh inhalation BID #10.7 grams 03/31/24 09/22/24 09/15/24 Rx mcg-formot 4.8 mcg/actuation HFA inhaler (Breztri Aerosphere) ondansetron HCl 4 mg tablet 4 mg PO Q8H PRN nausea and 04/07/24 09/22/24 Unknown Rx vomiting #60 tabs sertraline 100 mg tablet 100 mg PO DAILY #90 tabs 06/04/24 09/22/24 09/20/24 Rx valsartan 160 mg tablet 160 mg PO DAILY #90 tabs 06/04/24 09/22/24 09/20/24 Rx cetirizine 10 mg tablet 10 mg PO DAILY #30 tabs 06/08/24 09/22/24 09/20/24 Rx famotidine 20 mg tablet (Pepcid) 20 mg PO BID #60 tabs 06/08/24 09/22/24 09/20/24 Rx portable oxygen concentrator and #1 ea 08/04/24 09/20/24 Unknown Rx supplies semaglutide 0.25 mg or 0.5 mg (2 0.25 mg (0.368 mL) SUBCUT .Once a 08/09/24 09/22/24 09/10/24 Rx mg/3 mL) subcutaneous pen injector week #3 mL (Ozempic) cefuroxime axetil 500 mg tablet 500 mg PO BID 7 days #14 tabs 09/13/24 09/22/24 09/20/24 Rx amlodipine 10 mg tablet 10 mg PO DAILY 09/22/24 09/22/24 09/20/24 History apixaban 5 mg tablet (Eliquis) 5 mg PO BID 09/22/24 09/22/24 09/20/24 History osimertinib 80 mg tablet (Tagrisso) 80 mg PO DAILY 09/22/24 09/22/24 09/21/24 History Allergies Allergy/AdvReac Type Severity Reaction Status Date / Time codeine Allergy ADR-Nausea Verified 09/22/24 08:36 shellfish derived Allergy hives/itchi Verified 09/22/24 08:36 [facility] Anesthesia Medical History Blood clot in leg Adenocarcinoma of left lung, stage 3 Left upper lobe - Diagnosed 2022 Dyslipidemia T2DM (type 2 diabetes mellitus) Syncope and collapse The EKG from 06/01/2020 revealed sinus rhythm, minimal left axis deviation, minimal voltage criteria for LVH and some nonspecific T wave changes. Benign essential HTN Glaucoma Labyrinthitis Diabetes Depression Osteoporosis Bradycardia Surgical History S/P lobectomy of lung Left upper lobe - 01/2024 - Stl H/O hysterectomy with oophorectomy Hx of cataract removal with insertion of prosthetic lens Hx of appendectomy Family History Father Colon cancer Other Hypertension Postsurgical cardiac pacemaker in situ Stroke Social History Smoking and tobacco/nicotine status: never used tobacco/nicotine Second hand smoke exposure: Yes Alcohol intake: never Substance/Drug Use: never Data Anesthesia Cardiac Studies: Echocardiogram 04/20/24 Sestamibi Stress Test (Cardiology) 01/22/24
[2024-09-23 08:22] VITALS: BP 126/67; PULSE 62; RESP 18; TEMP 35.9; O2SAT 98
[2024-09-23] MEDS: sodium chloride 0.9% 1,000 ML 30 ML IV (08:41)
[2024-09-23 08:47] LABS: Glucose Point of Care 92 mg/dL (70-110)
--- NOTE | 2024-09-23 08:53 | W.PM.OPSUD ---
Surgery/Procedure H&P Update DATE OF PROCEDURE: September 23, 2024 DATE H&P PERFORMED: 09/01/24 H&P UPDATE INFORMATION: I have reviewed H&P completed within last 30 days, I have examined patient prior to procedure, No changes to prior documentation and H&P is in [facility] EMR on date indicated PREOP DIAGNOSIS: screening PLANNED PROCEDURE: Operation Date: 09/23/24 09:00 Proposed Procedures p Colonoscopy 72201, G0105, Z12.11(Not Applicable) - Clarence Valentine MD
[2024-09-23 09:36] VITALS: BP 100/48; PULSE 56; RESP 18; TEMP 36.2; O2SAT 97
[2024-09-23 10:01] VITALS: BP 100/44; PULSE 48; RESP 16; O2SAT 98
--- NOTE | 2024-09-23 10:13 | ANE.PACU2 ---
Inpatient post-anesthesia follow up: Airway intact: Yes Vital signs: Temperature 97.2 F Pulse Rate 48 Respiratory Rate 16 Blood Pressure 100/44 Pulse Oximetry 98 Oxygen Delivery Me thod Room Air Oxygen Flow Rate Fraction of Inspir ed Oxygen Hydration adequate: Yes Nausea and vomiting: No Pain level: 1 Mental status: Baseline
== END 2024-09-23 10:13 | disposition home or self-care (01) ==
PROVIDERS: PCP Family Medicine; Visit Provider Surgery
PROC: 0DJD8ZZ Inspection of Lower Intestinal Tract, Via Natural or Artificial Opening Endoscopic (ICD-10-PCS; CPT 45378; principal; 2024-09-23 09:00)
DX: Z12.11 Encounter for screening for malignant neoplasm of colon (principal); D12.2 Benign neoplasm of ascending colon; I10 Essential (primary) hypertension; E11.9 Type 2 diabetes mellitus without complications; Z85.118 Personal history of other malignant neoplasm of bronchus and lung; Z79.4 Long term (current) use of insulin; M81.0 Age-related osteoporosis without current pathological fracture
CPT/HCPCS: 36416; 45385; 82962; 88305; J2704; J7030

== ENCOUNTER 2024-09-29 11:10 | Oncology outpatient (recurring) (ONCR) | payer MEDICARE, BC, SELFPAY ==
--- NOTE | 2024-09-24 08:05 | USCV_ITS ---
Betty Lnatigua Age: 73 Gender: F : 1950 Exam Date: 09/24/2024 08:26 Ordering Phys: Alisson Chambers APRN Technologist: CRISTELA Exam Location: [facility] [place] Indication: Hx of thrombus in calf. Eval to stop eliquis HISTORY: Patient has history of thrombus in calf. Appears no priors here so unsure if it was a SVT or DVT PROCEDURES: Venous duplex imaging was performed in only the left lower extremity. The following venous structures were evaluated: common femoral vein, profunda vein, proximal portion of the greater saphenous vein, superficial femoral vein, and the popliteal vein. In addition, the posterior tibial and peroneal trunk were evaluated. Serial compression, augmentation maneuvers, and spectral Doppler flow evaluation were performed. FINDINGS: Normal 2-D Doppler and augmentation and compressibility throughout the lower extremity venous structures. Additional imaging through the proximal calf veins also reveals no thrombus. Limited evaluation of the greater saphenous vein is patent with no thrombus. CONCLUSIONS Limited exam, not all veins are well seen. No DVT seen. Dr. Lorene Davidson DO (Electronically Signed) Final Date: 24 September 2024 09:41 S
[2024-09-29 11:17] LABS: Basophils % 0.6 %; Eosinophils # 0.2 10^3/uL (0.0-0.8); Eosinophils % 2.4 %; Hematocrit 36.5 % (36-47); Lymphocytes # 1.5 10^3/uL (0.8-4.8); Lymphocytes % 21.2 %; Mean Corpuscular HGB Conc 33.2 g/dL (30-55); Mean Corpuscular Hemoglobin 30.3 pg (27-33); Mean Corpuscular Volume 91.3 fl (85-98); Mean Platelet Volume 12.3 fL (7.4-10.4); Monocytes # 0.5 10^3/uL (0.2-0.9); Monocytes % 6.6 %; Neutrophils # 4.82 10^3/uL (1.8-7.7); Neutrophils % 68.6 %; Nucleated Red Blood Cells % 0 %; Platelet Count 106 10^3/cmm (157-399); Red Cell Distribution Width 13.8 % (12.1-15.1); White Blood Count 7.02 10^3/uL (3.29-11.43)
[2024-09-29 11:35] LABS: Alanine Aminotransferase 15 U/L (0-33); Albumin Level 4.3 g/dL (3.5-5.2); Alkaline Phosphatase 101 U/L (35-105); Anion Gap 15.1 (5-19); Aspartate Amino Transferase 17 U/L (0-32); Blood Urea Nitrogen 16 mg/dL (8-23); Calcium 9.6 mg/dL (8.5-10.5); Carbon Dioxide 19 mmol/L (22-29); Chloride 109 mmol/L (98-107); Creatinine Clr Calc Pharmacy 45.3083; Globulin 2.5 g/dL (1.3-4.6); Glucose 124 mg/dL (65-115); Osmolality Calculated 291 mOsm/kg (285-295); Potassium 4.1 mmol/L (3.5-5.1); Sodium 139 mmol/L (136-145); Total Bilirubin 0.3 mg/dL (0.15-1.2); Total Protein 6.8 g/dL (6.6-8.7)
== END 2024-10-23 23:59 | disposition home or self-care (01) ==
PROVIDERS: Family Provider Thoracic Surgery (Cardiothoracic Vascular Surgery); PCP Family Medicine; Visit Provider Nurse Practitioner Family
DX: Z53.9 Procedure and treatment not carried out, unspecified reason; C34.12 Malignant neoplasm of upper lobe, left bronchus or lung; I82.402 Acute embolism and thrombosis of unspecified deep veins of left lower extremity
CPT/HCPCS: 36591; 80053; 85025; 93971; 99214

== ENCOUNTER → 2024-10-20 09:12 | Outpatient (BNVA) | payer MEDICARE, BC, SELFPAY | PROVIDERS: Family Provider Thoracic Surgery (Cardiothoracic Vascular Surgery); PCP Family Medicine; Visit Provider Surgery | DX: Z09 Encounter for follow-up examination after completed treatment for conditions other than malignant neoplasm (principal); R03.0 Elevated blood-pressure reading, without diagnosis of hypertension | CPT/HCPCS: 99213 ==

== ENCOUNTER 2024-11-03 14:06 | Oncology outpatient (recurring) (ONCR) | payer MEDICARE, BC, SELFPAY ==
[2024-11-03 14:27] LABS: Basophils % 0.4 %; Eosinophils # 0.1 10^3/uL (0.0-0.8); Eosinophils % 1.4 %; Hematocrit 35.9 % (36-47); Lymphocytes # 1.7 10^3/uL (0.8-4.8); Lymphocytes % 17.5 %; Mean Corpuscular HGB Conc 33.4 g/dL (30-55); Mean Corpuscular Hemoglobin 30.6 pg (27-33); Mean Corpuscular Volume 91.6 fl (85-98); Mean Platelet Volume 12.7 fL (7.4-10.4); Monocytes # 0.6 10^3/uL (0.2-0.9); Monocytes % 5.6 %; Neutrophils # 7.23 10^3/uL (1.8-7.7); Neutrophils % 74.2 %; Nucleated Red Blood Cells % 0 %; Platelet Count 143 10^3/cmm (157-399); Red Blood Count 3.92 10^6/uL (3.85-5.65); Red Cell Distribution Width 13.3 % (12.1-15.1); White Blood Count 9.76 10^3/uL (3.29-11.43)
[2024-11-03 14:38] LABS: Bilirubin Urine 1+ (Negative); Blood Urine 1+ (Negative); Glucose Urine UA Negative (Normal); Ketones Urine Trace (Negative); Leukocyte Esterase Urine 3+ (Negative); Nitrate Urine Positive (Negative); Protein Urine 2+ (Negative); Specific Gravity, Urine 1.024 (1.005-1.030); Urine Appearance Turbid (CLEAR); Urine Color Dark Yellow (Yellow)
[2024-11-03 14:43] LABS: Add Urine Microscopic? YES; Bacteria Urine 4+ /hpf; Hyaline Casts Urine 60.08 /lpf; Squamous Epithelial Cell Urine 21-50 /hpf (0-5); WBC Urine >100 /hpf (0-5)
[2024-11-03 15:04] LABS: UA Slide Review UA Slide Review Perf
[2024-11-03 15:05] LABS: Fine Granular Casts Urine 0-4 /lpf
[2024-11-03 15:14] LABS: Transitional Epi Cells Urine 0-4 /hpf
[2024-11-03 15:50] LABS: Alanine Aminotransferase 14 U/L (0-33); Alkaline Phosphatase 126 U/L (35-105); Anion Gap 17.7 (5-19); Aspartate Amino Transferase 18 U/L (0-32); Blood Urea Nitrogen 17 mg/dL (8-23); Calcium 10.5 mg/dL (8.5-10.5); Carbon Dioxide 18 mmol/L (22-29); Chloride 107 mmol/L (98-107); Globulin 2.9 g/dL (1.3-4.6); Glucose 120 mg/dL (65-115); Osmolality Calculated 291 mOsm/kg (285-295); Potassium 3.7 mmol/L (3.5-5.1); Sodium 139 mmol/L (136-145); Total Bilirubin 0.3 mg/dL (0.15-1.2); Total Protein 6.9 g/dL (6.6-8.7)
== END 2024-11-23 23:59 | disposition home or self-care (01) ==
PROVIDERS: Family Provider Thoracic Surgery (Cardiothoracic Vascular Surgery); PCP Family Medicine; Visit Provider Nurse Practitioner Family
DX: C34.12 Malignant neoplasm of upper lobe, left bronchus or lung (principal); N39.0 Urinary tract infection, site not specified
CPT/HCPCS: 36591; 80053; 81001; 85025

== ENCOUNTER 2024-12-15 11:00 | Oncology outpatient (recurring) (ONCR) | payer MEDICARE, BC, SELFPAY ==
[2024-12-01 13:25] LABS: Basophils % 0.4 %; Eosinophils # 0.2 10^3/uL (0.0-0.8); Eosinophils % 2.1 %; Hematocrit 37.7 % (36-47); Lymphocytes # 1.9 10^3/uL (0.8-4.8); Mean Corpuscular HGB Conc 32.9 g/dL (30-55); Mean Corpuscular Hemoglobin 30.5 pg (27-33); Mean Corpuscular Volume 92.6 fl (85-98); Mean Platelet Volume 13.1 fL (7.4-10.4); Monocytes # 0.7 10^3/uL (0.2-0.9); Neutrophils # 7.66 10^3/uL (1.8-7.7); Neutrophils % 72.1 %; Nucleated Red Blood Cells % 0 %; Platelet Count 131 10^3/cmm (157-399); Red Blood Count 4.07 10^6/uL (3.85-5.65); Red Cell Distribution Width 13.7 % (12.1-15.1); White Blood Count 10.61 10^3/uL (3.29-11.43)
[2024-12-01 13:35] LABS: Slide Review Slide Review Perform
[2024-12-01 13:39] LABS: Alanine Aminotransferase 14 U/L (0-33); Albumin Level 4.3 g/dL (3.5-5.2); Alkaline Phosphatase 103 U/L (35-105); Anion Gap 16.1 (5-19); Aspartate Amino Transferase 21 U/L (0-32); Blood Urea Nitrogen 19 mg/dL (8-23); Calcium 10.3 mg/dL (8.5-10.5); Carbon Dioxide 19 mmol/L (22-29); Chloride 108 mmol/L (98-107); Globulin 2.9 g/dL (1.3-4.6); Glucose 109 mg/dL (65-115); Osmolality Calculated 291 mOsm/kg (285-295); Potassium 4.1 mmol/L (3.5-5.1); Sodium 139 mmol/L (136-145); Total Bilirubin 0.5 mg/dL (0.15-1.2); Total Protein 7.2 g/dL (6.6-8.7)
[2024-12-15] MEDS: iohexol 350 mg/mL 500 mL Btl (per mL) PO (10:32)
--- NOTE | 2024-12-15 11:00 | CT_ITS ---
WS: [id number] CT CHEST, ABDOMEN AND PELVIS WITH CONTRAST HISTORY: Restaging lung cancer. TECHNIQUE: Contiguous 5 mm axial imaging performed through the chest, abdomen and pelvis with IV cont rast, oral contrast has been provided. Coronal and sagittal reformats chest. Coronal and sagittal ref ormats through the abdomen and pelvis. All CT scans at [facility] use at least one of these d ose optimization techniques: automated exposure control; mA and/or kV adjustment per patient size (in cludes targeted exams where dose is matched to clinical indication); or iterative reconstruction. CONTRAST: Omnipaque 350; 100 mL IV. DLP: 951.14 mGy.cm COMPARISON: Chest CT 08/17/2024, CT chest, abdomen and pelvis 03/18/[address]: Volume loss LEFT thorax due to LEFT upper lobectomy. Breathing motion artifact. No recurren t mass or pneumonia. LEFT hilar lymph node measures 11 mm. This lymph node has slightly increased in size since the prior exam. No additional increasing lymph node burden. Mild atherosclerosis aorta. No rmal size pulmonary artery. Mild cardiomegaly. No pericardial or pleural effusions. Aberrant RIGHT elam bclavian artery. No chest wall abnormality. RIGHT subclavian Mediport. Abdomen CT: Normal liver and spleen. No metastatic disease. Normal adrenal glands, gallbladder and pa ncreas. Moderate atherosclerotic plaque abdominal aorta. Calcified plaque at the origins of the isaiah c axis and SMA but no occlusion. No renal obstruction. LEFT renal cysts. The largest cyst from the up per pole measures 5.8 x 4.8 cm. No ascites or adenopathy. Normally distended stomach. No small bowel obstruction. Moderate diffuse constipation in the colon. P rior appendectomy. Pelvic CT: No free fluid or adenopathy. Urinary bladder is not distended. Degenerative scoliosis lumbar spine. Concave deformity superior endplate of L4. No destructive bone l esions. CT/CT chest abdpel w/*[id number] IMPRESSION: 1. Status post LEFT upper lobectomy. 2. Single, slightly enlarged LEFT hilar lymph node measures 11 mm which is new . Consider 3-month chest CT follow-up with IV contrast. 3. No metastatic disease noted within the liver or adrenal glands. 4. No ascites. 5. LEFT renal cyst.
[2024-12-15] MEDS: iohexol 350 mg/mL 500 mL Btl (per mL) IV (11:29)
== END 2024-12-24 23:59 | disposition home or self-care (01) ==
LOC: RAD 12-16 00:01 → ONCMED 12-16 09:53
PROVIDERS: Family Provider Thoracic Surgery (Cardiothoracic Vascular Surgery); PCP Family Medicine; Visit Provider Nurse Practitioner Family
DX: C34.12 Malignant neoplasm of upper lobe, left bronchus or lung (principal); Z53.9 Procedure and treatment not carried out, unspecified reason; Z95.828 Presence of other vascular implants and grafts; N28.1 Cyst of kidney, acquired
CPT/HCPCS: 36591; 71260; 74177; 80053; 85025

== ENCOUNTER 2024-12-29 10:37 | Oncology outpatient (recurring) (ONCR) | payer MEDICARE, BC, SELFPAY ==
[2024-12-29 10:58] LABS: Basophils % 0.4 %; Eosinophils # 0.2 10^3/uL (0.0-0.8); Eosinophils % 2.5 %; Hematocrit 35.7 % (36-47); Lymphocytes # 1.7 10^3/uL (0.8-4.8); Lymphocytes % 21.6 %; Mean Corpuscular HGB Conc 33.3 g/dL (30-55); Mean Corpuscular Hemoglobin 30.5 pg (27-33); Mean Corpuscular Volume 91.5 fl (85-98); Mean Platelet Volume 12.6 fL (7.4-10.4); Monocytes # 0.5 10^3/uL (0.2-0.9); Monocytes % 5.8 %; Neutrophils # 5.44 10^3/uL (1.8-7.7); Neutrophils % 68.9 %; Nucleated Red Blood Cells % 0 %; Platelet Count 127 10^3/cmm (157-399); Red Cell Distribution Width 13.3 % (12.1-15.1)
[2024-12-29 11:17] LABS: Alanine Aminotransferase 13 U/L (0-33); Albumin Level 4.1 g/dL (3.5-5.2); Alkaline Phosphatase 116 U/L (35-105); Anion Gap 14.9 (5-19); Aspartate Amino Transferase 15 U/L (0-32); Blood Urea Nitrogen 15 mg/dL (8-23); Calcium 9.8 mg/dL (8.5-10.5); Carbon Dioxide 19 mmol/L (22-29); Chloride 110 mmol/L (98-107); Globulin 2.8 g/dL (1.3-4.6); Glucose 99 mg/dL (65-115); Osmolality Calculated 291 mOsm/kg (285-295); Potassium 3.9 mmol/L (3.5-5.1); Sodium 140 mmol/L (136-145); Total Bilirubin 0.4 mg/dL (0.15-1.2); Total Protein 6.9 g/dL (6.6-8.7)
== END 2025-01-21 23:59 | disposition home or self-care (01) ==
PROVIDERS: Family Provider Thoracic Surgery (Cardiothoracic Vascular Surgery); PCP Family Medicine; Visit Provider Nurse Practitioner Family
DX: C34.12 Malignant neoplasm of upper lobe, left bronchus or lung (principal); R06.00 Dyspnea, unspecified; R59.0 Localized enlarged lymph nodes; R19.7 Diarrhea, unspecified; D64.9 Anemia, unspecified; Z90.2 Acquired absence of lung [part of]; Z95.828 Presence of other vascular implants and grafts; Z79.899 Other long term (current) drug therapy
CPT/HCPCS: 36591; 80053; 85025; 99213

== ENCOUNTER 2025-02-04 08:00 | Oncology outpatient (recurring) (ONCR) | payer MEDICARE, BC, SELFPAY ==
[2025-01-26 08:10] LABS: Basophils # 0.1 10^3/uL (0.0-0.1); Basophils % 0.6 %; Eosinophils # 0.2 10^3/uL (0.0-0.8); Eosinophils % 2.3 %; Hematocrit 37.5 % (36-47); Lymphocytes # 2.3 10^3/uL (0.8-4.8); Lymphocytes % 21.2 %; Mean Corpuscular HGB Conc 33.3 g/dL (30-55); Mean Corpuscular Hemoglobin 30.3 pg (27-33); Mean Platelet Volume 12.6 fL (7.4-10.4); Monocytes # 0.8 10^3/uL (0.2-0.9); Monocytes % 7.8 %; Neutrophils # 7.19 10^3/uL (1.8-7.7); Neutrophils % 67.3 %; Nucleated Red Blood Cells % 0 %; Platelet Count 185 10^3/cmm (157-399); Red Blood Count 4.12 10^6/uL (3.85-5.65); Red Cell Distribution Width 13.5 % (12.1-15.1); White Blood Count 10.66 10^3/uL (3.29-11.43)
[2025-01-26 08:20] LABS: Reticulocyte % 1.7 % (0.5-2.0)
[2025-01-26 08:29] LABS: Alanine Aminotransferase 10 U/L (0-33); Albumin Level 4.2 g/dL (3.5-5.2); Alkaline Phosphatase 138 U/L (35-105); Anion Gap 14.1 (5-19); Aspartate Amino Transferase 14 U/L (0-32); Blood Urea Nitrogen 19 mg/dL (8-23); Calcium 10.1 mg/dL (8.5-10.5); Carbon Dioxide 22 mmol/L (22-29); Chloride 107 mmol/L (98-107); Ferritin 613 ng/mL (15-150); Globulin 2.9 g/dL (1.3-4.6); Glucose 103 mg/dL (65-115); Iron 53 ug/dL (37-145); Lactate Dehydrogenase 152 U/L (135-214); Osmolality Calculated 291 mOsm/kg (285-295); Potassium 4.1 mmol/L (3.5-5.1); Sodium 139 mmol/L (136-145); Total Bilirubin 0.5 mg/dL (0.15-1.2); Total Iron Binding Capacity 265 mcg/dl; Total Protein 7.1 g/dL (6.6-8.7); Unsaturated Iron Binding 212 ug/dL (112-347)
[2025-01-26 08:44] LABS: Vitamin B12 486 pg/mL (232-1245)
[2025-01-26 08:50] LABS: Folate Level 7.1 ng/mL (4.8-37.3)
--- NOTE | 2025-02-04 08:00 | NM_ITS ---
WS: [id number] NUCLEAR MEDICINE BONE SCAN Radiopharmaceutical: 25.2 Tc-99m MDP mCi IV Injection site: Antecubital Postinjection imaging delay: 1 hr CLINICAL INFORMATION: adenocarcinoma of left lung COMPARISON: None. FINDINGS: Bone lesions: There are no osseous lesions suspicious for metastatic disease. Soft tissue contours: Normal. Kidneys: Normal. Other findings: None. NM/NM bone scan whole body* [id number] IMPRESSION: No evidence of osseous metastatic disease.
== END 2025-02-21 23:59 | disposition home or self-care (01) ==
LOC: ONCMED 02-07 09:12
PROVIDERS: PCP Family Medicine; Visit Provider Internal Medicine
DX: Z53.9 Procedure and treatment not carried out, unspecified reason; C34.92 Malignant neoplasm of unspecified part of left bronchus or lung
CPT/HCPCS: 36591; 78306; 80053; 82607; 82728; 82746; 83010; 83540; 83550; 83615; 85025; 85045; 99213; A9561

== ENCOUNTER 2025-03-16 10:15 | Oncology outpatient (recurring) (ONCR) | payer MEDICARE, BC, SELFPAY ==
--- NOTE | 2025-03-14 13:00 | CTR_ITS ---
PROCEDURE INFORMATION: Exam: CT Chest With Contrast; Diagnostic Exam date and time: 03/14/2025 1:06 PM Age: 74 years old Clinical indication: Condition or disease; Cancer; Other: Adenocarcinoma of left lung; Prior surgery; Surgery date: 6+ months; Surgery type: Port, left lung, appy, hyst; Additional info: Adenocarcinoma of left lung, Dr. Kay would like this appointment for 03/14/25 because TECHNIQUE: Imaging protocol: Diagnostic computed tomography of the chest with contrast. Radiation optimization: All CT scans at this facility use at least one of these dose optimization techniques: automated exposure control; mA and/or kV adjustment per patient size (includes targeted exams where dose is matched to clinical indication); or iterative reconstruction. Contrast material: OMNI 350; Contrast volume: 100 ml; Contrast route: INTRAVENOUS (IV); COMPARISON: CT chest abdpel w/*[id number] 12/15/2024 11:21 AM RADIATION DOSE METRICS: Total DLP (mGy-cm): 936.31 FINDINGS: Lungs: Prior partial left pneumonectomy with volume loss. Tiny scattered pulmonary nodules appear stable. Pleural spaces: Unremarkable. No pneumothorax. No pleural effusion. Heart: Unremarkable. No cardiomegaly. No pericardial effusion. Lymph nodes: Unremarkable. No enlarged lymph nodes. Vasculature: Aberrant right subclavian artery. Bones/joints: Unremarkable. No acute fracture. Soft tissues: Unremarkable. PROCEDURE INFORMATION: Exam: CT Abdomen And Pelvis With Contrast Exam date and time: 03/14/2025 1:06 PM Age: 74 years old Clinical indication: Condition or disease; Cancer; Other: Adenocarcinoma of left lung; Prior surgery; Surgery date: 6+ months; Surgery type: Port, left lung, appy, hyst; Additional info: Adenocarcinoma of left lung, Dr. Kay would like this appointment for 03/14/25 because TECHNIQUE: Imaging protocol: Computed tomography of the abdomen and pelvis with contrast. Radiation optimization: All CT scans at this facility use at least one of these dose optimization techniques: automated exposure control; mA and/or kV adjustment per patient size (includes targeted exams where dose is matched to clinical indication); or iterative reconstruction. Contrast material: OMNI 350; Contrast volume: 100 ml; Contrast route: INTRAVENOUS (IV); COMPARISON: CT chest abdpel w/*[id number] 12/15/2024 11:21 AM RADIATION DOSE METRICS: Total DLP (mGy-cm): 936.31 FINDINGS: Liver: 8 mm rounded area of diminished attenuation in the right lobe of the liver was not present previously. A 2nd similar lesion in the left lobe is also new. Therefore the findings are suspicious for metastases. Gallbladder and biliary ducts: Normal. No calcified stones. No ductal dilation. Pancreas: Normal. No ductal dilation. Spleen: Zone of diminished attenuation within the spleen is probably a splenic infarct. Mild 13 cm splenomegaly. Adrenal glands: Normal. No mass. Kidneys and ureters: Left renal cyst with mural calcifications. Stomach and bowel: Unremarkable. No obstruction. No mucosal thickening. Appendix: No evidence of appendicitis. Intraperitoneal space: Unremarkable. No free air. No significant fluid collection. Vasculature: Unremarkable. No abdominal aortic aneurysm. Lymph nodes: Unremarkable. No enlarged lymph nodes. Urinary bladder: Unremarkable as visualized. Reproductive: Unremarkable as visualized. Bones/joints: Unremarkable. No acute fracture. Soft tissues: Unremarkable. CT/CT chest abdpel w/*[id number] IMPRESSION: No significant change. Stable small pulmonary nodules. IMPRESSION: 1. Findings suspicious for early hepatic metastases. 2. Likely splenic infarct. COMMENTS: Consistent with the [employer]'s Incidental Findings Committee white paper (J Am Timoteo Radiol 2018): Any incidental renal lesion less than 1 cm or classified as too small to characterize, or any incidental cystic renal lesion characterized as simple-appearing, is likely benign. No follow-up imaging is recommended for these lesions per consensus recommendations based on imaging criteria.
[2025-03-14] MEDS: iohexol 350 mg/mL 500 mL Btl (per mL) IV (13:08)
[2025-03-14] MEDS: iohexol 350 mg/mL 500 mL Btl (per mL) PO (13:08)
[2025-03-16 10:21] LABS: Basophils % 0.5 %; Eosinophils # 0.2 10^3/uL (0.0-0.8); Eosinophils % 2.4 %; Hematocrit 36.2 % (36-47); Lymphocytes # 1.3 10^3/uL (0.8-4.8); Lymphocytes % 15.4 %; Mean Corpuscular HGB Conc 32.6 g/dL (30-55); Mean Corpuscular Hemoglobin 29.9 pg (27-33); Mean Corpuscular Volume 91.9 fl (85-98); Mean Platelet Volume 12.1 fL (7.4-10.4); Monocytes # 0.6 10^3/uL (0.2-0.9); Monocytes % 6.6 %; Neutrophils # 6.51 10^3/uL (1.8-7.7); Neutrophils % 74.8 %; Nucleated Red Blood Cells % 0 %; Platelet Count 107 10^3/cmm (157-399); Red Blood Count 3.94 10^6/uL (3.85-5.65); Red Cell Distribution Width 13.7 % (12.1-15.1)
[2025-03-16 10:36] LABS: Estmated Average Glucose 82; Hemoglobin A1C 4.5 % (4.0-6.0)
[2025-03-16 10:58] LABS: Alanine Aminotransferase 7 U/L (0-33); Albumin Level 4.2 g/dL (3.5-5.2); Alkaline Phosphatase 112 U/L (35-105); Anion Gap 15.9 (5-19); Aspartate Amino Transferase 13 U/L (0-32); Blood Urea Nitrogen 14 mg/dL (8-23); Calcium 9.9 mg/dL (8.5-10.5); Carbon Dioxide 18 mmol/L (22-29); Chloride 109 mmol/L (98-107); Ferritin 617 ng/mL (15-150); Globulin 2.8 g/dL (1.3-4.6); Glucose 83 mg/dL (65-115); Iron 44 ug/dL (37-145); Lactate Dehydrogenase 125 U/L (135-214); Osmolality Calculated 288 mOsm/kg (285-295); Percent Saturation 15.7 % (20-50); Potassium 3.9 mmol/L (3.5-5.1); Sodium 139 mmol/L (136-145); Total Bilirubin 0.4 mg/dL (0.15-1.2); Total Iron Binding Capacity 280 mcg/dl; Unsaturated Iron Binding 236 ug/dL (112-347); Vitamin B12 524 pg/mL (232-1245)
== END 2025-03-23 23:59 | disposition home or self-care (01) ==
PROVIDERS: PCP Family Medicine; Visit Provider Internal Medicine
DX: Z53.9 Procedure and treatment not carried out, unspecified reason (principal); C34.12 Malignant neoplasm of upper lobe, left bronchus or lung; D50.9 Iron deficiency anemia, unspecified; E55.9 Vitamin D deficiency, unspecified; E11.65 Type 2 diabetes mellitus with hyperglycemia; R06.00 Dyspnea, unspecified; K76.89 Other specified diseases of liver; R19.7 Diarrhea, unspecified; Z79.899 Other long term (current) drug therapy
CPT/HCPCS: 36591; 71260; 74177; 80053; 82607; 82728; 82746; 83010; 83036; 83540; 83550; 83615; 85025; 85045; 96523; 99213

== ENCOUNTER → 2025-04-12 12:27 | Outpatient (BNVA) | payer MEDICARE, BC, SELFPAY | PROVIDERS: PCP Family Medicine; Visit Provider Internal Medicine Cardiovascular Disease | DX: Z53.9 Procedure and treatment not carried out, unspecified reason (principal) | CPT/HCPCS: 99999 ==

== ENCOUNTER 2025-04-13 11:41 | Oncology outpatient (recurring) (ONCR) | payer MEDICARE, BC, SELFPAY ==
[2025-04-13 12:30] LABS: Reticulocyte % 0.8 % (0.5-2.0)
[2025-04-13 12:31] LABS: Basophils % 0.6 %; Eosinophils # 0.2 10^3/uL (0.0-0.8); Eosinophils % 3.2 %; Hematocrit 33.7 % (36-47); Lymphocytes # 1.4 10^3/uL (0.8-4.8); Lymphocytes % 20.9 %; Mean Corpuscular HGB Conc 32.3 g/dL (30-55); Mean Corpuscular Hemoglobin 29.3 pg (27-33); Mean Corpuscular Volume 90.6 fl (85-98); Mean Platelet Volume 12.7 fL (7.4-10.4); Monocytes # 0.5 10^3/uL (0.2-0.9); Monocytes % 7.1 %; Neutrophils # 4.34 10^3/uL (1.8-7.7); Neutrophils % 66.7 %; Nucleated Red Blood Cells % 0 %; Platelet Count 92 10^3/cmm (157-399); Red Blood Count 3.72 10^6/uL (3.85-5.65); Red Cell Distribution Width 13.8 % (12.1-15.1); White Blood Count 6.51 10^3/uL (3.29-11.43)
[2025-04-13 12:50] LABS: Alanine Aminotransferase 12 U/L (0-33); Albumin Level 4.1 g/dL (3.5-5.2); Alkaline Phosphatase 133 U/L (35-105); Anion Gap 18.2 (5-19); Aspartate Amino Transferase 16 U/L (0-32); Blood Urea Nitrogen 18 mg/dL (8-23); Carbon Dioxide 17 mmol/L (22-29); Chloride 109 mmol/L (98-107); Ferritin 641 ng/mL (15-150); Globulin 2.8 g/dL (1.3-4.6); Glucose 81 mg/dL (65-115); Iron 58 ug/dL (37-145); Lactate Dehydrogenase 117 U/L (135-214); Osmolality Calculated 291 mOsm/kg (285-295); Percent Saturation 21.6 % (20-50); Potassium 4.2 mmol/L (3.5-5.1); Sodium 140 mmol/L (136-145); Total Bilirubin 0.3 mg/dL (0.15-1.2); Total Iron Binding Capacity 268 mcg/dl; Total Protein 6.9 g/dL (6.6-8.7); Unsaturated Iron Binding 210 ug/dL (112-347)
[2025-04-13 13:03] LABS: Vitamin B12 475 pg/mL (232-1245)
[2025-04-13 13:23] LABS: Folate Level 4.6 ng/mL (4.8-37.3)
== END 2025-04-23 23:59 | disposition home or self-care (01) ==
PROVIDERS: PCP Family Medicine; Visit Provider Internal Medicine
DX: C34.12 Malignant neoplasm of upper lobe, left bronchus or lung (principal); R79.89 Other specified abnormal findings of blood chemistry; E11.65 Type 2 diabetes mellitus with hyperglycemia
CPT/HCPCS: 36591; 80053; 82607; 82728; 82746; 83010; 83540; 83550; 83615; 85025; 85045

== ENCOUNTER 2025-04-27 12:56 | Outpatient (CLI) | payer MEDICARE, BC, SELFPAY ==
--- NOTE | 2025-04-27 13:00 | XR_ITS ---
WS: [email or web address] XR lumbar spine 2-3V* [id number] REASON FOR EXAM: acute pain after slipping in tub FINDINGS: Mild rotatory levoscoliosis. Mild biconcave compression deformity of L3 and moderate biconcave compression deformity of the L4. Mild narrowing of the L4-L5 disc space. No spondylolysis and no significant spondylolisthesis. XR/XR lumbar spine 2-3V* [id number] IMPRESSION: Compression deformities of L5 3 and L4 as above. Compared to the lumbar spine s agittal images on the CT scan of the chest abdomen pelvis 03/14/2025, the compre ssion deformity of L3 has occurred since that examination. Also, the compressio n deformity of L4 is more significant in appearance compared to that previous e xamination. The L3 and L4 compression deformities are therefore likely acute/elam bacute.
--- NOTE | 2025-04-27 13:00 | XR_ITS ---
WS: [email or web address] XR hip RT 2-3V wo/w pel* [id number] REASON FOR EXAM: acute pain after slipping in tub FINDINGS: No fracture of the hip or proximal femur. Bony pelvis is intact notably the pubic rami. No sacral insufficiency fractures. Mild narrowing of the hip joint space with mild to moderate subchondral sclerosis and osteophytosis. Coiled metallic densities seen overlying the pelvis bilaterally presumably this represents pelvic mesh. XR/XR hip RT 2-3V wo/w pel* [id number] IMPRESSION: Mild osteoarthritis of the hip. No acute abnormality.
== END 2025-04-27 12:57 | disposition home or self-care (01) ==
PROVIDERS: PCP Family Medicine; Visit Provider Family Medicine
DX: M16.11 Unilateral primary osteoarthritis, right hip (principal); M54.41 Lumbago with sciatica, right side; M41.86 Other forms of scoliosis, lumbar region; S32.030A Wedge compression fracture of third lumbar vertebra, initial encounter for closed fracture; S32.040A Wedge compression fracture of fourth lumbar vertebra, initial encounter for closed fracture; W18.2XXA Fall in (into) shower or empty bathtub, initial encounter; M51.369 Other intervertebral disc degeneration, lumbar region without mention of lumbar back pain or lower extremity pain; M25.751 Osteophyte, right hip; R93.89 Abnormal findings on diagnostic imaging of other specified body structures
CPT/HCPCS: 72100; 73502

== ENCOUNTER 2025-05-18 14:00 | Oncology outpatient (recurring) (ONCR) | payer MEDICARE, BC, SELFPAY ==
--- NOTE | 2025-05-16 12:30 | CTR_ITS ---
PROCEDURE INFORMATION: Exam: CT Chest With Contrast; Diagnostic Exam date and time: 05/16/2025 12:49 PM Age: 74 years old Clinical indication: Condition or disease; Other: Adenocarcinoma of left lung, lung condition and disease; Cancer of the lung; Unspecified; Prior surgery; Surgery date: 6+ months; Surgery type: Port left lung, appy, hyst TECHNIQUE: Imaging protocol: Diagnostic computed tomography of the chest with contrast. Radiation optimization: All CT scans at this facility use at least one of these dose optimization techniques: automated exposure control; mA and/or kV adjustment per patient size (includes targeted exams where dose is matched to clinical indication); or iterative reconstruction. Contrast material: OMNI 350; Contrast volume: 100 ml; Contrast route: INTRAVENOUS (IV); COMPARISON: CT chest abdpel w/*[id number] 03/14/2025 1:06 PM RADIATION DOSE METRICS: Total DLP (mGy-cm): 882.55 FINDINGS: Tubes, catheters and devices: A right-sided jessa catheter is again seen. Trachea: Unremarkable. Lungs: Postsurgical changes related to a prior partial left pneumonectomy with volume loss, not significantly changed. A few tiny scattered pulmonary nodules appear stable. Pleural spaces: No significant pleural effusion. No pneumothorax. Heart: Normal in size. No significant pericardial effusion. Coronary arteries: Mild atherosclerotic calcification. Mediastinal space: No pathologically enlarged lymph nodes. Lymph nodes: An enlarged left hilar lymph node is again seen measuring approximately 2.7 x 1.9 cm (previously 2.5 x 1.8 cm). Several subcentimeter mediastinal lymph nodes are again noted. Vasculature: The thoracic aorta is normal in caliber. Mild atherosclerotic calcification. No aortic aneurysm. An aberrant right subclavian artery is again noted. Bones/joints: Intact. No acute fracture. There is mild dextroscoliosis of the thoracic spine. Mild degenerative changes are noted. Soft tissues: Unremarkable. Other findings: CT abdomen and pelvis reported separately. PROCEDURE INFORMATION: Exam: CT Abdomen And Pelvis With Contrast Exam date and time: 05/16/2025 12:49 PM Age: 74 years old Clinical indication: Condition or disease; Other: Adenocarcinoma of left lung, lung condition and disease; Cancer of the lung; Unspecified; Prior surgery; Surgery date: 6+ months; Surgery type: Port left lung, appy, hyst TECHNIQUE: Imaging protocol: Computed tomography of the abdomen and pelvis with contrast. Radiation optimization: All CT scans at this facility use at least one of these dose optimization techniques: automated exposure control; mA and/or kV adjustment per patient size (includes targeted exams where dose is matched to clinical indication); or iterative reconstruction. Contrast material: OMNI 350; Contrast volume: 100 ml; Contrast route: INTRAVENOUS (IV); COMPARISON: CT chest abdpel w/*[id number] 12/15/2024 11:21 AM RADIATION DOSE METRICS: Total DLP (mGy-cm): 882.55 FINDINGS: Liver: A 1.5 cm hypodense lesion is again seen in the posterior right hepatic lobe (previously 1.1 cm). A similar 1.2 cm hypodense lesion is seen in the left hepatic lobe (previously 1.0 cm). There is a questionable new subcentimeter hypodense lesion in the inferior right hepatic lobe. Gallbladder and biliary ducts: No radiopaque stones. No significant biliary ductal dilatation. Pancreas: Unremarkable. Spleen: Mildly enlarged measuring 13 cm in length. A focal area of diminished enhancement is again seen within the anterior spleen suspicious for splenic infarct, stable in appearance. Adrenal glands: Unremarkable. Kidneys and ureters: A 6 cm cyst with mural calcification is again seen in the left kidney, stable. A smaller simple cyst is seen in the left kidney, stable. The right kidney is unremarkable. No significant hydronephrosis. Stomach and bowel: There is a small hiatal hernia. There is a short segment loop of ascending colon demonstrating luminal narrowing (series 5 images 41 through 43) which could be transient. However, other pathology, such as neoplasm, cannot be excluded. There does not appear to be significant stranding of the adjacent fat.There is no significant bowel dilatation or evidence for obstruction. Appendix: Not identified with certainty. No evidence for acute appendicitis. Intraperitoneal space: Unremarkable. No free air. No significant fluid collection. Vasculature: The abdominal aorta is normal in caliber. Moderate atherosclerotic calcification is noted. No abdominal aortic aneurysm. Lymph nodes: Unremarkable. No enlarged lymph nodes. Urinary bladder: Poorly distended with irregular thickening of the wall and mild stranding of the fat. Findings could be related to incomplete distension. Other pathology cannot be excluded. A few tiny bubbles of intraluminal air may be related to recent instrumentation. Reproductive: Unremarkable as visualized. Bones/joints: There are diffuse degenerative changes throughout the lumbar and visualized lower thoracic spine. There is reverse S shaped scoliosis of the lumbar spine. There is a lytic lesion in the right supra-acetabular ilium measuring approximately 2.6 x 1.9 x 2.9 cm, new since the prior study, compatible with osseous metastasis. There is erosion/destruction along the medial cortex of the ileum in this region. Soft tissues: Unremarkable. CT/CT chest abdpel w/*[id number] IMPRESSION: 1. Postsurgical changes related to partial left pneumonectomy. 2. Enlarged left hilar lymph node, slightly increased in size, with several subcentimeter mediastinal lymph nodes, not significantly changed. 3. Tiny scattered bilateral pulmonary nodules, not significantly changed. IMPRESSION: 1. Small hypodense lesions in the liver, slightly increased in size since March 14, 2025 with possible new lesion in the inferior right hepatic lobe. Findings are suspicious for progression of hepatic metastases. 2. Interval development of a lytic lesion in the right supra-acetabular ilium suspicious for osseous metastasis. 3. Short segment loop of ascending colon with luminal narrowing as described above. This could be transient. However, neoplasm cannot be excluded. There is no significant stranding of the adjacent fat. Please correlate clinically. 4. Poorly distended urinary bladder with irregular thickening of the wall and mild stranding of the adjacent fat. These findings could be related to incomplete distension. Other pathology, such as cystitis, cannot be excluded. A few bubbles of intraluminal air are noted which could be related to recent instrumentation. Please correlate clinically.
[2025-05-16] MEDS: iohexol 350 mg/mL 500 mL Btl (per mL) PO (12:44)
[2025-05-16] MEDS: iohexol 350 mg/mL 500 mL Btl (per mL) IV (12:51)
[2025-05-16 13:20] LABS: Basophils # 0.1 10^3/uL (0.0-0.1); Basophils % 0.7 %; Eosinophils # 0.3 10^3/uL (0.0-0.8); Eosinophils % 4.4 %; Hematocrit 32.1 % (36-47); Lymphocytes # 1.5 10^3/uL (0.8-4.8); Lymphocytes % 20.1 %; Mean Corpuscular HGB Conc 32.4 g/dL (30-55); Mean Corpuscular Hemoglobin 30.1 pg (27-33); Mean Platelet Volume 12.1 fL (7.4-10.4); Monocytes # 0.5 10^3/uL (0.2-0.9); Monocytes % 6.3 %; Neutrophils # 4.89 10^3/uL (1.8-7.7); Neutrophils % 67.9 %; Nucleated Red Blood Cells % 0 %; Platelet Count 125 10^3/cmm (157-399); Red Blood Count 3.45 10^6/uL (3.85-5.65); Red Cell Distribution Width 14.6 % (12.1-15.1)
[2025-05-16 14:01] LABS: Alanine Aminotransferase 10 U/L (0-33); Albumin Level 3.7 g/dL (3.5-5.2); Alkaline Phosphatase 141 U/L (35-105); Anion Gap 16.7 (5-19); Aspartate Amino Transferase 16 U/L (0-32); Blood Urea Nitrogen 16 mg/dL (8-23); Calcium 9.3 mg/dL (8.5-10.5); Carbon Dioxide 19 mmol/L (22-29); Chloride 104 mmol/L (98-107); Ferritin 690 ng/mL (15-150); Globulin 2.6 g/dL (1.3-4.6); Glucose 78 mg/dL (65-115); Iron 59 ug/dL (37-145); Lactate Dehydrogenase 197 U/L (135-214); Osmolality Calculated 280 mOsm/kg (285-295); Percent Saturation 26.6 % (20-50); Potassium 4.7 mmol/L (3.5-5.1); Sodium 135 mmol/L (136-145); Total Bilirubin 0.3 mg/dL (0.15-1.2); Total Iron Binding Capacity 221 mcg/dl; Total Protein 6.3 g/dL (6.6-8.7); Unsaturated Iron Binding 162 ug/dL (112-347); Vitamin B12 593 pg/mL (232-1245)
[2025-05-16 14:02] LABS: Folate Level 6.2 ng/mL (4.8-37.3)
[2025-05-18 15:10] LABS: Bilirubin Urine 1+ (Negative); Blood Urine 2+ (Negative); Glucose Urine UA Negative (Normal); Ketones Urine 1+ (Negative); Leukocyte Esterase Urine 3+ (Negative); Nitrate Urine Negative (Negative); Protein Urine 3+ (Negative); Specific Gravity, Urine 1.026 (1.005-1.030); Urine Appearance Turbid (CLEAR); Urine Color Dark Yellow (Yellow)
[2025-05-18 15:15] LABS: Add Urine Microscopic? YES; Bacteria Urine 1+ /hpf; Squamous Epithelial Cell Urine 21-50 /hpf (0-5); WBC Urine >100 /hpf (0-5)
[2025-05-18 15:20] LABS: UA Slide Review UA Slide Review Perf
[2025-05-18 15:21] LABS: Add Urine Culture? Yes
[2025-05-18 15:22] LABS: Amorphous Sediment Urine 1+ /hpf; Fine Granular Casts Urine 0-4 /lpf
== END 2025-05-23 23:59 | disposition home or self-care (01) ==
PROVIDERS: Internal Medicine; PCP Family Medicine; Visit Provider Internal Medicine
DX: Z53.9 Procedure and treatment not carried out, unspecified reason; C34.92 Malignant neoplasm of unspecified part of left bronchus or lung; R03.0 Elevated blood-pressure reading, without diagnosis of hypertension; L81.4 Other melanin hyperpigmentation; K63.9 Disease of intestine, unspecified; K52.9 Noninfective gastroenteritis and colitis, unspecified; N32.9 Bladder disorder, unspecified; D64.9 Anemia, unspecified; Z87.311 Personal history of (healed) other pathological fracture
CPT/HCPCS: 36591; 71260; 74177; 80053; 81001; 82607; 82728; 82746; 83010; 83540; 83550; 83615; 85025; 85045; 87077; 87086; 87186; 96523; 99215

== ENCOUNTER → 2025-05-24 15:23 | Outpatient (BNVA) | payer MEDICARE, BC, SELFPAY | PROVIDERS: PCP Family Medicine; Visit Provider Internal Medicine Cardiovascular Disease | DX: R07.9 Chest pain, unspecified (principal); R94.31 Abnormal electrocardiogram [ECG] [EKG] | CPT/HCPCS: 93005 ==

== ENCOUNTER 2025-06-15 14:01 | Oncology outpatient (recurring) (ONCR) | payer MEDICARE, BC, SELFPAY ==
--- NOTE | 2025-06-03 13:00 | PETR_ITS ---
PROCEDURE INFORMATION: Exam: PET/CT Skull Base to Mid-thigh Exam date and time: 06/03/2025 2:38 PM Age: 74 years old Clinical indication: Abnormal findings; Lung nodule; Prior surgery; Surgery date: 6+ months; Surgery type: Port left lung, appy, hyst LABS AND CLINICAL REPORTS: Glucose: 100 mg/dl Treatment strategy for malignancy (PET staging): Initial Staging (PI) TECHNIQUE: Imaging protocol: Following at least four-hour fasting and following the injection of radiopharmaceutical, low dose CT images were obtained. Then, PET images were obtained. Attenuation corrected images were constructed using the CT scan. Fused images of PET and CT were reviewed. The standardized uptake values (SUV) reported below are maximum values within a region of interest, expressed in gm/ml. Exam includes orbital meatal line to mid-thigh. SUV normalization method: BodyWeight Radiopharmaceutical: 10.36 mCi F-18 FDG (Fluorodeoxyglucose), IV. Time of imaging post radiopharmaceutical administration: 47 minutes Injection site: right ac COMPARISON: 1. PT PET skull to thigh INIT [id number] 10/14/2023 10:44 AM 2. NM bone scan whole body* [id number] 02/04/2025 8:[address] chest abdpel w/*[id number] 05/16/2025 12:49 PM FINDINGS: Tubes, catheters and devices: Right chest port terminates near the superior cavoatrial junction. Brain: Visualized brain has normal physiologic uptake. Pharynx: No abnormal uptake. Larynx: Asymmetric right laryngeal uptake with medialized left vocal cord likely representing left vocal cord paralysis. Lungs, pleura and trachea: No abnormal uptake. Prior left upper lobectomy. Mild subsegmental atelectasis versus scarring at the lower lungs. Heart: Normal physiologic uptake. Coronary arteries: Heavy coronary artery calcification. Mediastinal space: No abnormal uptake. Diaphragm: Small hiatal hernia. Liver: Multiple bilobar FDG avid hypodense lesions with index of the left lobe showing SUV max 12.0 on axial image 125 and index right lobe lesion showing SUV max 25.5 on axial image 145. Gallbladder and biliary ducts: No abnormal uptake. Pancreas: No abnormal uptake. Spleen: No abnormal uptake. Adrenal glands: No abnormal uptake. Kidneys and ureters: Normal physiologic uptake. Benign-appearing photopenic fluid density left renal cyst with mild thin peripheral calcification. Stomach and bowel: No abnormal uptake. Reproductive: The uterus is surgically absent. Vasculature: No abnormal uptake. Heavy systemic atherosclerotic calcification without aortic aneurysm. Aberrant right subclavian artery. Lymph nodes: FDG-avid lymph node just inferior to the left thyroid measures 9 mm in the short axis on axial image 66 and shows SUV max 6.7. FDG avid mediastinal and left hilar lymphadenopathy with index subcarinal node measuring 1.6 cm in the short axis with SUV max 18.1 and left hilar node measuring approximately 1.8 cm in the short axis on axial image 85 showing SUV max 22.7. Skeleton: Multifocal FDG avid metastases with index posterior right 8th rib lesion showing SUV max 8.1 on axial image 102, rightward T11 vertebral body lesion showing SUV max 6.0, sclerotic right posterior element sclerotic L2 vertebral lesion showing SUV max 12.6, large aggressive right supra-acetabular lytic lesion with loss of cortex medially showing SUV max 16.5 on axial image 217, and proximal left femur lesion showing SUV max 7.8 on axial image 246. Soft tissues: No suspicious abnormal uptake in the visualized head, neck, chest, abdomen, pelvis, and extremities. Linear low-level uptake at bilateral upper arm and shoulder girdle musculature without underlying CT abnormality compatible with physiologic activation or strain. METRICS: Mediastinal blood pool: SUV mean 2.4 Liver uptake: SUV mean 3.0 PET/PET skull to thigh INIT [id number] IMPRESSION: 1. Disease progression of widespread metastatic disease with FDG avid mediastinal and left hilar lymphadenopathy, multiple bilobar hepatic metastases, and multifocal FDG avid osseous metastases with index lesions detailed above, the most significant of which is a large lytic right supra-acetabular lesion. 2. Evidence of left vocal cord paralysis. 3. Additional chronic and incidental findings as above, to include atherosclerosis with heavy coronary artery calcification.
[2025-06-08 10:44] LABS: Hematocrit 32.7 % (36-47); Hemoglobin 10.60 g/dL (11.27-16.99); Mean Corpuscular HGB Conc 32.4 g/dL (30-55); Mean Corpuscular Hemoglobin 30.5 pg (27-33); Mean Corpuscular Volume 94.0 fl (85-98); Nucleated Red Blood Cells % 0 %; Platelet Count 118 10^3/cmm (157-399); Red Blood Count 3.48 10^6/uL (3.85-5.65); White Blood Count 7.43 10^3/uL (3.29-11.43)
[2025-06-08 10:58] LABS: Alanine Aminotransferase 9 U/L (0-33); Albumin Level 3.9 g/dL (3.5-5.2); Alkaline Phosphatase 164 U/L (35-105); Anion Gap 17.7 (5-19); Aspartate Amino Transferase 18 U/L (0-32); Blood Urea Nitrogen 21 mg/dL (8-23); Calcium 9.5 mg/dL (8.5-10.5); Carbon Dioxide 16 mmol/L (22-29); Chloride 108 mmol/L (98-107); Creatinine Clr Calc Pharmacy 40.0416; Globulin 2.8 g/dL (1.3-4.6); Glucose 88 mg/dL (65-115); Osmolality Calculated 288 mOsm/kg (285-295); Potassium 3.7 mmol/L (3.5-5.1); Sodium 138 mmol/L (136-145); Total Protein 6.7 g/dL (6.6-8.7)
[2025-06-08 11:15] LABS: Glucose Urine UA Negative (Normal); Nitrate Urine Negative (Negative); Specific Gravity, Urine 1.024 (1.005-1.030)
[2025-06-08 11:18] LABS: Add Urine Microscopic? YES
[2025-06-08 11:30] LABS: UA Slide Review UA Slide Review Perf
[2025-06-08 11:31] LABS: Oval Fat Bodies Urine 1+ /hpf
--- NOTE | 2025-06-08 17:19 | N.ONRAD NP_ITS ---
Radiation Oncology New Patient Visit Patient: Betty Lantigua MR#: [id number] : 1950 Age: 74 Sex: Female Dictated by: Dr. Jimmy Alexis Date of Service: 06/08/2025 Referring Physician(s) : Dr. Kay Diagnosis: St III adenocarcinoma WILIAN s/p neoadjuvant chemo and resection 01/2024. Now with visceral and osseous metastatic disease progressive following sequential immunotherapies. Now with symptomatic L spine and right acetabular progression. Radiotherapy to date: Summary > No prior radiation therapy. Chief Complaint / History of Present Illness: See Dr. Kay???s consult from today ( 06/08/2025). She notes 6 to 8 weeks of right buttock pain limiting weight bearing . Pain is 8 to 10 on 10 scale. She also has LBP radiating into right leg. He takes primarily Tylenol and rarely uses Tramadol as it makes her sleepy. She lives independently in a farm house. She is in the process of divorce. She is here with her friend Susanna. She has had 70 pound weight loss in last 1 ??? years inpart due to ue of Ozempic.. She continues to lose 2 to 3 pounds a month. She can have enthusiasm for food but then loses her appetite once she has the item to eat. PET/CT from 06/03/2025 metastatic hilar and mediastinal adenopathy, several hepatic lesions, right supra hilar lytic mass and right L2 pedicle lesion. Several other scattered small spinal and pelvic osseous lesions. Current Medications: albuterol sulfate 90 mcg/actuation 2 inhalations inhalation QID PRN amlodipine 10 mg PO DAILY [Bedside commode As directed] biotin 1 mg PO DAILY blood-glucose sensor (DexPhilanthropedia G6 Sensor device) As directed blood-glucose transmitter (SmartKickzcom G6 Transmitter device) As directed blood-glucose,drying machine receiver,cont (Dexcom G6 Stock Preparation Operator) As directed [id number]-[id number] 160-9-4.8 mcg/actuation (Breztri Aerosphere) 2 inhalations inhalation BID cholestyramine 4 grams PO DAILY 30 days ciprofloxacin HCl 500 mg PO BID 7 days [Depends As directed] [Diabetic Shoes As directed] ergocalciferol (vitamin D2) 50 mcg PO BID famotidine (Pepcid) 20 mg PO BID ferrous sulfate 325 mg PO BID insulin glargine (Lantus Solostar U-100 Insulin) 20 units (0.2 mL) SUBCUT QAM insulin lispro (Humalog KwikPen (U-100) Insulin) 5 units (0.05 mL) SUBCUT TID meclizine 25 mg PO QID PRN melatonin 3 mg PO DAILY ondansetron HCl 4 mg PO Q8H PRN osimertinib 40 mg PO BID pen needle, diabetic (TechLITE Pen Needle) As directed pen needle, diabetic (TechLITE Pen Needle) As directed [portable oxygen concentrator and supplies As directed] semaglutide (Ozempic) 0.25 mg (0.368 mL) SUBCUT .Once a week sertraline 100 mg PO DAILY tramadol 50 mg PO Q8H PRN 7 days valsartan 160 mg PO DAILY vibegron (Gemtesa) 75 mg PO DAILY Allergies: codeine Allergy (Verified 06/08/25 10:44) ADR-Nausea shellfish derived Allergy (Verified 06/08/25 10:44) hives/itching Medical History: No history of collagen vascular disease. No previous radiation therapy. Blood clot in leg Adenocarcinoma of left lung, stage 3 Left upper lobe - Diagnosed 2022 Dyslipidemia T2DM (type 2 diabetes mellitus) Syncope and collapse The EKG from 06/01/2020 revealed sinus rhythm, minimal left axis deviation, minimal voltage criteria for LVH and some nonspecific T wave changes. Benign essential HTN Glaucoma Labyrinthitis Diabetes Depression Osteoporosis Bradycardia Surgical History: S/P lobectomy of lung Left upper lobe - 01/2024 - St H/O hysterectomy with oophorectomy Hx of cataract removal with insertion of prosthetic lens Hx of appendectomy Family History: Father Colon cancer Other Hypertension Postsurgical cardiac pacemaker in situ Stroke Social History: for third time but in three year process of divorce. Lives alone in farm house. 3 sons . One here, one in [place], one in [place] near [place]. She last worked as [employer]. Enjoys crafts and art. Smoking and tobacco/nicotine status: never used tobacco/nicotine Second hand smoke exposure: Yes Alcohol intake: never Substance/Drug Use: never Dietary Habits Caffeine: No Current Complaints / Review of Systems: . Vital Signs: Performed on 06/08/2025 2:03 PM BMI - 27.292 kg/m2 (high), Height - 64 in, Weight - 159 lbs, Temperature - 98.7 f, Pulse - 65 /min, Respiration - 17 /min, O2 Sat - 96 %, Pain - 8, Fatigue - 0 and BP - 121/ 60 mm(hg)(/low). Physical Exam: Robust appearing. Antalgic gait and uses a walker. . No palpable adenopathy. No clubbing or edema. Right buttock tenderness. Performance Status: ECOG PS 2 Pathology: None Lab: 06/08/2025 Hb 10.6, WBC 7430, IMPRESSION: Symptomatic osseous metastatic disease at right supra-acetabular and L2 right pedicle regions. Recommend palliative radiation to both site. Discussed with patient and Dr. Kay. Plan: Simulation 06/09/2025 with treatment to follow. Signed by: 06/08/2025 5:17:40 PM <<Signature on File>> Time spent with patient: 60 minutes CPT Code: CPT Code:
== END 2025-06-15 23:59 | disposition home or self-care (01) ==
PROVIDERS: Internal Medicine; PCP Family Medicine; Visit Provider Radiology Radiation Oncology
DX: Z51.0 Encounter for antineoplastic radiation therapy (principal); C34.12 Malignant neoplasm of upper lobe, left bronchus or lung; C79.51 Secondary malignant neoplasm of bone; C79.89 Secondary malignant neoplasm of other specified sites
CPT/HCPCS: 36591; 77263; 77290; 77295; 77300; 77334; 77387; 77412; 78815; 80053; 81001; 85025; 99205; 99213; A9552

== ENCOUNTER 2025-06-20 13:45 | Oncology outpatient (recurring) (ONCR) | payer MEDICARE, BC, SELFPAY ==
--- NOTE | 2025-06-16 15:02 | ONCRAD TMN_ITS ---
Radiation Oncology Weekly Treatment Management Patient: Aminata Lantigua MR#: [id number] : 1950 Attending Physician: Dr. Raf Noel Date of Service: 06/16/2025 Referring Physician(s) : Diagnosis: C34.92 - Malignant neoplasm of unspecified part of left bronchus or lung, Diagnosed 06/09/2025 (Active) C79.51 - Secondary malignant neoplasm of bone, Diagnosed 06/09/2025 (Active) C78.7 - Secondary malignant neoplasm of liver and intrahepatic bile duct, Diagnosed 06/09/2025 (Active) Radiotherapy to date: Course: Lumbar/RHip, Treatment Site: L1-L3 Spine, Ref. ID: Lumbar 1-3, Energy: 15X, Dose/Fx (cGy): 400, #Fx: 4 / 5, Dose Correction (cGy): 0, Total Dose Delivered (cGy): 1,600, Start Date: 06/13/2025, End Date: 06/16/2025, Elapsed Days: 3 Course: Lumbar/RHip, Treatment Site: RHip, Ref. ID: PTV, Energy: 15X, Dose/Fx (cGy): 400, #Fx: 4 / 5, Dose Correction (cGy): 0, Total Dose Delivered (cGy): 1,600, Start Date: 06/13/2025, End Date: 06/16/2025, Elapsed Days: 3 Reason for visit: The patient is being seen today as part of their regularly scheduled weekly on treatment visits to assess for acute toxicities from radiotherapy. Review of Systems: Complains of 10 out of 10 pain at the toward the end of her pain medicine cycle. She is only taking 3 tablets/day. We did recommend that she go to every 4-6 hours. She will talk with Dr. Kay's office for additional medication. She has an appointment for MRI of the brain on the 20 June and is supposed to have a liver biopsy evaluation at [facility] on 06/23. She will undergo her last treatment tomorrow. Vital Signs: Performed on 06/16/2025 2:24 PM BMI - 27.807 kg/m2 (high), Height - 64 in, Weight - 162 lbs, Temperature - 97.5 f, Pulse - 58 /min (low), Respiration - 17 /min, O2 Sat - 94 % (low), Pain - 0, Fatigue - 0 and BP - 114/ 67 mm(hg). Physical Exam: Skin intact. AAOx3. Imaging: Radiation therapy imaging related to accurate target localization (i.e. KV, MV and CBCT) was reviewed. Appropriate changes, if any, were made to ensure treatment accuracy. Plan: MRI of the brain on 06/20/2025 Have liver biopsy evaluation on 06/23/2025 at [facility] Complete treatment tomorrow RTC in 1 month on 07/20/2025 at 1400 hrs. or sooner if need be. Signed by: Raf Noel 06/16/2025 3:01:04 PM
--- NOTE | 2025-06-17 11:47 | N.ONRD TS_ITS ---
Radiation Oncology Treatment Summary Patient: Rhina>Betty> MR#: [id number] : 1950> Age: 74> Sex: Female Dictated by: Raf Noel Date of Service: 06/17/2025 Referring Physician(s) : Diagnosis: C34.92 - Malignant neoplasm of unspecified part of left bronchus or lung, Diagnosed 06/09/2025 (Active) C79.51 - Secondary malignant neoplasm of bone, Diagnosed 06/09/2025 (Active) C78.7 - Secondary malignant neoplasm of liver and intrahepatic bile duct, Diagnosed 06/09/2025 (Active) Radiotherapy to Date: Course: Lumbar/RHip, Treatment Site: L1-L3 Spine, Ref. ID: Lumbar 1-3, Energy: 15X, Dose/Fx (cGy): 400, #Fx: 5 / 5, Dose Correction (cGy): 0, Total Dose Delivered (cGy): 2,000, Start Date: 06/13/2025, End Date: 06/17/2025, Elapsed Days: 4 Treatment Site: RHip, Ref. ID: PTV, Energy: 15X, Dose/Fx (cGy): 400, #Fx: 5 / 5, Dose Correction (cGy): 0, Total Dose Delivered (cGy): 2,000, Start Date: 06/13/2025, End Date: 06/17/2025, Elapsed Days: 4 Clinical Summary: The patient tolerated RT well. She complains of 10 out of 10 pain at the toward the end of her pain medicine cycle. She is only taking 3 tablets/day. We did recommend that she go to every 4-6 hours. She will talk with Dr. Kay's office for additional medication. She has an appointment for MRI of the brain on the 20 June and is supposed to have a liver biopsy evaluation at [facility] on 06/23. Plan: End of treatment today. Continue on the above pain medication regiment. RTC in 1 month on 07/20/2025 at 1400 hrs. or sooner if need be Signed by: Raf Noel>06/17/2025 11:46:02 AM <<Signature on File>>
--- NOTE | 2025-06-20 13:45 | MR_ITS ---
WS: [id number] MRI BRAIN WITH AND WITHOUT CONTRAST HISTORY: adenocarcinoma of left lung COMPARISON: 08/19/2024, PET/CT 06/03/2025 TECHNIQUE: Multiplanar imaging performed through the brain with MultiHance 15 ml's IV. No acute infarcts are seen. Springer-white matter differentiation is well preserved. Moderate symmetric atrophy. There are a few scattered T2 and FLAIR signal hyperintensities within the white matter. The extent of white matter disease is difficult to quantify adequately as there is motion artifact. Small lacunar infarct in the RIGHT renee radiata. Mild small vessel disease in the arnold. No hemorrhage. Ventricles and extra-axial spaces are normal. Clivus and pituitary gland are normal. Visualized posterior fossa and brainstem are also normal. No metastatic disease to the brain is identified. There is a small venous angioma identified in the LEFT temporal lobe which was not definitely visualized on the prior study but obscured by artifact. Dural venous sinuses are normal. Paranasal sinuses: Well aerated with no significant disease. Mastoid air cells: Normal. Calvarium and scalp: Normal. No skull lesions are identified. MR/MR head wo/w con [id number] IMPRESSION: 1. No metastatic disease to the brain is identified. No enhancing lesions. 2. LEFT temporal lobe venous angioma. 3. Mild small vessel disease and moderate atrophy. 4. Prior RIGHT lacunar infarct renee radiata. 5. No diffusion abnormalities or ischemia.
[2025-06-20] MEDS: gadobenate dimeglumine 20 mL vial 16 ML IV (14:32)
== END 2025-06-23 23:59 | disposition home or self-care (01) ==
LOC: RAD 06-21 00:01 → ONCMED 06-21 09:04
PROVIDERS: PCP Family Medicine; Visit Provider Radiology Radiation Oncology
DX: Z53.9 Procedure and treatment not carried out, unspecified reason; C34.12 Malignant neoplasm of upper lobe, left bronchus or lung; D18.02 Hemangioma of intracranial structures; I25.10 Atherosclerotic heart disease of native coronary artery without angina pectoris
CPT/HCPCS: 70553; 77336; 77387; 77412; 99024

== ENCOUNTER → 2025-06-29 12:28 | Outpatient (BNVA) | payer MEDICARE, BC, SELFPAY | PROVIDERS: PCP Family Medicine; Visit Provider Family Medicine | DX: R30.0 Dysuria (principal) | CPT/HCPCS: 81000; 87086 ==

== ENCOUNTER 2025-07-20 13:57 | Oncology outpatient (recurring) (ONCR) | payer MEDICARE, BC, SELFPAY ==
--- NOTE | 2025-07-20 14:52 | ONCRAD EPV_ITS ---
Radiation Oncology Established Patient Visit Patient: Betty Lantigua [id number] : 1950 Age: 74 Sex: Female Dictated by: Raf Noel Date of Service: 07/20/2025 Referring Physician(s) : Dr Kay Diagnosis: C34.92 - Malignant neoplasm of unspecified part of left bronchus or lung, Diagnosed 06/09/2025 (Active) C79.51 - Secondary malignant neoplasm of bone, Diagnosed 06/09/2025 (Active) C78.7 - Secondary malignant neoplasm of liver and intrahepatic bile duct, Diagnosed 06/09/2025 (Active) Radiotherapy to Date: Course: Lumbar/RHip, Treatment Site: L1-L3 Spine, Ref. ID: Lumbar 1-3, Energy: 15X, Dose/Fx (cGy): 400, #Fx: 5 / 5, Dose Correction (cGy): 0, Total Dose Delivered (cGy): 2,000, Start Date: 06/13/2025, End Date: 06/17/2025, Elapsed Days: 4 Course: Lumbar/RHip, Treatment Site: RHip, Ref. ID: PTV, Energy: 15X, Dose/Fx (cGy): 400, #Fx: 5 / 5, Dose Correction (cGy): 0, Total Dose Delivered (cGy): 2,000, Start Date: 06/13/2025, End Date: 06/17/2025, Elapsed Days: 4 Current History: This is a pleasant 74-year-old female who is 1 month status post palliative XRT to the right hip and lumbar area. Her original pain was 10 on a 10 point scale when she is down to 3 on a 10 point scale. Patient also taking 12 mcg fentanyl patch changed every 72 hours. We cautioned her to not go off of quickly. She wishes to continue follow-up care with us. Current Medications: albuterol sulfate 90 mcg/actuation 2 inhalations inhalation QID PRN amlodipine 10 mg PO DAILY [Bedside commode As directed] blood-glucose sensor (Dexcom G6 Sensor device) As directed blood-glucose transmitter (Dexcom G6 Transmitter device) As directed blood-glucose,roving sizer,cont (Dexcom G6 Daytime Babysitter) As directed [id number]-[id number]-[id number] 160-9-4.8 mcg/actuation (Breztri Aerosphere) 2 inhalations inhalation BID [Depends As directed] [Diabetic Shoes As directed] ergocalciferol (vitamin D2) 50 mcg PO BID famotidine (Pepcid) 20 mg PO BID hydrocodone-acetaminophen 5-325 mg 1 tab PO TID PRN 30 days insulin glargine (Lantus Solostar U-100 Insulin) 20 units (0.2 mL) SUBCUT QAM insulin lispro (Humalog KwikPen (U-100) Insulin) 5 units (0.05 mL) SUBCUT TID meclizine 25 mg PO QID PRN melatonin 3 mg PO DAILY ondansetron HCl 4 mg PO Q8H PRN osimertinib 40 mg PO BID pen needle, diabetic (TechLITE Pen Needle) As directed pen needle, garfield fentanyl 12 mcg/hr1 patch transdermal Q72H 10 ea 0RF 30 days hydrocodone-acetaminophen 10-325 mg1 tab PO Q4H PRN 180 tabs 0RF pain 30 days sulfamethoxazole-trimethoprim 800-160 mg (Bactrim DS)1 tab PO BID 14 tabs 0RF Allergies: codeine Allergy (Verified 06/08/25 10:44) ADR-Nausea shellfish derived Allergy (Verified 06/08/25 10:44) hives/itching Current Complaints / Review of Systems: . Vital Signs: Performed on 07/20/2025 2:26 PM BMI - 25.782 kg/m2 (high), Height - 64 in, Weight - 150.2 lbs, Temperature - 97.6 f, Pulse - 76 /min, Respiration - 16 /min, O2 Sat - 96 %, Pain - 3, Fatigue - 0 and BP - 121/ 53 mm(hg)(/low). Physical Exam: General: Alert and oriented x 3. No acute distress. HEENT: Normocephalic, atraumatic. Extraocular Movements Intact: Pupils Equal, Round, Reactive to Light and Accommodation: Sclerae anicteric. Oral cavity is clear without lesions, masses or ulcers. NECK: Supple without supraclavicular or jugular lymphadenopathy. LUNGS: Clear to auscultation bilaterally without rales, rhonchi or wheeze. HEART: Regular rate and rhythm, normal S1 and S2 without murmur, gallop or rub. MUSCULOSKELETAL: No tenderness or percussion pain over the axial skeleton, scapulae or pelvis. ABDOMEN: Soft, nontender, nondistended without masses or organomegaly. Bowell sounds are present. EXTREMITIES: No peripheral edema is identified. Limited motor and sensory examination are grossly intact and symmetric bilaterally. NEUROLOGIC: Cranial nerves II ???XII are grossly intact. Normal sensation, strength 5/5 in all extremities, normal gait, no ataxia. Performance Status: KPS 80 Lab: None pending. Pathology: Primary, c34.92 - malignant neoplasm of unspecified part of left bronchus or lung, Diagnosed 06/09/2025 (active) , Primary, c79.51 - secondary malignant neoplasm of bone, Diagnosed 06/09/2025 (active) and Primary, c78.7 - secondary malignant neoplasm of liver and intrahepatic bile duct, Diagnosed 06/09/2025 (active) . Imaging: See HPI Impression: Left-sided lung cancer Liver metastasis Bone metastasis next PLAN: RTC in 3 months or sooner if need be. MRI of the brain negative for mets Awaiting liver biopsy results. Signed by: 07/20/2025 2:50:54 PM <<Signature on File>> Time spent with patient: 25 minutes Global Fee CPT Code: CPT Code:
== END 2025-07-24 23:59 | disposition home or self-care (01) ==
PROVIDERS: PCP Family Medicine; Visit Provider Radiology Radiation Oncology
DX: C34.92 Malignant neoplasm of unspecified part of left bronchus or lung (principal); C79.51 Secondary malignant neoplasm of bone; C78.7 Secondary malignant neoplasm of liver and intrahepatic bile duct
CPT/HCPCS: 99024

== ENCOUNTER 2025-07-22 08:24 | Outpatient (CLI) | payer MEDICARE, BC, SELFPAY ==
--- NOTE | 2025-07-22 15:00 | USCV_ITS ---
Betty Lantigua Age: 74 Gender: F : 1950 Exam Date: 07/22/2025 08:47 Ordering Phys: Hali Bennett MD ([email or web address]) Technologist: CRISTELA [place] [facility] [place]: SOB BP: 120 / 72 HR: 51 Rhythm: Sinus Technical Quality: Adequate MEASUREMENTS (Male / Female) Normal Values 2D ECHO LV Diastolic Diameter PLAX 4.6 cm 4.2 - 5.9 / 3.9 - 5.3 cm IVS Diastolic Thickness 1.0 cm 0.6 - 1.0 / 0.6 - 0.9 cm IVS Systolic Thickness 1.3 cm LVPW Diastolic Thickness 1.2 cm 0.6 - 1.0 / 0.6 - 0.9 cm LVPW Systolic Thickness 1.8 cm LVOT Diameter 2.0 cm LV Ejection Fraction 2D Teich 54.9 % LV Ejection Fraction MOD 4C 53.0 % LV Ejection Fraction MOD 2C 64.8 % LV Ejection Fraction 2C AL 70.2 % LA Diameter 3.6 cm RA Systolic Volume 4C AL 36.9 ml RA Systolic Volume 4C MOD 35.6 ml LA Sys Volume AL 48.9 cm cubed LA Sys Volume Index AL 26.5 cm cubed/m squared Aorta at Sinotubular Diameter 2.7 cm M-MODE LA Ao Ratio MM 1.2 AV Cusp Separation MM 2.0 cm DOPPLER AV Peak Velocity 120.0 cm/s LVOT Peak Velocity 80.0 cm/s AV Area Cont Eq vti 2.4 cm squared AV Area Cont Eq pk 2.1 cm squared MV Peak Velocity 98.0 cm/s MV Area PHT 3.4 cm squared Mitral E to A Ratio 1.0 TR Peak Velocity 101.0 cm/s TR Peak Gradient 4.1 mmHg TV Peak E Velocity 79.0 cm/s PV Peak Velocity 107.0 cm/s FINDINGS Left Ventricle Normal left ventricular size and systolic function, EF 60-65%. No regional wall motion abnormalities. Right Ventricle Normal right ventricular size and systolic function. Right Atrium Normal right atrial size. Left Atrium Normal left atrial size. Mitral Valve Structurally normal mitral valve. Trace mitral valve regurgitation. Aortic Valve Thickened aortic valve. No aortic valve stenosis. Tricuspid Valve Insufficient TR jet to calclulate RVSP Pulmonic Valve Not well visualized Pericardium Normal Aorta Normal in size IVC Not well visualized CONCLUSIONS LV systolic function is normal with EF of 60-65% Trace mitral regurgitation Cody Irizarry MD (Electronically Signed) Final Date: 23 July 2025 01:30 S
== END 2025-07-22 08:25 | disposition home or self-care (01) ==
LOC: RAD 08:28
PROVIDERS: PCP Family Medicine; Visit Provider Internal Medicine Cardiovascular Disease
DX: R06.02 Shortness of breath (principal); Z09 Encounter for follow-up examination after completed treatment for conditions other than malignant neoplasm; I35.8 Other nonrheumatic aortic valve disorders
CPT/HCPCS: 93306

== ENCOUNTER 2025-08-10 13:00 | Oncology outpatient (recurring) (ONCR) | payer MEDICARE, BC, SELFPAY ==
[2025-07-27 14:32] LABS: Hematocrit 26.8 % (36-47); Hemoglobin 8.30 g/dL (11.27-16.99); Mean Corpuscular HGB Conc 31.0 g/dL (30-55); Mean Corpuscular Hemoglobin 28.7 pg (27-33); Mean Corpuscular Volume 92.7 fl (85-98); Nucleated Red Blood Cells % 0 %; Platelet Count 171 10^3/cmm (157-399); Red Blood Count 2.89 10^6/uL (3.85-5.65); White Blood Count 7.37 10^3/uL (3.29-11.43)
[2025-07-27 14:56] LABS: Alanine Aminotransferase 7 U/L (0-33); Albumin Level 3.5 g/dL (3.5-5.2); Alkaline Phosphatase 147 U/L (35-105); Anion Gap 16.1 (5-19); Aspartate Amino Transferase 14 U/L (0-32); Blood Urea Nitrogen 15 mg/dL (8-23); Calcium 8.6 mg/dL (8.5-10.5); Carbon Dioxide 25 mmol/L (22-29); Chloride 105 mmol/L (98-107); Creatinine Clr Calc Pharmacy 31.2793; Globulin 3.1 g/dL (1.3-4.6); Glucose 119 mg/dL (65-115); Iron 28 ug/dL (37-145); Osmolality Calculated 296 mOsm/kg (285-295); Potassium 4.1 mmol/L (3.5-5.1); Sodium 142 mmol/L (136-145); Total Iron Binding Capacity 180 mcg/dl; Total Protein 6.6 g/dL (6.6-8.7); Unsaturated Iron Binding 152 ug/dL (112-347)
[2025-07-27 15:08] LABS: Ferritin 1021 ng/mL (15-150)
[2025-08-10 13:02] LABS: Hematocrit 27.8 % (36-47); Hemoglobin 8.80 g/dL (11.27-16.99); Mean Corpuscular HGB Conc 31.7 g/dL (30-55); Mean Corpuscular Hemoglobin 29.0 pg (27-33); Mean Corpuscular Volume 91.7 fl (85-98); Nucleated Red Blood Cells % 0 %; Platelet Count 145 10^3/cmm (157-399); Red Blood Count 3.03 10^6/uL (3.85-5.65); White Blood Count 7.21 10^3/uL (3.29-11.43)
[2025-08-10 13:27] LABS: Alanine Aminotransferase 8 U/L (0-33); Albumin Level 3.9 g/dL (3.5-5.2); Alkaline Phosphatase 146 U/L (35-105); Anion Gap 14.9 (5-19); Aspartate Amino Transferase 18 U/L (0-32); Blood Urea Nitrogen 16 mg/dL (8-23); Calcium 9.3 mg/dL (8.5-10.5); Carbon Dioxide 22 mmol/L (22-29); Chloride 104 mmol/L (98-107); Creatinine Clr Calc Pharmacy 42.2682; Globulin 3.1 g/dL (1.3-4.6); Glucose 88 mg/dL (65-115); Osmolality Calculated 285 mOsm/kg (285-295); Potassium 3.9 mmol/L (3.5-5.1); Sodium 137 mmol/L (136-145); Total Protein 7.0 g/dL (6.6-8.7)
== END 2025-08-23 23:59 | disposition home or self-care (01) ==
PROVIDERS: Internal Medicine; PCP Family Medicine; Visit Provider Nurse Practitioner
DX: Z53.9 Procedure and treatment not carried out, unspecified reason (principal); C34.12 Malignant neoplasm of upper lobe, left bronchus or lung; C79.51 Secondary malignant neoplasm of bone; C78.7 Secondary malignant neoplasm of liver and intrahepatic bile duct; D50.9 Iron deficiency anemia, unspecified; R06.00 Dyspnea, unspecified; Z79.899 Other long term (current) drug therapy; J38.00 Paralysis of vocal cords and larynx, unspecified
CPT/HCPCS: 36591; 80053; 82728; 83010; 83540; 83550; 83615; 85025; 99213; 99214

== ENCOUNTER 2025-09-08 10:32 | Oncology outpatient (recurring) (ONCR) | payer MEDICARE, BC, SELFPAY ==
[2025-08-25 10:34] LABS: Hematocrit 30.2 % (36-47); Hemoglobin 9.50 g/dL (11.27-16.99); Mean Corpuscular HGB Conc 31.5 g/dL (30-55); Mean Corpuscular Hemoglobin 29.7 pg (27-33); Mean Corpuscular Volume 94.4 fl (85-98); Nucleated Red Blood Cells % 0 %; Platelet Count 141 10^3/cmm (157-399); Red Blood Count 3.20 10^6/uL (3.85-5.65); White Blood Count 7.92 10^3/uL (3.29-11.43)
[2025-08-25 10:51] LABS: Alanine Aminotransferase 9 U/L (0-33); Albumin Level 3.8 g/dL (3.5-5.2); Alkaline Phosphatase 219 U/L (35-105); Anion Gap 14.7 (5-19); Aspartate Amino Transferase 20 U/L (0-32); Blood Urea Nitrogen 17 mg/dL (8-23); Calcium 8.8 mg/dL (8.5-10.5); Carbon Dioxide 23 mmol/L (22-29); Chloride 105 mmol/L (98-107); Creatinine Clr Calc Pharmacy 51.6612; Globulin 3.0 g/dL (1.3-4.6); Glucose 106 mg/dL (65-115); Osmolality Calculated 290 mOsm/kg (285-295); Potassium 3.7 mmol/L (3.5-5.1); Sodium 139 mmol/L (136-145); Total Protein 6.8 g/dL (6.6-8.7)
[2025-08-25 11:11] LABS: Slide Review Slide Review Perform
--- NOTE | 2025-08-26 09:30 | CTR_ITS ---
PROCEDURE INFORMATION: Exam: CT Chest With Contrast; Diagnostic Exam date and time: 08/26/2025 10:18 AM Age: 74 years old Clinical indication: Condition or disease; Other: Adenocarcinoma of left lung; Prior surgery; Surgery date: 6+ months; Surgery type: Kamlesh lobectomy TECHNIQUE: Imaging protocol: Diagnostic computed tomography of the chest with contrast. Radiation optimization: All CT scans at this facility use at least one of these dose optimization techniques: automated exposure control; mA and/or kV adjustment per patient size (includes targeted exams where dose is matched to clinical indication); or iterative reconstruction. Contrast material: OMNI 350; Contrast volume: 100 ml; Contrast route: INTRAVENOUS (IV); COMPARISON: 1. PT PET skull to thigh INIT [id number] 06/03/2025 2:[address] chest abdpel w/*[id number] 05/16/2025 12:49 PM RADIATION DOSE METRICS: Total DLP (mGy-cm): 748.78 FINDINGS: Tubes, catheters and devices: A right internal jugular Port-A-Cath is in place. Lungs: There are postoperative changes of left upper lobectomy again noted. There is a soft tissue mass within the left hilum which measures 2.9 x 2.4 cm, slightly increased in size when using a similar technique and measurement on the CT of 05/16/2025 at which time measured 2.7 x 1.9 cm. There has been development of a 6 mm nodule within the right lower lobe on series 4, image 38 and an 8 mm nodule within the right lower lobe on series 4, image 37. There is a subtle perifissural nodule measuring 4 mm along the right middle lobe as seen on series 4 image 26. Pleural spaces: Unremarkable. No pneumothorax. No pleural effusion. Heart: Unremarkable. No cardiomegaly. No pericardial effusion. Lymph nodes: There are small mediastinal lymph nodes again noted. A subcarinal lymph node measures 1.2 cm in short axis dimension as seen on series 3, image 23 compared with 1.7 cm on 05/16/2025. A precarinal lymph node measures 1.2 cm in short axis dimension on series 3, image 21 and is not significantly changed. Vasculature: Unremarkable. No aortic aneurysm. Bones/joints: There has been interval progression in an ill-defined areas of sclerosis involving the right aspect of the T11 vertebral body. There are additional subtle areas of sclerosis involving the bilateral ribs and vertebral bodies, in particular mild sclerosis involving the right posterior 8th rib and a small sclerotic density within the T7 vertebral body. Soft tissues: Unremarkable. PROCEDURE INFORMATION: Exam: CT Abdomen And Pelvis With Contrast Exam date and time: 08/26/2025 10:18 AM Age: 74 years old Clinical indication: Condition or disease; Other: Adenocarcinoma of left lung; Prior surgery; Surgery date: 6+ months; Surgery type: Kamlesh lobectomy TECHNIQUE: Imaging protocol: Computed tomography of the abdomen and pelvis with contrast. Radiation optimization: All CT scans at this facility use at least one of these dose optimization techniques: automated exposure control; mA and/or kV adjustment per patient size (includes targeted exams where dose is matched to clinical indication); or iterative reconstruction. Contrast material: OMNI 350; Contrast volume: 100 ml; Contrast route: INTRAVENOUS (IV); COMPARISON: 1. PT PET skull to thigh INIT [id number] 06/03/2025 2:[address] chest abdpel w/*[id number] 05/16/2025 12:49 PM RADIATION DOSE METRICS: Total DLP (mGy-cm): 748.78 FINDINGS: Liver: There has been interval progression in size in ill-defined liver lesions. A lesion within the left lobe measures approximately 3.8 x 3 cm compared with 1.2 cm previously. A lesion within the right lobe on series 3, image 55 measures 2.7 x 3.2 cm compared with 1.6 x 1.5 cm previously with development of central necrosis. There has also been interval progression in size and previously noted ill-defined lesions as well as development of new hypodense liver lesions. Gallbladder and biliary ducts: Normal. No calcified stones. No ductal dilation. Pancreas: Normal. No ductal dilation. Spleen: There is stable nodularity of the spleen, suggestive of scarring. Adrenal glands: Normal. No mass. Kidneys and ureters: There is an unchanged left upper pole renal cyst which measures 6 cm in greatest dimension with peripheral calcification. There is an additional simple cyst within the midpole of the left kidney. No hydronephrosis. Stomach and bowel: Unremarkable. No obstruction. No mucosal thickening. Appendix: No evidence of appendicitis. Intraperitoneal space: Unremarkable. No free air. No significant fluid collection. Vasculature: Moderate atherosclerotic vascular calcifications.. No abdominal aortic aneurysm. Lymph nodes: Unremarkable. No enlarged lymph nodes. Urinary bladder: Unremarkable as visualized. Reproductive: The uterus is absent. There are findings suggestive of pelvic floor laxity. Bones/joints: There has been interval progression in destructive lesions involving the right ilium and right acetabulum. There has been development of a subtle sclerotic lesion involving the posterior left ilium and left superior pubic ramus. There is a mild chronic compression deformity of the superior endplate of L4. No acute fractures. Soft tissues: Unremarkable CT/CT chest abdpel w/*[id number] IMPRESSION: 1. Postoperative changes of left upper lobectomy with mild interval enlargement in a left hilar mass, suggestive of worsening neoplasm. 2. Development of right pulmonary nodules, suspicious for metastatic disease. 3. Slight interval decrease in size in a subcarinal lymph node and stable precarinal lymph node 4. Progression of osseous metastatic disease. IMPRESSION: 1. Worsening hepatic metastatic disease. 2. Worsening osseous metastatic disease. COMMENTS: Consistent with the [employer]'s Incidental Findings Committee white paper (J Am Timoteo Radiol 2018): Any incidental renal lesion less than 1 cm or classified as too small to characterize, or any incidental cystic renal lesion characterized as simple-appearing, is likely benign. No follow-up imaging is recommended for these lesions per consensus recommendations based on imaging criteria.
[2025-08-26] MEDS: iohexol 350 mg/mL 500 mL Btl (per mL) IV (10:34)
[2025-08-26] MEDS: iohexol 350 mg/mL 500 mL Btl (per mL) PO (10:34)
== END 2025-09-23 23:59 | disposition home or self-care (01) ==
PROVIDERS: PCP Family Medicine; Visit Provider Nurse Practitioner
DX: C34.12 Malignant neoplasm of upper lobe, left bronchus or lung (principal); C78.7 Secondary malignant neoplasm of liver and intrahepatic bile duct
CPT/HCPCS: 36591; 71260; 74177; 80053; 82306; 83615; 85025; 99213; 99215

== ENCOUNTER 2025-09-28 11:10 | Oncology outpatient (recurring) (ONCR) | payer MEDICARE, BC, SELFPAY ==
[2025-09-28 11:39] LABS: Hematocrit 29.7 % (36-47); Hemoglobin 9.20 g/dL (11.27-16.99); Mean Corpuscular HGB Conc 31.0 g/dL (30-55); Mean Corpuscular Hemoglobin 28.3 pg (27-33); Mean Corpuscular Volume 91.4 fl (85-98); Nucleated Red Blood Cells % 0 %; Platelet Count 209 10^3/cmm (157-399); Red Blood Count 3.25 10^6/uL (3.85-5.65); White Blood Count 15.60 10^3/uL (3.29-11.43)
[2025-09-28 11:57] LABS: Alanine Aminotransferase 8 U/L (0-33); Albumin Level 3.3 g/dL (3.5-5.2); Alkaline Phosphatase 345 U/L (35-105); Anion Gap 16.7 (5-19); Aspartate Amino Transferase 30 U/L (0-32); Blood Urea Nitrogen 16 mg/dL (8-23); Calcium 9.2 mg/dL (8.5-10.5); Carbon Dioxide 22 mmol/L (22-29); Chloride 102 mmol/L (98-107); Creatinine Clr Calc Pharmacy 56.3517; Globulin 2.9 g/dL (1.3-4.6); Glucose 110 mg/dL (65-115); Osmolality Calculated 286 mOsm/kg (285-295); Potassium 3.7 mmol/L (3.5-5.1); Sodium 137 mmol/L (136-145); Total Protein 6.2 g/dL (6.6-8.7)
[2025-09-28] MEDS: palonosetron 0.25 MG in sodium chloride 0.9% 50 ML 187 MG IV (14:08)
[2025-09-28] MEDS: diphenhydrAMINE 50 mg/mL SDV 1mL 25 MG IVP (14:10)
[2025-09-28 14:14] VITALS: O2SAT 97
[2025-09-28 14:15] VITALS: RESP 18; O2SAT 97
[2025-09-28] MEDS: morphine 4 mg/mL SDV 1 mL 2 MG IVP (14:15)
[2025-09-28] MEDS: SODIUM CHLORIDE 0.9% IV (14:41)
[2025-09-28] MEDS: RAMUCIRUMAB IV (14:41)
[2025-09-28 16:13] VITALS: BP 114/66; PULSE 61; RESP 18; TEMP 36.6; O2SAT 96
[2025-09-28 16:42] LABS: Glucose Urine UA Negative (Normal); Nitrate Urine Positive (Negative); Specific Gravity, Urine 1.024 (1.005-1.030)
[2025-09-28 16:47] LABS: Add Urine Microscopic? YES
== END 2025-09-28 23:59 | disposition home or self-care (01) ==
PROVIDERS: PCP Family Medicine; Visit Provider Nurse Practitioner
DX: Z51.11 Encounter for antineoplastic chemotherapy (principal); C34.12 Malignant neoplasm of upper lobe, left bronchus or lung; C78.7 Secondary malignant neoplasm of liver and intrahepatic bile duct; C79.51 Secondary malignant neoplasm of bone; N39.0 Urinary tract infection, site not specified; G89.3 Neoplasm related pain (acute) (chronic); Z92.3 Personal history of irradiation; Z79.899 Other long term (current) drug therapy
CPT/HCPCS: 80053; 81001; 85025; 87077; 87086; 87186; 96375; 96413; 99215; A4222; J1200; J2270; J2469; J3490; J7030; J7050; J9308

== ENCOUNTER 2025-10-01 21:23 | Observation (INO) | payer MEDICARE, BC, SELFPAY ==
--- OUTSIDE RECORDS SUMMARY | 2025-10-01 21:29 | XMS_ITS ---
Author Organization [facility] Address [address] [place] [address] Care Team Providers Care Surgery Manager Name Role Phone Unavailable Primary Care Provider Unavailabl e Active Problems Problem Noted Date Diagnosed Date Shortness of breath 02/27/2025 Chronic respiratory failure with hypoxia 025 Pulmonary nodule 02/27/2025 Mediastinal lymphadenopathy 02/27/2025 Non-small cell cancer of left lung 02/23/2025 Current Treatment and Therapy Plans No current plan information found. Past Treatment and Therapy Plans No past plan information found. Lifetime Dose Tracking * Chemical Lifetime Dose Automatic Entry Manual Entr y Effective Dose 4.8 mSv 4.8 mSv 0 mSv Total DLP 339.9 DLP 339.9 DLP 0 DLP CTDIvol Max 19.5 mGy 19.5 mGy 0 mGy CTDIvol Min 19.5 mGy 19.5 mGy 0 mGy
--- OUTSIDE RECORDS SUMMARY | 2025-10-01 21:29 | XMS_ITS | Clinical Summary ---
Author Organization [facility] Address [address] [place] [address] Care Team Providers Care Culinary Worker Name Role Phone Unavailable Primary Care Provider Unavailabl e Allergies Active Allergy Reactions Criticality Noted Date Comments Codeine Hives High 02/23/2025 Shellfish Containing Products Hives High 2024 Medications Lantus Solostar U-100 Insulin 100 unit/mL (3 mL) solution for injection inject 20 units SUBCUTANEOUSLY EVERY MORNING if fasting glucose >150 FOR THREE DAYS in a row, increase by FIVE units max of 50 units PER day 5 Active ondansetron (ZOFRAN) 4 mg Tablet take 1 tablet by mouth every 8 hours as needed for nausea and vomiting 5 Active Tagrisso 40 mg tablet 80 mg. 5 Active Ozempic 0.25 mg or 0.5 mg (2 mg/3 mL) Pen Injector inject 0.25mg (0.368ml) SUBCUTANEOUSLY every week FOR FOUR weeks THEN increase TO 0.5mg every week 5 Active sertraline (ZOLOFT) 100 mg tablet Take 1 Tablet by mouth daily. 5 Active Gemtesa 75 mg Tablet 5 Active valsartan (DIOVAN) 160 mg tablet Take 160 mg by mouth daily. Active amLODIPine (NORVASC) 10 mg tablet Take 10 mg by mouth daily. Active budesonide (PULMICORT) 180 mcg/Inhalation Aerosol Powdr Breath Activated Take 2 Puffs by inhalation 2 times daily. Active insulin lispro (HumaLOG,ADMEL OG) 100 unit/mL vial Inject by subcutaneous injection. Active ergocalciferol (VITAMIN D2) 50,000 unit capsule Take 50,000 Units by mouth. Active meclizine 25 mg Tablet, Chewable Take by mouth every 6 hours as needed for Dizziness. Active melatonin 1 mg Tablet Take 3 mg by mouth nightly as needed. Active FeroSuL 325 mg (65 mg iron) tablet Take 1 Tablet by mouth daily. Active famotidine (PEPCID) 20 mg tablet Take 1 Tablet by mouth 2 times daily. Active cholecalcifero l, vitamin D3, 5,000 unit Take 5,000 Units by mouth daily. Active cetirizine (ZyrTEC) 10 mg tablet Take 10 mg by mouth daily. Active alendronate (FOSAMAX) 70 mg tablet Take 70 mg by mouth every 7 days. Active Active Problems Problem Noted Date Diagnosed Date Shortness of breath 02/27/2025 Chronic respiratory failure with hypoxia 025 Pulmonary nodule 02/27/2025 Mediastinal lymphadenopathy 02/27/2025 Non-small cell cancer of left lung 02/23/2025 Encounters Date Type Department Care Team Description 07/12/2025 External Device Data [facility] ABSTRACTION Provider, Abstract from Last 3 Months Social History Tobacco Use Types Packs/Day Years Used Date Smoking Tobacco: Never Passive Smoke Exposure: Past Smokeless Tobacco: Never Tobacco Cessation:Counseling Given: Not Answered Comments Unknown Sex and Gender Information Value Date Recorded Sex Assigned at Not on file Legal Sex Female 12:04 PM CDT Gender Identity Not on file Sexual Orientation Not on file Last Filed Vital Signs Vital Sign Reading Time Taken Comments Blood Pressure 138/64 02/23/2025 1:00 PM CDT Pulse 72 02/23/2025 1:00 PM CDT Temperature - - Respiratory Rate - - Oxygen Saturation 96% 02/23/2025 1:00 PM CDT Inhaled Oxygen Concentration - - Weight 73.5 kg (162 lb) 04/15/2025 10:33 AM CDT Height 162.6 cm (5' 4 ) 04/15/2025 10:33 AM CDT Body Mass Index 27.81 04/15/2025 10:33 AM CDT Plan of Treatment Health Maintenance Due Date Last Done Comments DIABETES ANNUAL FOOT EXAM 1968 DIABETES ANNUAL RETINAL EXAM 1968 DIABETES MICROALBUMIN ANNUAL SCREEN 1968 LDL CHOLESTEROL ANNUAL 1968 DTAP/TDAP/TD VACCINES (1 - Tdap) 1969 PNEUMOCOCCAL VACCINE 50+ YEA RS (1 of 2 - PCV) 1969 BREAST CANCER SCREENING 1990 COLORECTAL SCREENING 1995 Colorectal Cancer Screening 1995 FIT-DNA Q 3 years 1995 FIT/FOBT Q 1 year 1995 Flex Sig/CT Colonography Q 5 years 1995 RSV VACCINE (60+ or ) (1 - Risk 50-74 years 1-dose series) 2000 ZOSTER VACCINE (1 of 2) 2000 OSTEOPOROSIS SCREENING 2015 DIABETES HBA1C Q 6 MONTHS 01/31/2022 08/03/2021 INFLUENZA VACCINE (#1) 2025 , 09/07/2022, 08/16/2021 COVID-19 Vaccine (2023-2 5 season) 2025 09/09/2024, 09/04/2023, 09/07/2022, Additional history exists Insurance MEDICARE PART A AND B
[2025-10-01 21:33] VITALS: BP 96/60; PULSE 66; RESP 18; TEMP 36.6; O2SAT 97; BMI 23.6
--- NOTE | 2025-10-01 23:09 | CTR_ITS ---
PROCEDURE INFORMATION: Exam: CT Head Without Contrast Exam date and time: 10/01/2025 11:52 PM Age: 74 years old Clinical indication: Altered mental status/memory loss; Arrival for AMS. Per family, increasing confusion since chemo infusion earlier this week. History of metastatic pulmonary adenocarcinoma. TECHNIQUE: Imaging protocol: Computed tomography of the head without contrast. Total images: 292 Radiation optimization: All CT scans at this facility use at least one of these dose optimization techniques: automated exposure control; mA and/or kV adjustment per patient size (includes targeted exams where dose is matched to clinical indication); or iterative reconstruction. COMPARISON: 1. MR head wo/w con [id number] 06/20/2025 2:01 PM 2. MR head wo/w con [id number] 08/19/2024 2:33 PM RADIATION DOSE METRICS: Total DLP (mGy-cm): 1000.48 FINDINGS: Brain: Left posterior cerebral artery territory demonstrates a 3.5 cm diameter cote/white matter hypodensity involving the occipital lobe and calcarine cortex. Stable focal subcentimeter hypodensities in the bilateral basal ganglia regions likely representing remote lacunar infarctions. Brain parenchyma advanced generalized involutional (atrophic) changes. Deep white matter advanced low attenuation, a nonspecific finding most frequently accounted for by chronic microangiopathic changes in a patient of this age, which can be interpreted based on clinical context. No specific abnormal density within the brain parenchyma. No mass-effect or edema, or pathologic shift of midline structures. No acute intracranial hemorrhage. Satisfactory cote-white matter differentiation. Normal anatomy of the posterior fossa, cerebellum, arnold and medulla allowing for the degree of cerebral parenchymal volume loss. Cerebral ventricles: CSF spaces demonstrate mild generalized enlargement of the ventricles, cisterns and other subarachnoid spaces commensurate with patient's age. Paranasal sinuses: Visualized paranasal sinuses are clear. Mastoid air cells: Visualized mastoid air cells and tympanic cavities are clear. Orbital cavities: Globes are normal in size, shape, and contour. Extraocular muscles, optic nerves, and orbital fat are unremarkable. No orbital mass, hemorrhage, or proptosis. Teeth: Metallic dental restorations/appliances (e.g., fillings, crowns, bridge work, or braces) causing minor artifact; incidental finding usually without clinical significance if not symptomatic. Bones: Left frontotemporal calvarium demonstrates a full-thickness solitary punched out lytic 3 cm diameter focus with mildly irregular margins, associated with a lentiform 1.7 cm thick soft tissue density mass. Soft tissues: Aside from the left temporoparietal skull metastasis, soft tissues are otherwise normal as visualized, demonstrating no masses or swelling/induration. Vasculature: Vertebral artery severe atheromatous calcific plaque. Right carotid siphon severe atheromatous calcific plaque. Left carotid siphon severe atheromatous calcific plaque. Satisfactory major vessel density and caliber characteristic of flowing intravascular blood. CT/CT head wo con* [id number] IMPRESSION: 1. Left occipital and calcarine cortex demonstrates 3.5 cm diameter focal area of hypodensity centered at the cote/white matter junction without significant mass-effect. Differential diagnosis includes vasogenic edema due to a left posterior circulation nonhemorrhagic infarction in a patient with heavily calcified vertebrobasilar arteries, interval development of an intra-axial brain metastasis with vasogenic edema, or possibly an extra-axial occult leptomeningeal metastasis with underlying vasogenic edema. MRI without and with gadolinium contrast would be recommended on a nonurgent basis in order to further clarify the underlying etiology. 2. No acute intracranial hemorrhage, significant mass effect or hydrocephalus. 3. Left temporoparietal calvarium 3 cm diameter punched-out full-thickness lytic lesion containing a mass measuring up to 1.7 cm thickness, favoring lung metastasis in the setting of known metastatic lung cancer (adenocarcinoma). 4. Age-expected severe cerebral atrophy with chronic small-vessel ischemic changes. COMMENTS: THIS REPORT CONTAINS FINDINGS THAT MAY BE CRITICAL TO PATIENT CARE. The exam findings were verbally communicated by me to AMELIA GTZ via telephone conference at 1:09 AM GLASS CUTTER on 10/02/2025. The findings were acknowledged and understood.
--- NOTE | 2025-10-01 23:09 | XRR_ITS ---
PROCEDURE INFORMATION: Exam: XR Chest Exam date and time: 10/01/2025 11:39 PM Age: 74 years old Clinical indication: Prior surgery; Surgery date: 6+ months; Surgery type: Port a cath. Left upper lobectomy; Arrival for AMS. Per family, increasing confusion since chemo infusion earlier this week. History of metastatic pulmonary adenocarcinoma. TECHNIQUE: Imaging protocol: Radiologic exam of the chest. Views: 1 view. Total images: 1 COMPARISON: 1. CT chest abdpel w/*[id number] 08/26/2025 10:[address] chest abdpel w/*[id number] 05/16/2025 12:[address] angio chest [id number] 01/04/2024 3:12 PM 4. CR (CHEST, ) 01/04/2024 2:00 PM FINDINGS: Tubes, catheters and devices: Infusion port tip in SVC, satisfactory. 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 Pleural spaces: No pneumothorax. No large volume pleural effusion. Heart/Mediastinum: The left diaphragm this faintly border forming, projecting behind the shifted cardiopericardial and mediastinal structures. Vasculature: Moderate aortic atherosclerotic calcification. Bones/joints: Left thoracic volume loss with shift of the cardiomediastinal structures leftward characteristic of left upper lobectomy. Left posterior ribcage deformity accounted for by remote prior left thoracotomy. Acromioclavicular joint mild chronic degenerative arthrosis. Shoulder glenohumeral mild osteoarthritis. No new acute displaced fracture, subluxation or dislocation. No intrinsic osseous abnormality identified. Qualitative demineralization of bones (osteopenia) limiting evaluation for nondisplaced fractures. Moderate generalized degenerative changes of the vertebral column, including multilevel osteophytes, degenerative disc height loss, and facet arthrosis, consistent with patient age. Mild dextroconvex scoliosis curvature. Soft tissues: Soft tissues are normal as visualized, demonstrating no masses or swelling/induration. XR/XR chest 1V portable [id number] IMPRESSION: 1. No new or worsening findings; chronic findings stable. 2. No acute displaced fracture with an intermediate degree of confidence due to generalized osteopenia in a patient with known metastatic lung carcinoma (e.g. New left temporoparietal skull metastasis diagnosed earlier today at CT head). 3. Manifestations of prior left upper lobectomy. 4. Stable satisfactory positioning of Port-A-Cath. 5. Stable moderate age-appropriate degenerative spinal changes, with other chronic/non-acute findings as described above. COMMENTS: 1. Qualitative demineralization of bones (osteopenia) limiting evaluation for nondisplaced fractures. 2. If symptoms persist or worsened recommend repeat CR in 7-10 days with fiducial marker, or CT earlier for higher level clinical concern.
[2025-10-01 23:51] LABS: Hematocrit 29.4 % (36-47); Hemoglobin 8.80 g/dL (11.27-16.99); Mean Corpuscular HGB Conc 29.9 g/dL (30-55); Mean Corpuscular Hemoglobin 28.2 pg (27-33); Mean Corpuscular Volume 94.2 fl (85-98); Nucleated Red Blood Cells % 0 %; Platelet Count 128 10^3/cmm (157-399); Red Blood Count 3.12 10^6/uL (3.85-5.65); White Blood Count 11.11 10^3/uL (3.29-11.43)
[2025-10-01 23:59] VITALS: BP 116/48
[2025-10-02] VITALS (13 sets, daily range): BP systolic 104–161; BP diastolic 44–72; PULSE 57–69; RESP 16–18; TEMP 36.3–36.7; O2SAT 90–100; BMI 25.0
[2025-10-02 00:11] LABS: Alanine Aminotransferase 8 U/L (0-33); Albumin Level 3.3 g/dL (3.5-5.2); Alkaline Phosphatase 310 U/L (35-105); Anion Gap 15.8 (5-19); Aspartate Amino Transferase 24 U/L (0-32); Blood Urea Nitrogen 33 mg/dL (8-23); Calcium 8.8 mg/dL (8.5-10.5); Carbon Dioxide 23 mmol/L (22-29); Chloride 103 mmol/L (98-107); Creatinine Clr Calc Pharmacy 32.2010; Globulin 3.0 g/dL (1.3-4.6); Glucose 93 mg/dL (65-115); Magnesium 1.7 mg/dL (1.7-2.3); Osmolality Calculated 293 mOsm/kg (285-295); Potassium 3.8 mmol/L (3.5-5.1); Sodium 138 mmol/L (136-145); Total Protein 6.3 g/dL (6.6-8.7)
[2025-10-02 00:12] LABS: Lactic Sepsis W/Reflex 1.0 mmol/L (0.5-2.2)
[2025-10-02 00:18] LABS: Procalcitonin 0.60 ng/mL (0-0.5)
--- NOTE | 2025-10-02 01:01 | W.ED.AMS ---
HPI - Altered Mental Status General: Chief Complaint: Altered Mental Status Stated Complaint: Had infusion,having some Vision loss, AMS Time Seen by Provider: 10/02/25 00:11 History of Present Illness: Patient is a 74-year-old female with a 2-year history of lung cancer that has aggressively spread over the past 4-5 months. She has been awaiting new treatment for the past two months with delays from a liver biopsy at [place]. Until Friday, she was able to stay on her own and transfer independently using a bedside commode. On Friday, she received an infusion with significant fluid administration, as she was likely dehydrated. Post-infusion, she has progressively weakened to the point of being non-weight bearing and unable to sit up independently. Over the past 24 hours, her confusion has increased with visual hallucinations. She also reports hip pain and a sore throat. Patient has a history of recurrent UTIs and was started on Ciprofloxacin on Friday after a suspected UTI was identified. Related Data Home Medications ?Medication ?Instructions ?Recorded ?Confirmed melatonin 3 mg capsule 3 mg PO DAILY 09/08/23 09/28/25 Previous Rx's ?Medication ?Instructions ?Recorded ergocalciferol (vitamin D2) 50 mcg 50 mcg PO BID #180 caps 12/12/22 (2,000 unit) capsule albuterol sulfate 90 mcg/actuation 2 inh inhalation QID PRN shortness 10/07/23 aerosol inhaler of breath or wheezing #8.5 grams insulin lispro 100 unit/mL 5 unit (0.05 mL) SUBCUT TID #15 mL 12/04/23 subcutaneous pen (Humalog KwikPen (U-100) Insulin) pen needle, diabetic 31 gauge x #100 ea 12/04/2304/08 (TechLITE Pen Needle) pen needle, diabetic 31 gauge x #100 ea 12/05/2304/08 (TechLITE Pen Needle) blood-glucose sensor (Dexcom G6 #3 ea 03/03/24 Sensor device) blood-glucose transmitter (Dexcom #1 ea 03/03/24 G6 Transmitter device) blood-glucose,residential program manager,cont #1 ea 03/03/24 (Dexcom G6 Math [employer] Science Division Chair) budesonide 160 mcg-glycopyr 9 2 inh inhalation BID #10.7 grams 03/31/24 mcg-formot 4.8 mcg/actuation HFA inhaler ([employer]) portable oxygen concentrator and #1 ea 08/04/24 supplies sennosides 8.6 mg tablet (Laxative 8.6 mg PO DAILY PRN constipation 06/08/25 (sennosides)) #60 tabs hydrocodone 10 mg-acetaminophen 1 tab PO Q4H PRN pain 30 days #180 06/29/25 325 mg tablet tabs insulin glargine 100 unit/mL (3 10 unit (0.1 mL) SUBCUT QAM #15 mL 06/29/25 mL) subcutaneous pen (Lantus Solostar U-100 Insulin) meclizine 25 mg tablet 25 mg PO QID PRN dizziness #60 tabs 06/29/25 sulfamethoxazole 800 1 tab PO BID #14 tabs 06/29/25 mg-trimethoprim 160 mg tablet (Bactrim DS) sertraline 100 mg tablet 100 mg PO DAILY #90 tabs 06/30/25 ondansetron HCl 4 mg tablet 4 mg PO Q8H PRN nausea and 08/02/25 vomiting #60 tabs amlodipine 10 mg tablet See Rx Instructions .Route 08/12/25 .COMPLEX #90 tabs famotidine 20 mg tablet (Pepcid) 20 mg PO BID #60 tabs 08/29/25 ferrous sulfate 325 mg (65 mg 325 mg PO BID #60 tabs 09/01/25 iron) tablet baclofen 5 mg tablet 5 mg PO Q12H #30 tabs 09/08/25 erlotinib 150 mg tablet 150 mg PO DAILY #30 tabs 09/13/25 diphenoxylate-atropine 2.5 2 tab PO QID PRN diarrhea #60 tabs 09/16/25 mg-0.025 mg tablet (Lomotil) prochlorperazine maleate 10 mg 10 mg PO Q4H PRN mild nausea #30 09/16/25 tablet (Compazine) tabs fentanyl 50 mcg/hr transdermal 1 patch transdermal Q72H 30 days 09/26/25 patch #10 ea erlotinib 150 mg tablet 150 mg PO DAILY #14 tabs 09/28/25 fentanyl 25 mcg/hr transdermal 1 patch transdermal Q72H 30 days 09/28/25 patch #10 ea morphine 15 mg immediate release 15 mg PO .q4-6h PRN pain 15 days 09/28/25 tablet #90 tabs Bedside Commode #1 ea 09/29/25 Hospital bed #1 ea 09/29/25 ciprofloxacin HCl 500 mg tablet 500 mg PO Q12H #14 tabs 09/29/25 Allergies Allergy/AdvReac Type Severity Reaction Status Date / Time codeine Allergy ADR-Nausea Verified 09/28/25 11:47 shellfish derived Allergy hives/itchi Verified 09/28/25 11:47 ng Review of Systems Narrative: Constitutional: Progressive weakness, unable to bear weight or sit up independently HEENT: Sore throat Neurological: Increased confusion over past 24 hours, visual hallucinations Musculoskeletal: Hip pain Genitourinary: Suspected UTI Ophthalmologic: History of ocular stroke with visual field defects that had improved until recent days PFS ED PFSH: Medical History Blood clot in leg Adenocarcinoma of left lung, stage 4 Left upper lobe - Diagnosed 2022 Dyslipidemia T2DM (type 2 diabetes mellitus) Syncope and collapse The EKG from 06/01/2020 revealed sinus rhythm, minimal left axis deviation, minimal voltage criteria for LVH and some nonspecific T wave changes. Benign essential HTN Glaucoma Labyrinthitis Diabetes Depression Osteoporosis Bradycardia Surgical History S/P lobectomy of lung Left upper lobe - 01/2024 - [facility] H/O hysterectomy with oophorectomy Hx of cataract removal with insertion of prosthetic lens Hx of appendectomy Family History Father Colon cancer Other Hypertension Postsurgical cardiac pacemaker in situ Stroke Social History Smoking and tobacco/nicotine status: never used tobacco/nicotine Second hand smoke exposure: Yes Alcohol intake: never Substance/Drug Use: never Physical Exam Const: COMMON NORMALS: no acute distress GENERAL APPEARANCE: cooperative, ill appearing (Mildly) and frail appearing HENMT: COMMON NORMALS: normocephalic, atraumatic and Normal external nose present HEAD & SCALP: normocephalic and atraumatic FACE & SINUS: normal facial exam and face symmetric NOSE: Normal external nose present Eye: COMMON NORMALS: Equal, round and reactive pupils present and EOMs intact bilaterally PUPIL: Yes Equal, round and reactive pupils present Neck/C-Spine: GENERAL: Yes trachea midline Chest: CHEST: Yes Symmetrical chest wall rise Resp: COMMON NORMALS: normal respiratory effort, No retractions, No use of accessory muscles and clear to auscultation bilaterally AUSCULTATION: clear to auscultation bilaterally Cardio: COMMON NORMALS: regular rate and regular rhythm RATE: regular rate RHYTHM: regular rhythm GI: COMMON NORMALS: Normal to inspection, nondistended, normoactive bowel sounds present Extremity: COMMON NORMALS: no pedal edema Neuro: [place] COMA SCALE: document GCS findings [place] coma scale eye opening: Spontaneous [place] coma scale verbal response: Confused [place] coma scale motor response: Obey commands [place] coma scale total score: 14 SENSORY EXAM: Yes extremities (intact) Psych: COMMON NORMALS: speech normal SPEECH: Yes normal speech Skin: COMMON NORMALS: no rashes or lesions noted GENERAL SKIN EXAM: no rashes or lesions noted Course Vital Signs: Vital signs: Vital Signs Temperature 97.8 F 10/01/25 21:33 Pulse Rate 66 10/02/25 04:48 Respiratory Rate 16 10/02/25 04:17 Blood Pressure 108/46 10/02/25 04:48 Pulse Oximetry 100 10/02/25 04:48 Oxygen Delivery Me thod Room Air 10/02/25 04:26 Oxygen Flow Rate 2 10/02/25 01:35 MDM - Altered Mental Status Medical Decision Making This is a frail 74-year-old female who can no longer transfer bear weight. She is essentially bedridden at this point. Her vitals are stable. She is afebrile CT of the head shows a left occipital lobe 3.5 cm focal hypodensity, favored to be likely metastasis although subacute ischemia cannot be ruled out. There is no hemorrhage. She does have a bony metastasis as well. Her hemoglobin is 8.8. White blood cell count is 11. Creatinine is up to 1.4 from 0.7 a few days ago. She is given a fluid bolus. She is given antibiotics, as she has a urinary tract infection showing significant white blood cells and leukocyte esterase. She will be observed. She will be made DNR per her and her son's request. Hospitalist agrees and will see the patient. Lab Data 10/01/25 23:44 10/01/25 23:44 Radiology Impressions Chest X-Ray 10/01/25 23:09 IMPRESSION: 1. No new or worsening findings; chronic findings stable. 2. No acute displaced fracture with an intermediate degree of confidence due to generalized osteopenia in a patient with known metastatic lung carcinoma (e.g. New left temporoparietal skull metastasis diagnosed earlier today at CT head). 3. Manifestations of prior left upper lobectomy. 4. Stable satisfactory positioning of Port-A-Cath. 5. Stable moderate age-appropriate degenerative spinal changes, with other chronic/non-acute findings as described above. COMMENTS: 1. Qualitative demineralization of bones (osteopenia) limiting evaluation for nondisplaced fractures. 2. If symptoms persist or worsened recommend repeat CR in 7-10 days with fiducial marker, or CT earlier for higher level clinical concern. Head CT 10/01/25 23:09 IMPRESSION: 1. Left occipital and calcarine cortex demonstrates 3.5 cm diameter focal area of hypodensity centered at the cote/white matter junction without significant mass-effect. Differential diagnosis includes vasogenic edema due to a left posterior circulation nonhemorrhagic infarction in a patient with heavily calcified vertebrobasilar arteries, interval development of an intra-axial brain metastasis with vasogenic edema, or possibly an extra-axial occult leptomeningeal metastasis with underlying vasogenic edema. MRI without and with gadolinium contrast would be recommended on a nonurgent basis in order to further clarify the underlying etiology. 2. No acute intracranial hemorrhage, significant mass effect or hydrocephalus. 3. Left temporoparietal calvarium 3 cm diameter punched-out full-thickness lytic lesion containing a mass measuring up to 1.7 cm thickness, favoring lung metastasis in the setting of known metastatic lung cancer (adenocarcinoma). 4. Age-expected severe cerebral atrophy with chronic small-vessel ischemic changes. COMMENTS: THIS REPORT CONTAINS FINDINGS THAT MAY BE CRITICAL TO PATIENT CARE. The exam findings were verbally communicated by me to ALFRED GTZ via telephone conference at 1:09 AM SALES ORDER CLERK on 10/02/2025. The findings were acknowledged and understood. ADDENDUM: 10/02/25 0148 Differential diagnosis includes CYTOTOXIC edema due to a left posterior circulation nonhemorrhagic infarction in a patient with heavily calcified vertebrobasilar arteries, interval development of an intra-axial brain metastasis with vasogenic edema, or possibly umbilical extra-axial dural-leptomeningeal metastasis accounting for underlying vasogenic edema. MRI without and with gadolinium contrast would be recommended on a nonurgent basis in order to further clarify the underlying etiology. Laboratory Results WBC 11.11 10^3/uL (3.29-11.43) 10/01/25 23:44 RBC 3.12 10^6/uL (3.85-5.65) L 10/01/25 23:44 Hgb 8.80 g/dL (11.27-16.99) L 10/01/25 23:44 Hct 29.4 % (36-47) L 10/01/25 23:44 MCV 94.2 fl (85-98) 10/01/25 23:44 MCH 28.2 pg (27-33) 10/01/25 23:44 MCHC 29.9 g/dL (30-55) L 10/01/25 23:44 RDW 14.8 % (12.1-15.1) 10/01/25 23:44 Plt Count 128 10^3/cmm (157-399) L 10/01/25 23:44 MPV 12.1 fL (7.4-10.4) H 10/01/25 23:44 Neut % (Auto) 82.4 % 10/01/25 23:44 Lymph % (Auto) 5.6 % 10/01/25 23:44 [place] % (Auto) 6.3 % 10/01/25 23:44 Eos % (Auto) 1.8 % 10/01/25 23:44 Baso % (Auto) 0.4 % 10/01/25 23:44 Neut # (Auto) 9.16 10^3/uL (1.8-7.7) H 10/01/25 23:44 Lymph # (Auto) 0.6 10^3/uL (0.8-4.8) L 10/01/25 23:44 [place] # (Auto) 0.7 10^3/uL (0.2-0.9) 10/01/25 23:44 Eos # (Auto) 0.2 10^3/uL (0.0-0.8) 10/01/25 23:44 Baso # (Auto) 0.0 10^3/uL (0.0-0.1) 10/01/25 23:44 Nucleated RBC % (auto) 0 % 10/01/25 23:44 Nucleated RBCs # 0.0 /100WBC 10/01/25 23:44 Sodium 138 mmol/L (136-145) 10/01/25 23:44 Potassium 3.8 mmol/L (3.5-5.1) 10/01/25 23:44 Chloride 103 mmol/L (98-107) 10/01/25 23:44 Carbon Dioxide 23 mmol/L (22-29) 10/01/25 23:44 Anion Gap 15.8 (5-19) 10/01/25 23:44 BUN 33 mg/dL (8-23) H 10/01/25 23:44 Creatinine 1.4 mg/dL (0.5-0.9) H 10/01/25 23:44 GFR Calculation Not Reportable 10/01/25 23:44 Glucose 93 mg/dL (65-115) 10/01/25 23:44 Calculated Osmolality 293 mOsm/kg (285-295) 10/01/25 23:44 Lactic Acid 1.0 mmol/L (0.5-2.2) 10/01/25 23:44 Calcium 8.8 mg/dL (8.5-10.5) 10/01/25 23:44 Magnesium 1.7 mg/dL (1.7-2.3) 10/01/25 23:44 Total Bilirubin 0.4 mg/dL (0.15-1.2) 10/01/25 23:44 AST 24 U/L (0-32) 10/01/25 23:44 ALT 8 U/L (0-33) 10/01/25 23:44 Alkaline Phosphatase 310 U/L (35-105) H 10/01/25 23:44 Creatine Kinase 42 U/L (26-192) 10/01/25 23:44 C-Reactive Protein 147.3 mg/L (0.0-4.9) H 10/01/25 23:44 Total Protein 6.3 g/dL (6.6-8.7) L 10/01/25 23:44 Albumin 3.3 g/dL (3.5-5.2) L 10/01/25 23:44 Globulin 3.0 g/dL (1.3-4.6) 10/01/25 23:44 Procalcitonin 0.60 ng/mL (0-0.5) H 10/01/25 23:44 TSH 1.66 uIU/mL (0.27-4.20) 10/01/25 23:44 Urine Color Yellow (Yellow) 10/02/25 01:22 Urine Appearance Turbid (CLEAR) A 10/02/25 01:22 Urine pH 5.0 (5-7) 10/02/25 01:22 Ur Specific [place] 1.017 (1.005-1.030) 10/02/25 01:22 Urine Protein 1+ (Negative) A 10/02/25 01:22 Urine Glucose (UA) Negative (Normal) 10/02/25 01:22 Urine Ketones Trace (Negative) 10/02/25 01:22 Urine Blood 2+ (Negative) A 10/02/25 01:22 Urine Nitrate Negative (Negative) 10/02/25 01:22 Urine Bilirubin Negative (Negative) 10/02/25 01:22 Urine Urobilinogen 1.0 mg/dL (Negative) 10/02/25 01:22 Ur Leukocyte Esterase 3+ (Negative) A 10/02/25 01:22 Urine RBC 11-20 /hpf (0-2) H 10/02/25 01:22 Urine WBC >100 /hpf (0-5) H 10/02/25 01:22 Ur Squamous Epith Cells 6-10 /hpf (0-5) 10/02/25 01:22 Amorphous Sediment Not Reportable 10/02/25 01:22 Urine Bacteria None seen /hpf (NONE) 10/02/25 01:22 Hyaline Casts 39.70 /lpf 10/02/25 01:22 All radiology interpretation(s) finalized by discharge Discharge Plan Discharge Patient Disposition: Admitted As Inpatient Admit Provider: Fei Tai Clinical Impression: Weakness, Metastatic cancer to bone, Acute alteration in mental status, CINDI (acute kidney injury), Brain lesion Condition: Serious Coding Level of Care Code ED Telecommunications Engineer for Carmella Rodrigues
[2025-10-02 01:28] LABS: Glucose Urine UA Negative (Normal); Nitrate Urine Negative (Negative); Specific Gravity, Urine 1.017 (1.005-1.030)
[2025-10-02 01:33] LABS: Add Urine Microscopic? YES; Universal Test for UA Present (0)
[2025-10-02] MEDS: cefTRIAXone 1,000 mg SDV 1000 MG IVP (03:34)
--- NOTE | 2025-10-02 04:14 | PM.HP ---
Providers/Chief Complaint Admitting Physician: Fei Tai MD Primary Care Provider: Naren Castle MD Chief Complaint: Had infusion,having some Vision loss, AMS History of Present Illness As per the previous notes and the patient/family: the son was at the bedside Betty Lantigua is a 74 year old female with past medical history of adenocarcinoma of the lung diagnosed approximately 1-1/2-year ago s/p chemotherapy, resection and currently on immunotherapy came with altered mentation and more or less progressive weakness over 1 to 2 weeks as per the son. The son informed further that her mother is more or less pleasant and interactive however during conversation she might lose her track of conversation and may report seeing things that are not around or some gestures that are not sensible. There is no recent fevers or chills. No nausea or vomiting. No abdominal pain or diarrhea. More or less there are lower leg swellings but are not worsening. The son further explained that her mother has been deteriorating over the last 2 to 3 weeks therefore considering her progressive critical illness with guarded prognosis after discussion with her mother, she is preferred to be DNR. Furthermore through case management will also consider home hospice or other options to take care of her in this state. Review of Systems General: Reports: 10 or more systems reviewed and unremarkable except in HPI and below Medications/Allergies Home Medications ?Medication ?Instructions ?Recorded ?Confirmed ?Last Taken ?Type ergocalciferol (vitamin D2) 50 mcg 50 mcg PO BID #180 caps 12/12/22 10/02/25 10/01/25 08:00 Rx (2,000 unit) capsule pen needle, diabetic 31 gauge x #100 ea 12/04/23 10/02/25 Unknown Rx 5/16 (TechLITE Pen Needle) pen needle, diabetic 31 gauge x #100 ea 12/05/23 10/02/25 Unknown Rx 5/16 (TechLITE Pen Needle) blood-glucose sensor (Dexcom G6 #3 ea 03/03/24 10/02/25 Unknown Rx Sensor device) blood-glucose transmitter (Dexcom #1 ea 03/03/24 10/02/25 Unknown Rx G6 Transmitter device) blood-glucose,director software quality assurance,cont #1 ea 03/03/24 10/02/25 Unknown Rx (Dexcom G6 Business Programmer) portable oxygen concentrator and #1 ea 08/04/24 10/02/25 Unknown Rx supplies sennosides 8.6 mg tablet (Laxative 8.6 mg PO DAILY PRN constipation 06/08/25 10/02/25 10/01/25 08:00 Rx (sennosides)) #60 tabs hydrocodone 10 mg-acetaminophen 1 tab PO Q4H PRN pain 30 days #180 06/29/25 10/02/25 Unknown Rx 325 mg tablet tabs insulin glargine 100 unit/mL (3 10 unit (0.1 mL) SUBCUT QAM #15 mL 06/29/25 10/02/25 Unknown Rx mL) subcutaneous pen (Lantus Solostar U-100 Insulin) meclizine 25 mg tablet 25 mg PO QID PRN dizziness #60 tabs 06/29/25 10/02/25 Unknown Rx sertraline 100 mg tablet 100 mg PO DAILY #90 tabs 06/30/25 10/02/25 10/01/25 08:00 Rx ondansetron HCl 4 mg tablet 4 mg PO Q8H PRN nausea and 08/02/25 10/02/25 10/01/25 08:00 Rx vomiting #60 tabs amlodipine 10 mg tablet See Rx Instructions .Route 08/12/25 10/02/25 10/01/25 08:00 Rx .COMPLEX #90 tabs famotidine 20 mg tablet (Pepcid) 20 mg PO BID #60 tabs 08/29/25 10/02/25 10/01/25 08:00 Rx ferrous sulfate 325 mg (65 mg 325 mg PO BID #60 tabs 09/01/25 10/02/25 10/01/25 08:00 Rx iron) tablet baclofen 5 mg tablet 5 mg PO Q12H #30 tabs 09/08/25 10/02/25 09/30/25 Rx diphenoxylate-atropine 2.5 2 tab PO QID PRN diarrhea #60 tabs 09/16/25 10/02/25 Unknown Rx mg-0.025 mg tablet (Lomotil) prochlorperazine maleate 10 mg 10 mg PO Q4H PRN mild nausea #30 09/16/25 10/02/25 Unknown Rx tablet (Compazine) tabs fentanyl 50 mcg/hr transdermal 1 patch transdermal Q72H 30 days 09/26/25 10/02/2509/29/25 20:00 Rx patch #10 ea erlotinib 150 mg tablet 150 mg PO DAILY #14 tabs 09/28/25 10/02/25 09/29/25 Rx fentanyl 25 mcg/hr transdermal 1 patch transdermal Q72H 30 days 09/28/25 10/02/25 09/29/25 20:00 Rx patch #10 ea morphine 15 mg immediate release 15 mg PO .q4-6h PRN pain 15 days 09/28/25 10/02/25 10/01/25 18:00 Rx tablet #90 tabs Bedside Commode #1 ea 09/29/25 10/02/25 Unknown Rx Hospital bed #1 ea 09/29/25 10/02/25 Unknown Rx ciprofloxacin HCl 500 mg tablet 500 mg PO Q12H #14 tabs 09/29/25 10/02/25 10/01/25 08:00 Rx melatonin 10 mg tablet 10 mg PO BEDTIME 10/02/25 10/02/25 09/28/25 20:00 History Allergies Allergy/AdvReac Type Severity Reaction Status Date / Time codeine Allergy ADR-Nausea Verified 09/28/25 11:47 shellfish derived Allergy hives/itchi Verified 09/28/25 11:47 ng PFSH Acute PFSH: Medical History (Updated 10/02/25 @ 06:12 by Fei Tai MD) Blood clot in leg Adenocarcinoma of left lung, stage 4 Left upper lobe - Diagnosed 2022 Dyslipidemia T2DM (type 2 diabetes mellitus) Syncope and collapse The EKG from 06/01/2020 revealed sinus rhythm, minimal left axis deviation, minimal voltage criteria for LVH and some nonspecific T wave changes. Benign essential HTN Glaucoma Labyrinthitis Diabetes Depression Osteoporosis Bradycardia Surgical History S/P lobectomy of lung Left upper lobe - 01/2024 - [facility] H/O hysterectomy with oophorectomy Hx of cataract removal with insertion of prosthetic lens Hx of appendectomy Family History Father Colon cancer Other Hypertension Postsurgical cardiac pacemaker in situ Stroke Social History Smoking and tobacco/nicotine status: never used tobacco/nicotine Second hand smoke exposure: Yes Alcohol intake: never Substance/Drug Use: never Vitals/I&O/Wt Last Vital Signs Temp 97.8 F 10/01/25 21:33 Pulse 66 10/01/25 21:33 Resp 18 10/01/25 21:33 BP 107/64 10/02/25 01:35 Pulse Ox 97 10/02/25 01:35 O2 Del Method Nasal Cannula 10/02/25 01:35 O2 Flow Rate 2 10/02/25 01:35 Weight last 48 hrs Weight 62.596 kg Physical Exam Narrative: General: A pleasant lady, alert and oriented, lying comfortably without any distress, HEENT: Normocephalic, atraumatic, grossly unremarkable exam Cardio: normal rate rhythm, normal S1-S2 without any murmurs. Respiratory: normal vascular breathing on auscultation however the examination is limited because patient poor respiratory effort but grossly no crackles, wheezes or stridor found GI: Abdomen soft, nontender, nondistended, normoactive bowel sounds present all 4 quadrants, Neuro: Grossly intact motor or sensory exam. Coordination, gait was not assessed since patient is frail and unable to hold her weight. No nystagmus. Behavior: Appropriate and cooperative Extremities: Adequate palpable pulses, mild trace edema Data 10/01/25 23:44 10/01/25 23:44 A&P Assessment and plan 1. Brain lesion: - Patient came as a case of altered mentation with gait instability.Found to have lesions at the cote-white junction on CT scan of the brain with high suspicion of metastasis since the patient has history of active cancer being treated at the moment. - Patient has vasogenic edema however there are no focal neurological deficits signs and no signs of brainstem compression therefore to be monitored and if present then consider steroids - MRI brain with contrast, - follow neurochecks - OT PT evaluation - 2. UTI (urinary tract infection): UA with possibility of UTI, based on patient immunocompromise state and considering risk and benefits to treat for UTI. Follow blood cultures and urine cultures Empiric 1 g of ceftriaxone daily Maintain normal hemodynamics Maintain MAP above 65 3. Metastatic cancer to bone: Adequate analgesia to continue Patient on immunotherapy as outpatient Patient had a recent PET scan The family does not proceed with further intervention and is aware of the poor prognosis and preferred for DNR and possible hospice care 4. Adenocarcinoma of upper lobe of left lung: As mentioned above 5. T2DM (type 2 diabetes mellitus): Insulin sliding scale 6. Encounter for screening involving social determinants of health (SDoH): Patient having advanced lung malignancy with metastasis Patient and the family prefers DNR with possible further options of disposition considering hospice? Need manager case assistant finance manager for further disposition and postdischarge plan PDMP PDMP Reviewed: Not Reviewed Attestations Medical Necessity Statement*: Patient will stay overnight for further management of her altered mental status possible underlying brain mets versus UTI and consideration of having case management on board after family discussion for goals of care Time Spent in Patient Care: 16 - 35 minutes (>than 50% of time spent in counselling and/or direct pt care on unit). Other Attestations: Patient condition has been discussed at length with the patient/family, I have independently reviewed the chart labs imaging/diagnostics/EKG. the goals of care and code status with the patient/family/NOK/legal patient service representative, and documented accordingly. The management has been done according to the current clinical condition with respect to patient goals of care and based on recommendations/guidelines. The patient/family has been informed about the current condition and further plan of care. Agreed with the plan of care and understood without any language barrier. Every effort was made to ensure accuracy of electrical sign servicer. Any obvious errors or omissions should be clarified with the author of the document. Coding Level of Care Code Acute Code for Chg Fwd Diagnoses Brain lesion G93.9 UTI (urinary tract infection) N39.0 Metastatic cancer to bone C79.51 Adenocarcinoma of upper lobe of left lung C34.12 T2DM (type 2 diabetes mellitus) E11.9 Encounter for screening involving social determinants of health (SDoH) Z13.9
[2025-10-02] MEDS: morphine 4 mg/mL SDV 1 mL IVP (04:17)
[2025-10-02] MEDS: ondansetron 2 mg/ML SDV 2 mL 4 MG IVP (04:17)
[2025-10-02 04:18] LABS: Thyroid Stimulating Hormone 1.66 uIU/mL (0.27-4.20)
[2025-10-02] MEDS: sulfamethoxazole-trimeth DS 160-800 mg Tablet 1 TAB PO (05:37)
[2025-10-02] MEDS: pantoprazole 40 mg SDV IVP ×2 (05:37→13:23)
[2025-10-02] MEDS: heparin 5,000 unit/mL INJ 1 mL 5000 UNIT SUBCUT ×2 (05:37→16:21)
[2025-10-02] MEDS: alum-mag-hydroxide-sime 30 mL UDC 15 ML PO ×3 (05:38→16:21)
--- NOTE | 2025-10-02 06:08 | MRR_ITS ---
THIS REPORT CONTAINS FINDINGS THAT MAY BE CRITICAL TO PATIENT CARE. The findings were verbally communicated via telephone conference with DR. SOUTH at 11:38 AM [employer]IPE on 10/02/2025. The findings were acknowledged and understood. PROCEDURE INFORMATION: Exam: MR Head Without Contrast Exam date and time: 10/02/2025 10:08 AM Age: 74 years old Clinical indication: Altered mental status/memory loss and malaise or fatigue; Confusion or disorientation; HX of lung cancer; Additional info: Evaluation of brain mass TECHNIQUE: Imaging protocol: Magnetic resonance imaging of the head without contrast. COMPARISON: 1. CT head wo con* [id number] 10/01/2025 11:52 PM 2. MR head wo/w con [id number] 06/20/2025 2:01 PM FINDINGS: Brain: Geographic area of diffusion restriction in the left occipital lobe with a small linear focus of diffusion restriction in the left cerebellar hemisphere. Associated increased T2/FLAIR signal and mildly decreased T1 weighted signal. Tiny focus of diffusion restriction also in the high right parietal lobe. Partially enhancing lesion in the left occipital lobe measuring 0.9 x 0.8 x 0.9 cm appears new from prior (for example series 1300, image 121 and series 1302, image 33). A 0.4 cm enhancing focus is also seen in the right parietal lobe (series 1200, image 105). T2 hyperintensities in the periventricular white matter compatible with chronic small vessel ischemic changes. Old lacunar infarct adjacent to the right basal ganglia. Generalized cortical atrophy. Cerebral ventricles: Normal. No ventriculomegaly. Bones: Left frontotemporal lesion described below. Paranasal sinuses: Normal as visualized. No acute sinusitis. Mastoid air cells: Normal as visualized. No mastoid effusion. Orbital cavities: Unremarkable. Soft tissues: Enhancing mass centered along the left frontotemporal calvarium and extending into the soft tissues of the scalp as well as along the leptomeninges measures about 3.1 x 1.4 x 4.2 cm. MR/MR head wo/w con [id number] IMPRESSION: 1. Findings compatible with acute to early subacute ischemia in the left occipital lobe with small foci of ischemia also in the left cerebellar hemisphere and high right parietal lobe. The ischemic focus in the left occipital lobe could represent occlusion of a small branch from the left posterior cerebral artery given the wedge-shaped/geographic appearance. However, in the setting of additional small ischemic foci in the left cerebellum and right parietal lobe, findings may be on the basis of a thromboembolic process. No territorial infarcts visualized. 2. Partially enhancing 0.9 cm mass in the left occipital lobe adjacent to the area of ischemia and a 0.4 cm focal area of enhancement of the right parietal lobe are new from prior, concerning for metastases in a patient with known lung cancer. 3. Enhancing mass centered along the left frontotemporal calvarium measuring up to 4.2 cm is consistent with metastasis, new from 06/20/2025. This mass appears to involve the subjacent leptomeninges.
[2025-10-02 08:29] LABS: Hematocrit 25.0 % (36-47); Hemoglobin 7.50 g/dL (11.27-16.99); Mean Corpuscular HGB Conc 30.0 g/dL (30-55); Mean Corpuscular Hemoglobin 28.4 pg (27-33); Mean Corpuscular Volume 94.7 fl (85-98); Nucleated Red Blood Cells % 0 %; Platelet Count 116 10^3/cmm (157-399); Red Blood Count 2.64 10^6/uL (3.85-5.65); White Blood Count 8.86 10^3/uL (3.29-11.43)
[2025-10-02 08:48] LABS: Alanine Aminotransferase 7 U/L (0-33); Albumin Level 2.9 g/dL (3.5-5.2); Alkaline Phosphatase 245 U/L (35-105); Anion Gap 13.7 (5-19); Aspartate Amino Transferase 18 U/L (0-32); Blood Urea Nitrogen 30 mg/dL (8-23); Calcium 8.3 mg/dL (8.5-10.5); Carbon Dioxide 22 mmol/L (22-29); Chloride 109 mmol/L (98-107); Creatinine Clr Calc Pharmacy 35.6674; Globulin 2.4 g/dL (1.3-4.6); Glucose 96 mg/dL (65-115); Osmolality Calculated 298 mOsm/kg (285-295); Potassium 3.7 mmol/L (3.5-5.1); Sodium 141 mmol/L (136-145); Total Protein 5.3 g/dL (6.6-8.7)
[2025-10-02 09:12] LABS: Magnesium 1.7 mg/dL (1.7-2.3)
[2025-10-02 09:47] LABS: Potassium, Radom Urine 37 mmol/L; Urine Random Chloride 14 mmol/L; Urine Random Sodium 29 mmol/L
[2025-10-02] MEDS: gadobenate dimeglumine 20 mL vial IV (10:32)
[2025-10-02 10:55] LABS: Procalcitonin 0.51 ng/mL (0-0.5)
--- NOTE | 2025-10-02 12:22 | P.PN_ITS ---
Subjective 2 Subjective: Admitted overnight. H&P and labs appreciated. Vitals/I&O/Wt Last Vital Signs Temp 97.5 F L 10/02/25 11:03 Pulse 66 10/02/25 11:03 Resp 18 10/02/25 11:03 BP 113/67 10/02/25 11:03 Pulse Ox 90 10/02/25 11:03 O2 Del Method Room Air 10/02/25 11:03 O2 Flow Rate 2 10/02/25 01:35 10/01/25 10/02/25 10/02/25 22:59 06:59 14:59 Intake Total 1000 / 1000 Output Total 200 / 200 Balance 800 / 800 Weight last 48 hrs Weight 66.723 kg Weight 66.723 kg Weight 66.179 kg Weight 62.596 kg Physical Exam 2 Narrative: General: A pleasant lady, alert and oriented, lying comfortably without any distress, AO x 1 to 2, confused, drowsy after Valium for MRI HEENT: Normocephalic, atraumatic, grossly unremarkable exam Cardio: normal rate rhythm, normal S1-S2 without any murmurs. Respiratory: normal vascular breathing on auscultation however the examination is limited because patient poor respiratory effort but grossly no crackles, wheezes or stridor found GI: Abdomen soft, nontender, nondistended, normoactive bowel sounds present all 4 quadrants, Neuro: Grossly intact motor or sensory exam. Coordination, gait was not assessed since patient is frail and unable to hold her weight. No nystagmus. Behavior: Appropriate and cooperative Extremities: Adequate palpable pulses, mild trace edema Data 10/02/25 08:00 10/02/25 08:00 A&P Assessment and plan 1. Brain lesion: - Patient came as a case of altered mentation with gait instability.Found to have lesions at the cote-white junction on CT scan of the brain with high suspicion of metastasis since the patient has history of active cancer being treated at the moment. - Patient has vasogenic edema however there are no focal neurological deficits signs and no signs of brainstem compression therefore to be monitored and if present then consider steroids - MRI brain with contrast, - follow neurochecks - OT PT evaluation - 2. UTI (urinary tract infection): UA with possibility of UTI, based on patient immunocompromise state and considering risk and benefits to treat for UTI. Follow blood cultures and urine cultures Empiric 1 g of ceftriaxone daily Maintain normal hemodynamics Maintain MAP above 65 3. Metastatic cancer to bone: Adequate analgesia to continue Patient on immunotherapy as outpatient Patient had a recent PET scan The family does not proceed with further intervention and is aware of the poor prognosis and preferred for DNR and possible hospice care 4. Adenocarcinoma of upper lobe of left lung: As mentioned above 5. Type 2 diabetes mellitus with hyperglycemia, without long-term current use of insulin: Insulin sliding scale 6. Encounter for screening involving social determinants of health (SDoH): Patient having advanced lung malignancy with metastasis Patient and the family prefers DNR with possible further options of disposition considering hospice? Need supportive employment case manager certified nursing assistant instructor for further disposition and postdischarge plan 7. CINDI (acute kidney injury): 8. Acute alteration in mental status: 9. Memory deficit: 10. Stroke: Plan: Plan for the day: Altered mental status most likely in setting of brain mets along with acute and subacute stroke seen on MRI brain along with CINDI in setting of high-dose pain medication. For now change fentanyl to 25 mcg only. Change oral morphine to 50 mg every 6 hours. Continue with IV fluids with NS at 75 cc/h. Aspirin 325 mg one-time followed by 81 mg daily. Monitor hemoglobin. Protonix 40 mg twice daily. Appreciate recent A1c. Check lipid panel. Will do further workup with echocardiogram depending on goals of care. For CINDI continue with IV fluid as above. Check urine lites and urine creatinine. Medical reconciliation done for nephrotoxic drugs. Discontinue Bactrim. Had detailed goals of care with patient's [id number] at bedside. After the [id number] they are considering hospice further decision has to be made by patient's DPOA son who is not at bedside currently. Will have further goals of care with son once available. PDMP PDMP Reviewed: Not Reviewed Attestations 2 Medical Necessity Statement*: Requires further hospitalization for goals of care discussion in a patient with history of lung cancer with significant mets, brain mets, acute and subacute stroke on immunotherapy Diagnoses Brain lesion G93.9 UTI (urinary tract infection) N39.0 Metastatic cancer to bone C79.51 Adenocarcinoma of upper lobe of left lung C34.12 Type 2 diabetes mellitus with hyperglycemia, without long-term current use of insulin E11.65 Diabetes mellitus prison insulin use: without intermediate school teacher use Diabetes mellitus complication status: with hyperglycemia Encounter for screening involving social determinants of health (SDoH) Z13.9 CINDI (acute kidney injury) N17.9 Acute alteration in mental status R41.82 Memory deficit R41.3 Stroke I63.9
[2025-10-02] MEDS: MELATONIN 3 MG TABLET PO (20:20)
--- NOTE | 2025-10-03 00:18 | PC.NURSE ---
Addendum entered by Jordyn Albrecht LPN 10/03/25 00:20: Witnessed destruction of patch with [facility] Original Note: Patients fentanyl patch removed and destroyed with [facility]
[2025-10-03] MEDS: alum-mag-hydroxide-sime 30 mL UDC 15 ML PO ×3 (04:03→16:52)
[2025-10-03 06:00] VITALS: BMI 24.9
[2025-10-03 07:35] VITALS: BP 132/63; PULSE 60; RESP 16; TEMP 37.1; O2SAT 97
--- NOTE | 2025-10-03 07:43 | P.DS_ITS ---
Discharge Providers Date of Admission: 10/02/25 03:55 Date of Discharge: October 03, 2025 Attending Provider at Admission: Fei Tai MD Attending Provider at Discharge: Michael Arnett MD Primary Care Provider: Naren Castle MD Diagnoses at Discharge Discharge Diagnosis 1. Brain lesion: 2. UTI (urinary tract infection): 3. Metastatic cancer to bone: 4. 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 Type 2 diabetes mellitus with hyperglycemia, without long-term current use of insulin: 6. Encounter for screening involving social determinants of health (SDoH): 7. CINDI (acute kidney injury): 8. Acute alteration in mental status: 9. Memory deficit: 10. Stroke: Reason for Visit Reason for Visit: Had infusion,having some Vision loss, AMS Brief History: Per HPI As per the previous notes and the patient/family: the son was at the bedside Betty Lantigua is a 74 year old female with past medical history of adenocarcinoma of the lung diagnosed approximately 1-1/2-year ago s/p chemotherapy, resection and currently on immunotherapy came with altered mentation and more or less progressive weakness over 1 to 2 weeks as per the son. The son informed further that her mother is more or less pleasant and interactive however during conversation she might lose her track of conversation and may report seeing things that are not around or some gestures that are not sensible. There is no recent fevers or chills. No nausea or vomiting. No abdominal pain or diarrhea. More or less there are lower leg swellings but are not worsening. The son further explained that her mother has been deteriorating over the last 2 to 3 weeks therefore considering her progressive critical illness with guarded prognosis after discussion with her mother, she is preferred to be DNR. Furthermore through case management will also consider home hospice or other options to take care of her in this state. Hospital Course Hospital Course Patient was admitted to the hospital further evaluation and management of altered mental status, hallucinations. She was found to have CINDI due to poor oral intake. MRI brain was done which was consistent with brain mets and acute and subacute infarcts. It is believed her AMS is most likely is a combination of brain mets, acute and subacute infarcts along with acute kidney injury in setting of significant pain medications. Further goals of care discussions were done in detail with family at bedside who requested patient to be transition to hospice. She has been discharged in comfortable state with hospice for further care as per discussions of goals of care. Physical Exam Narrative: General: A pleasant lady, alert and oriented, lying comfortably without any dis tress, AO x 1 to 2, confused, family at bedside HEENT: Normocephalic, atraumatic, grossly unremarkable exam Cardio: normal rate rhythm, normal S1-S2 without any murmurs. Respiratory: normal vascular breathing on auscultation however the examination is limited because patient poor respiratory effort but grossly no crackles, wheezes or stridor found GI: Abdomen soft, nontender, nondistended, normoactive bowel sounds present all 4 quadrants, Neuro: Grossly intact motor or sensory exam. Coordination, gait was not assessed since patient is frail and unable to hold her weight. No nystagmus. Behavior: Appropriate and cooperative Extremities: Adequate palpable pulses, mild trace edema Urinary Catheter Management: Recinos Latex Free: Cath Placed During This Visit: yes Reason for Continuing Indwelling Catheter: Other Urinary Catheter Date of Insertion: 10/02/25 Urinary Catheter Time of Insertion: 05:30 Discharge Data Studies Completed and Pending Completed Studies During Hospitalization Category Date Time Status CT head wo con* [id number] Stat Cat Scan 10/01/25 23:09 Completed XR chest 1V portable [id number] Stat Exams 10/01/25 23:09 Completed MR head wo/w con [id number] Routine MRI 10/02/25 06:08 Completed Pending at discharge Category Date Time Status Blood Culture Stat Lab 10/01/25 23:44 Received Urine Culture Stat Lab 10/02/25 01:22 Received Radiology Impressions Chest X-Ray 10/01/25 23:09 IMPRESSION: 1. No new or worsening findings; chronic findings stable. 2. No acute displaced fracture with an intermediate degree of confidence due to generalized osteopenia in a patient with known metastatic lung carcinoma (e.g. New left temporoparietal skull metastasis diagnosed earlier today at CT head). 3. Manifestations of prior left upper lobectomy. 4. Stable satisfactory positioning of Port-A-Cath. 5. Stable moderate age-appropriate degenerative spinal changes, with other chronic/non-acute findings as described above. COMMENTS: 1. Qualitative demineralization of bones (osteopenia) limiting evaluation for nondisplaced fractures. 2. If symptoms persist or worsened recommend repeat CR in 7-10 days with fiducial marker, or CT earlier for higher level clinical concern. Head CT 10/01/25 23:09 IMPRESSION: 1. Left occipital and calcarine cortex demonstrates 3.5 cm diameter focal area of hypodensity centered at the cote/white matter junction without significant mass-effect. Differential diagnosis includes vasogenic edema due to a left posterior circulation nonhemorrhagic infarction in a patient with heavily calcified vertebrobasilar arteries, interval development of an intra-axial brain metastasis with vasogenic edema, or possibly an extra-axial occult leptomeningeal metastasis with underlying vasogenic edema. MRI without and with gadolinium contrast would be recommended on a nonurgent basis in order to further clarify the underlying etiology. 2. No acute intracranial hemorrhage, significant mass effect or hydrocephalus. 3. Left temporoparietal calvarium 3 cm diameter punched-out full-thickness lytic lesion containing a mass measuring up to 1.7 cm thickness, favoring lung metastasis in the setting of known metastatic lung cancer (adenocarcinoma). 4. Age-expected severe cerebral atrophy with chronic small-vessel ischemic changes. COMMENTS: THIS REPORT CONTAINS FINDINGS THAT MAY BE CRITICAL TO PATIENT CARE. The exam findings were verbally communicated by me to AMELIA GTZ via telephone conference at 1:09 AM BEHAVIORAL SCIENCES INSTRUCTOR on 10/02/2025. The findings were acknowledged and understood. ADDENDUM: 10/02/25 0148 Differential diagnosis includes CYTOTOXIC edema due to a left posterior circulation nonhemorrhagic infarction in a patient with heavily calcified vertebrobasilar arteries, interval development of an intra-axial brain metastasis with vasogenic edema, or possibly umbilical extra-axial dural-leptomeningeal metastasis accounting for underlying vasogenic edema. MRI without and with gadolinium contrast would be recommended on a nonurgent basis in order to further clarify the underlying etiology. Head MRI 10/02/25 06:08 IMPRESSION: 1. Findings compatible with acute to early subacute ischemia in the left occipital lobe with small foci of ischemia also in the left cerebellar hemisphere and high right parietal lobe. The ischemic focus in the left occipital lobe could represent occlusion of a small branch from the left posterior cerebral artery given the wedge-shaped/geographic appearance. However, in the setting of additional small ischemic foci in the left cerebellum and right parietal lobe, findings may be on the basis of a thromboembolic process. No territorial infarcts visualized. 2. Partially enhancing 0.9 cm mass in the left occipital lobe adjacent to the area of ischemia and a 0.4 cm focal area of enhancement of the right parietal lobe are new from prior, concerning for metastases in a patient with known lung cancer. 3. Enhancing mass centered along the left frontotemporal calvarium measuring up to 4.2 cm is consistent with metastasis, new from 06/20/2025. This mass appears to involve the subjacent leptomeninges. Laboratory Results WBC 8.86 10^3/uL (3.29-11.43) 10/02/25 08:00 RBC 2.64 10^6/uL (3.85-5.65) L 10/02/25 08:00 Hgb 7.50 g/dL (11.27-16.99) L 10/02/25 08:00 Hct 25.0 % (36-47) L 10/02/25 08:00 MCV 94.7 fl (85-98) 10/02/25 08:00 MCH 28.4 pg (27-33) 10/02/25 08:00 MCHC 30.0 g/dL (30-55) 10/02/25 08:00 RDW 14.8 % (12.1-15.1) 10/02/25 08:00 Plt Count 116 10^3/cmm (157-399) L 10/02/25 08:00 MPV 12.3 fL (7.4-10.4) H 10/02/25 08:00 Neut % (Auto) 79.8 % 10/02/25 08:00 Lymph % (Auto) 7.2 % 10/02/25 08:00 [place] % (Auto) 8.1 % 10/02/25 08:00 Eos % (Auto) 1.4 % 10/02/25 08:00 Baso % (Auto) 0.3 % 10/02/25 08:00 Neut # (Auto) 7.07 10^3/uL (1.8-7.7) 10/02/25 08:00 Lymph # (Auto) 0.6 10^3/uL (0.8-4.8) L 10/02/25 08:00 [place] # (Auto) 0.7 10^3/uL (0.2-0.9) 10/02/25 08:00 Eos # (Auto) 0.1 10^3/uL (0.0-0.8) 11/09/25 08:00 Baso # (Auto) 0.0 10^3/uL (0.0-0.1) 10/02/25 08:00 Nucleated RBC % (auto) 0 % 10/02/25 08:00 Nucleated RBCs # 0.0 /100WBC 10/02/25 08:00 Sodium 141 mmol/L (136-145) 10/02/25 08:00 Potassium 3.7 mmol/L (3.5-5.1) 10/02/25 08:00 Chloride 109 mmol/L (98-107) H 10/02/25 08:00 Carbon Dioxide 22 mmol/L (22-29) 10/02/25 08:00 Anion Gap 13.7 (5-19) 10/02/25 08:00 BUN 30 mg/dL (8-23) H 10/02/25 08:00 Creatinine 1.3 mg/dL (0.5-0.9) H 10/02/25 08:00 GFR Calculation Not Reportable 10/02/25 08:00 Glucose 96 mg/dL (65-115) 10/02/25 08:00 POC Glucose 79 mg/dL (70-110) 10/02/25 10:51 Calculated Osmolality 298 mOsm/kg (285-295) H 10/02/25 08:00 Lactic Acid 1.0 mmol/L (0.5-2.2) 10/01/25 23:44 Calcium 8.3 mg/dL (8.5-10.5) L 10/02/25 08:00 Phosphorus 3.2 mg/dL (2.5-4.5) 10/02/25 08:00 Magnesium 1.7 mg/dL (1.7-2.3) 10/02/25 08:00 Total Bilirubin 0.3 mg/dL (0.15-1.2) 10/02/25 08:00 AST 18 U/L (0-32) 10/02/25 08:00 ALT 7 U/L (0-33) 10/02/25 08:00 Alkaline Phosphatase 245 U/L (35-105) H 10/02/25 08:00 Creatine Kinase 42 U/L (26-192) 10/01/25 23:44 C-Reactive Protein 147.3 mg/L (0.0-4.9) H 10/01/25 23:44 Total Protein 5.3 g/dL (6.6-8.7) L 10/02/25 08:00 Albumin 2.9 g/dL (3.5-5.2) L 10/02/25 08:00 Globulin 2.4 g/dL (1.3-4.6) 10/02/25 08:00 Procalcitonin 0.51 ng/mL (0-0.5) H 10/02/25 08:00 TSH 1.66 uIU/mL (0.27-4.20) 10/01/25 23:44 Urine Color Yellow (Yellow) 10/02/25 01:22 Urine Appearance Turbid (CLEAR) A 10/02/25 01:22 Urine pH 5.0 (5-7) 10/02/25 01:22 Ur Specific [place] 1.017 (1.005-1.030) 10/02/25 01:22 Urine Protein 1+ (Negative) A 10/02/25 01:22 Urine Glucose (UA) Negative (Normal) 10/02/25 01:22 Urine Ketones Trace (Negative) 10/02/25 01:22 Urine Blood 2+ (Negative) A 10/02/25 01:22 Urine Nitrate Negative (Negative) 10/02/25 01:22 Urine Bilirubin Negative (Negative) 10/02/25 01:22 Urine Urobilinogen 1.0 mg/dL (Negative) 10/02/25 01:22 Ur Leukocyte Esterase 3+ (Negative) A 10/02/25 01:22 Urine RBC 11-20 /hpf (0-2) H 10/02/25 01:22 Urine WBC >100 /hpf (0-5) H 10/02/25 01:22 Ur Squamous Epith Cells 6-10 /hpf (0-5) 10/02/25 01:22 Amorphous Sediment Not Reportable 10/02/25 01:22 Urine Bacteria None seen /hpf (NONE) 10/02/25 01:22 Hyaline Casts 39.70 /lpf 10/02/25 01:22 Ur Random Sodium 29 mmol/L 10/02/25 01:22 Ur Random Potassium 37 mmol/L 10/02/25 01:22 Ur Random Chloride 14 mmol/L 10/02/25 01:22 Urine Creatinine 158 mg/dL (28-217) 10/02/25 01:22 Vitals Last Vital Signs Temp 98.7 F 10/03/25 07:35 Pulse 60 10/03/25 07:35 Resp 16 10/03/25 07:35 BP 132/63 10/03/25 07:35 Pulse Ox 97 10/03/25 07:35 O2 Del Method Nasal Cannula 10/03/25 07:35 O2 Flow Rate 2 10/02/25 15:06 Discharge Plan Discharge Patient Disposition: Hospice - Medical Facility Condition: Serious Prescriptions: Continued (DME) portable oxygen concentrator and supplies See Rx Instructions .Route .MEDSUPPLY Qty: 1 0RF Rx Instructions: As directed sennosides [Laxative (sennosides)] 8.6 mg tablet 8.6 mg PO DAILY PRN (Reason: constipation) Qty: 60 0RF ferrous sulfate 325 mg (65 mg iron) tablet 325 mg PO BID Qty: 60 2RF baclofen 5 mg tablet 5 mg PO Q12H Qty: 30 3RF Rx Instructions: 1-2 tablets every 12 hours for back spasm ergocalciferol (vitamin D2) 50 mcg (2,000 unit) capsule 50 mcg PO BID Qty: 180 3RF hydrocodone-acetaminophen 10-325 mg tablet 1 tab PO Q4H PRN (Reason: pain) 30 Days Qty: 180 0RF meclizine 25 mg tablet 25 mg PO QID PRN (Reason: dizziness) Qty: 60 2RF insulin glargine [Lantus Solostar U-100 Insulin] 100 unit/mL (3 mL) insulin pen 10 unit SUBCUT QAM Qty: 15 6RF Rx Instructions: Inject 10 U qAM. (DME) pen needle, diabetic [TechLITE Pen Needle] 31 gauge x 5/16 needle See Rx Instructions .ROUTE .MEDSUPPLY Qty: 100 6RF Rx Instructions: As directed (DME) pen needle, diabetic [TechLITE Pen Needle] 31 gauge x 5/16 needle See Rx Instructions .ROUTE .MEDSUPPLY Qty: 100 6RF Rx Instructions: As directed (DME) Dexcom G6 Phthalic Acid Purifier Misc See Rx Instructions .Route Qty: 1 0RF Rx Instructions: As directed (DME) Dexcom G6 Sensor Device See Rx Instructions .Route Qty: 3 6RF Rx Instructions: As directed (DME) Dexcom G6 Transmitter Device See Rx Instructions .Route Qty: 1 0RF Rx Instructions: As directed sertraline 100 mg tablet 100 mg PO DAILY Qty: 90 3RF ondansetron HCl 4 mg tablet 4 mg PO Q8H PRN (Reason: nausea and vomiting) Qty: 60 6RF famotidine [Pepcid] 20 mg tablet 20 mg PO BID Qty: 60 3RF diphenoxylate-atropine [Lomotil] 2.5-0.025 mg tablet 2 tab PO QID MDD 8 tab PRN (Reason: diarrhea) Qty: 60 3RF Rx Instructions: 2 tabs orally 4xdaily until control of diarrhea prochlorperazine maleate [Compazine] 10 mg tablet 10 mg PO Q4H PRN (Reason: mild nausea) Qty: 30 3RF fentanyl 50 mcg/hr patch 72 hour 1 patch transdermal Q72H 30 Days Qty: 10 0RF fentanyl 25 mcg/hr patch 72 hour 1 patch transdermal Q72H 30 Days Qty: 10 0RF Rx Instructions: Apply with 50 mcg patch to total dose of 75 mcg morphine 15 mg tablet 15 mg PO .q4-6h MDD 6 PRN (Reason: pain) 15 Days Qty: 90 0RF (DME) Bedside Commode See Rx Instructions .Route .MEDSUPPLY Qty: 1 0RF Rx Instructions: As directed (DME) Hospital bed See Rx Instructions .Route .MEDSUPPLY Qty: 1 0RF Rx Instructions: As directed melatonin 10 mg Tablet 10 mg PO BEDTIME erlotinib 150 mg Tablet 150 mg PO DAILY Qty: 14 5RF Rx Instructions: must be taken on empty stomach, at least 1 hr before or 2 hrs after a meal/food do not smoke with this medication Discontinued amlodipine 10 mg tablet See Rx Instructions .ROUTE .COMPLEX Qty: 90 2RF Dose Instruction: TAKE 1 TABLET BY MOUTH EVERY DAY Rx Instructions: TAKE 1 TABLET BY MOUTH EVERY DAY ciprofloxacin HCl 500 mg tablet 500 mg PO Q12H Qty: 14 1RF Referrals: [facility] [Outside] Discharge Activity: Resume usual activity and Increase activity as tolerated Patient Instructions: Opioid Safety, Patient Portal & New Instructions Discharge Attestations Time Spent in Discharge Care*: greater than 30 min Specific Discharge Activities: educating patient, educating and/or supporting family/caregiver, discussing with pcp/other providers, discussing with upper caser/social workers/dc planners, documenting/other paperwork and evaluating patient/reviewing data Status at Discharge: Cognitive status at discharge: mildly impaired cognition , Behavioral status at discharge: cooperative , Functional status at discharge: other , Overall status at discharge: patient is back to baseline Quality Metrics Clinical Quality Measures [ Cerebrovascular Accident { Contraindication to Antithrombotic: Other (Hospice); Contraindication to Anticoagulation: Overlap treatment not indicated; Contraindication to Statin: Other (Hospice);}] Coding Level of Care Code 65981 Total time (in minutes) for Discharge: 65 Diagnoses Brain lesion G93.9 UTI (urinary tract infection) N39.0 Metastatic cancer to bone C79.51 Adenocarcinoma of upper lobe of left lung C34.12 Type 2 diabetes mellitus with hyperglycemia, without long-term current use of insulin E11.65 Diabetes mellitus complication status: with hyperglycemia Diabetes mellitus superintendent terminal insulin use: without superintendent terminal use Encounter for screening involving social determinants of health (SDoH) Z13.9 CINDI (acute kidney injury) N17.9 Acute alteration in mental status R41.82 Memory deficit R41.3 Stroke I63.9
[2025-10-04] MEDS: alum-mag-hydroxide-sime 30 mL UDC 15 ML PO (04:29)
[2025-10-04 05:15] VITALS: RESP 16
[2025-10-04] MEDS: oxyCODONE-APAP 5-325 mg Tablet 1 TAB PO (05:15)
--- NOTE | 2025-10-04 08:22 | PM.PN ---
Subjective Subjective: Patient did not go yesterday as SNF could not be arranged. Has remained comfortable. Vitals/I&O/Wt Last Vital Signs Temp 98.7 F 10/03/25 07:35 Pulse 60 10/03/25 07:35 Resp 16 10/04/25 05:15 BP 132/63 10/03/25 07:35 Pulse Ox 97 10/03/25 07:35 O2 Del Method Room Air 10/04/25 07:39 O2 Flow Rate 2 10/03/25 08:00 10/03/25 10/04/25 10/04/25 22:59 06:59 14:59 Intake Total 100 / 220 Balance 100 / -180 Weight last 48 hrs Weight 65.771 kg Weight 65.771 kg Weight 66.723 kg Physical Exam Narrative: Deferred given comfort care status Urinary Catheter Management: Recinos Latex Free: Cath Placed During This Visit: yes Reason for Continuing Indwelling Catheter: Other Urinary Catheter Date of Insertion: 10/02/25 Urinary Catheter Time of Insertion: 05:30 Data 10/02/25 08:00 10/02/25 08:00 Micro: Microbiology 10/02/25 01:22 Urine Culture - Preliminary Urine,Clean Catch A&P Assessment and plan 1. Brain lesion: - Patient came as a case of altered mentation with gait instability.Found to have lesions at the cote-white junction on CT scan of the brain with high suspicion of metastasis since the patient has history of active cancer being treated at the moment. - Patient has vasogenic edema however there are no focal neurological deficits signs and no signs of brainstem compression therefore to be monitored and if present then consider steroids - MRI brain with contrast, - follow neurochecks - OT PT evaluation - 2. UTI (urinary tract infection): UA with possibility of UTI, based on patient immunocompromise state and considering risk and benefits to treat for UTI. Follow blood cultures and urine cultures Empiric 1 g of ceftriaxone daily Maintain normal hemodynamics Maintain MAP above 65 3. Metastatic cancer to bone: Adequate analgesia to continue Patient on immunotherapy as outpatient Patient had a recent PET scan The family does not proceed with further intervention and is aware of the poor prognosis and preferred for DNR and possible hospice care 4. Adenocarcinoma of upper lobe of left lung: As mentioned above 5. Type 2 diabetes mellitus with hyperglycemia, without long-term current use of insulin: Insulin sliding scale 6. Encounter for screening involving social determinants of health (SDoH): Patient having advanced lung malignancy with metastasis Patient and the family prefers DNR with possible further options of disposition considering hospice? Need vocational case manager assistant director of security for further disposition and postdischarge plan 7. CINDI (acute kidney injury): 8. Acute alteration in mental status: 9. Memory deficit: 10. Stroke: Plan: Plan for the day: Plan to discharge today with comfort care status/hospice to SNF. PDMP PDMP Reviewed: Not Reviewed Attestations Medical Necessity Statement*: Discharge to SNF with hospice Diagnoses Brain lesion G93.9 UTI (urinary tract infection) N39.0 Metastatic cancer to bone C79.51 Adenocarcinoma of upper lobe of left lung C34.12 Type 2 diabetes mellitus with hyperglycemia, without long-term current use of insulin E11.65 Diabetes mellitus truck terminal manager insulin use: without truck terminal manager use Diabetes mellitus complication status: with hyperglycemia Encounter for screening involving social determinants of health (SDoH) Z13.9 CINDI (acute kidney injury) N17.9 Acute alteration in mental status R41.82 Memory deficit R41.3 Stroke I63.9
--- NOTE | 2025-10-04 08:48 | PC.NURSE ---
Port a cath heparized and saline flushed then deaccessed. 2x2 and tegaderm applied. All questions answered and patient tolerated well.
--- NOTE | 2025-10-04 09:36 | PC.NURSE ---
This nurse called report to ROCAEL Howard at [facility] at 9:00am. They will transport pt to their facility, they are just unsure on what time.
--- NOTE | 2025-10-04 10:57 | PC.NURSE ---
Per ROCAEL Howard at [facility], patients reis catheter will have to be removed prior to transporting pt to their facility unless she has a hx of neurogenic bladder or retention.
[2025-10-04 11:12] VITALS: BP 132/63; PULSE 60; O2SAT 97
== END 2025-10-04 11:13 | disposition hospice, inpatient (51) ==
LOC: ER 10-02 03:38 → MEDSURG 10-02 04:09
PROVIDERS: Admitting Provider Student in an Organized Health Care Education/Training Program; Emergency Provider Emergency Medicine; PCP Family Medicine; Visit Provider Student in an Organized Health Care Education/Training Program
DX: R41.82 Altered mental status, unspecified (principal); G93.9 Disorder of brain, unspecified; N39.0 Urinary tract infection, site not specified; C79.51 Secondary malignant neoplasm of bone; C34.12 Malignant neoplasm of upper lobe, left bronchus or lung; E11.65 Type 2 diabetes mellitus with hyperglycemia; N17.9 Acute kidney failure, unspecified; R41.3 Other amnesia; I63.9 Cerebral infarction, unspecified; Z79.891 Long term (current) use of opiate analgesic; Z79.4 Long term (current) use of insulin; Z99.81 Dependence on supplemental oxygen; E78.5 Hyperlipidemia, unspecified; F32.A Depression, unspecified; R00.1 Bradycardia, unspecified; Z80.0 Family history of malignant neoplasm of digestive organs
CPT/HCPCS: 36415; 36416; 36591; 51702; 70450; 70553; 71045; 80053; 81001; 82436; 82550; 82570; 82962; 83605; 83735; 84100; 84133; 84145; 84300; 84443; 85025; 86140; 87040; 87086; 96372; 96374; 96375; 96376; 99285; 99291; G0378; J0696; J1642; J1644; J2270; J2405; J2470; J7030; J9999